=== PATIENT | male | born 1985 ===

== ENCOUNTER 2021-01-24 06:24 | Outpatient (REF) | payer OTHER, SELFPAY ==
[2021-01-24 08:22] LABS: MANUAL DIFF FLAG NO
[2021-01-24 08:30] LABS: Basophils Percent Auto 0.7 % (0-2); Eosinophils Absolute Auto 0.2 X10*3/uL (0.0-0.4); Eosinophils Percent Auto 3.2 % (0-4); Hematocrit 46.4 % (42-52); Hemoglobin 15.5 g/dl (14.0-18.0); Imm Gran Abs Auto 0.01 X10*3/uL (0.00-0.03); Imm Gran Pct Auto 0.2 % (0.0-0.4); Lymphocytes Absolute Auto 2.4 X10*3/uL (1.2-4.9); Lymphocytes Percent Auto 40.2 % (20-40); Mean Corpuscular HGB Conc 33.4 g/dl (31.0-36.0); Mean Corpuscular Hemoglobin 28.4 pg (27.0-33.0); Mean Corpuscular Volume 85.1 fL (80-98); Mean Platelet Volume 10.8 fL (9.4-12.4); Monocytes Absolute Auto 0.5 X10*3/uL (0.1-1.2); Monocytes Percent Auto 8.2 % (2-11); Neutrophils Absolute Auto 2.9 X10*3/uL (2.0-8.3); Neutrophils Percent Auto 47.5 % (45-73); Platelet Count 240 X10*3/uL (160-400); Red Blood Count 5.45 X10*6/uL (4.60-5.80); Red Cell Distribution Width 12.6 % (11.0-16.0)
[2021-01-24 09:04] LABS: Alanine Aminotransferase 20 U/L (0-40); Albumin Level 4.4 g/dL (3.5-5.0); Alkaline Phosphatase 66 U/L (39-117); Anion Gap 12 (12-20); Aspartate Amino Transferase 20 U/L (5-37); Bilirubin Total 0.3 mg/dL (0.0-1.0); Blood Urea Nitrogen 13 mg/dL (9-16); Calcium 9.1 mg/dL (8.4-10.2); Carbon Dioxide 26 mmol/L (22-29); Chloride 106 mmol/L (96-108); Cholesterol 199 mg/dL; Estimated Glomerular Filt Rate > 60; Glucose Fasting 100 mg/dL (60-99); HDL Cholesterol 37 mg/dL; LDL Cholesterol Calculated 135 mg/dl; Potassium 4.2 mmol/L (3.3-5.1); Sodium 140 mmol/L (135-145); Total Protein 7.1 g/dL (6.5-8.0); Triglycerides 136 mg/dL
== END 2021-01-24 06:25 | disposition home or self-care (01) ==
LOC: HO.LAB 06:24
PROVIDERS: PCP Internal Medicine; Visit Provider Internal Medicine
DX: D64.9 Anemia, unspecified (principal); G43.909 Migraine, unspecified, not intractable, without status migrainosus; E78.5 Hyperlipidemia, unspecified; Z82.49 Family history of ischemic heart disease and other diseases of the circulatory system
CPT/HCPCS: 36415; 80053; 80061; 85025

== ENCOUNTER 2021-12-31 14:46 | Emergency (ER) | payer OTHER, SELFPAY ==
--- NOTE | ~2021-12-31 | XR_ITS ---
EXAMINATION: XR CHEST CLINICAL INFORMATION: Chest pain COMPARISON: None TECHNIQUE: Frontal view of the chest was obtained. FINDINGS: Lungs clear. Heart and pulmonary vessels are normal. No congestive change. XR/XR chest 1V IMPRESSION: No active disease.
--- NOTE | 2021-12-31 15:02 | ECG_ITS ---
Test Reason : CHEST PAIN Blood Pressure : / mmHG Vent. Rate : 085 BPM Atrial Rate : 085 BPM P-R Int : 122 ms QRS Dur : 084 ms QT Int : 342 ms P-R-T Axes : 068 047 047 degrees QTc Int : 406 ms Normal sinus rhythm Minimal voltage criteria for LVH, may be normal variant ( Sokolow-Ortiz ) Borderline ECG No previous ECGs available Referred By: Generic ED Physician Electronically Signed By:DESHAUN PARIKH
[2021-12-31 15:09] VITALS: BP 129/79; PULSE 80; RESP 18; TEMP 36.8; O2SAT 99; BMI 21.0
[2021-12-31 15:22] LABS: MANUAL DIFF FLAG NO
[2021-12-31 15:25] LABS: Basophils Percent Auto 0.4 % (0-2); Eosinophils Absolute Auto 0.1 X10*3/uL (0.0-0.4); Eosinophils Percent Auto 0.9 % (0-4); Hemoglobin 14.5 g/dl (14.0-18.0); Imm Gran Abs Auto 0.01 X10*3/uL (0.00-0.03); Imm Gran Pct Auto 0.1 % (0.0-0.4); Lymphocytes Percent Auto 24.6 % (20-40); Mean Corpuscular HGB Conc 34.5 g/dl (31.0-36.0); Mean Corpuscular Hemoglobin 28.8 pg (27.0-33.0); Mean Corpuscular Volume 83.5 fL (80.0-98.0); Mean Platelet Volume 9.8 fL (9.4-12.4); Monocytes Absolute Auto 0.5 X10*3/uL (0.1-1.2); Monocytes Percent Auto 6.1 % (2-11); Neutrophils Absolute Auto 5.5 x10*3/uL (2.0-8.3); Neutrophils Percent Auto 67.9 % (45-73); Platelet Count 251 X10*3/uL (160-400); Red Blood Count 5.03 X10*6/uL (4.60-5.80); Red Cell Distribution Width 12.6 % (11.0-16.0); White Blood Count 8.1 X10*3/uL (4.8-10.8)
[2021-12-31 15:37] LABS: Anion Gap 11 (12-20); Blood Urea Nitrogen 15 mg/dL (9-16); Calcium 8.9 mg/dL (8.4-10.2); Carbon Dioxide 26 mmol/L (22-29); Chloride 107 mmol/L (96-108); Creatinine Clr Calc Pharmacy 107.4; Estimated Glomerular Filt Rate > 60; Glucose Random 104 mg/dL (60-115); Potassium 4.1 mmol/L (3.3-5.1); Sodium 140 mmol/L (135-145)
[2021-12-31 15:45] LABS: Troponin-I High Sensitivity < 3.5 ng/L (<3.5-35.0)
--- NOTE | 2021-12-31 20:21 | ED.CHESTPAIN ---
HPI - Chest Pain General Chief Complaint: Chest Pain Stated Complaint: chest pain Time Seen by Provider: 12/31/21 20:11 Source: patient Mode of arrival: ambulatory Limitations: no limitations History of Present Illness HPI narrative: 36-year-old male history of migraine headaches, presenting to the emergency department with concerns of substernal chest pain x2 days, unchanged. 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 He tells me if he sits up in a crunch position the pain worsens. He reports that the chest pain is substernal in nature without radiation, it is intermittent, at times precipitated by movement. He tells me that it feels like a pressure and at times it feels stabbing depending on the position he is in. He tells me this is never happened to him before. No significant personal or family history of heart disease. He denies fevers, chills, nausea, vomiting, headache, vision changes, dizziness, shortness of breath, numbness, tingling. MD complaint: chest pain Onset (ago): day(s) (2) Related Data Previous Rx's Medication Instructions Recorded sumatriptan succinate 100 mg tablet 100 mg PO Q2-4H PRN migraine 11/04/21 headache 30 days #9 tabs naproxen 500 mg tablet 500 mg PO BID PRN pain #14 tabs 12/31/21 Allergies Allergy/AdvReac Type Severity Reaction Status Date / Time No Known Allergies Allergy Verified 12/31/21 15:09 [No Known Allergies*] Review of Systems Review of Systems: Constitutional : No Weight loss, No Fever, No Chills, No Fatigue, No Malaise ENT/Mouth : No sore throat, No Rhinorrhea Eyes: No Eye Pain, No Swelling, No Redness Cardiovascular : + Chest Pain, No SOB, No Dyspnea on Exertion, No Orthopnea, No Edema, No Palpitations Respiratory : No Cough, No Sputum, No Wheezing Gastrointestinal : No Nausea, No Vomiting, No Diarrhea, No Constipation, No abdominal Pain, No Hematochezia, No Melena Genitourinary : No Dysuria, No Urinary Frequency, No Hematuria, Musculoskeletal : No joint pain, No Myalgias, No Joint Swelling Skin : No Skin Lesions, No rash Neuro : No Weakness, No Numbness, No Dizziness, No Headache Psych : No Anxiety/Panic, No Depression All other systems reviewed and are negative Yes all other systems are reviewed and are negative [facility] Past Medical History Attestation statement: The following information was validated with the patient. Source: old records reviewed and nursing notes reviewed Medical History Encounter for physical examination Family history of hypertension Migraines Surgical History No history of previous surgery Family History Family History Mother Hypertension Diabetes mellitus Father Hypertension CAD (coronary artery disease) Social History Social History Housing: House Alcohol intake: current Alcohol intake frequency: holidays/special occasions only Alcohol type: beer Patient Tobacco Use Status: Current everyday Tobacco user Cigarettes Per Day: 1 e-Cigarette/Vaping Use: Never Used Second Hand Smoke Exposure: Yes Advance Directives: No Advance Directives Information Provided: No service: No Current occupational status: employed Cognitive needs: No Hearing needs: No Vision needs: No Physical Exam Vital Signs: Vital Signs: Last Vital Signs Temp 98.2 F 12/31/21 15:09 Pulse 73 12/31/21 21:01 Resp 18 12/31/21 15:09 BP 129/79 12/31/21 15:09 Pulse Ox 100 12/31/21 21:01 O2 Del Method 12/31/21 21:01 BMI result Body Mass Index 21.0 VSS Appearance: Alert.? Oriented X3.? No acute distress.? Head: Normocephalic, atraumatic, no step-offs or deformities Eyes: Pupils equal, round and reactive to light.? ENT: Pharynx normal.? Neck: Normal inspection.? Neck supple.? CVS: Normal heart rate and rhythm.? Pulses normal.?+ pain with palpation of anterior chest wall. Respiratory: No respiratory distress.? Breath sounds normal.? Abdomen: Soft and nontender.? Skin: Skin warm and dry.? Normal skin color.? Normal skin turgor.? Extremities: No lower extremity edema.? No calf ttp. 5/5 strength to bilateral upper and lower extremities Neuro: Oriented X 3.? No motor deficit.? No sensory deficit. CN 2-12 intact Course Reevaluation(s) Reevaluation #1: CBC within normal limits. Chemistry with no acute electrolyte abnormalities requiring intervention. Troponin negative. Chest x-ray with no acute findings. Patient given Toradol, will re-evaluate patient for pain. Time: 20:58 Reevaluation #2: Patient states feeling better after toradol, again likely costochondritis. Very low suspicion for ACS. At this time patient will be discharged home. Advised to return with new or worsening symptoms. Outline these on his discharge. Time: 21:14 MDM - Chest Pain MDM Narrative Medical decision making narrative: 1999 36 yo m presents w/ reproducible anterior chest wall pain X2 days. Reports labor intensive job. No significant cardiac hx. PE w/ reproducible chest pain with palpation of anterior chest wall. Regular rate and rhythm. Lungs clear. Abdomen soft nontender nondistended. Neuro exam is nonfocal. Normal cerebellar function. 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 Likely costochondritis, unlikely ACS, PE, pneumonia. Plan at this time is cardiac monitoring, basic labs, troponin, EKG Medical Records Data Attestation: I reviewed the patient's medical records. Lab Data Attestation: I reviewed the patient's lab results. Result diagrams: 12/31/21 15:18 12/31/21 15:18 Labs: Lab Results 12/31/21 12/31/21 12/31/21 Range/Units 15:18 15:18 15:18 WBC 8.1 (4.8-10.8) X10*3/uL RBC 5.03 (4.60-5.80) X10*6/uL Hgb 14.5 (14.0-18.0) g/dl Hct 42.0 (42.0-52.0) % MCV 83.5 (80.0-98.0) fL MCH 28.8 (27.0-33.0) pg MCHC 34.5 (31.0-36.0) g/dl RDW 12.6 (11.0-16.0) % Plt Count 251 (160-400) X10*3/uL MPV 9.8 (9.4-12.4) fL Immature Gran % (Auto) 0.1 (0.0-0.4) % Neut % (Auto) 67.9 (45-73) % Lymph % (Auto) 24.6 (20-40) % [place] % (Auto) 6.1 (2-11) % Eos % (Auto) 0.9 (0-4) % Baso % (Auto) 0.4 (0-2) % Lymph # (Auto) 2.0 (1.2-4.9) X10*3/uL [place] # (Auto) 0.5 (0.1-1.2) X10*3/uL Eos # (Auto) 0.1 (0.0-0.4) X10*3/uL Baso # (Auto) 0.0 (0.0-0.2) X10*3/uL Abs Immat Gran (auto) 0.01 (0.00-0.03) X10*3/uL Absolute Neuts (auto) 5.5 (2.0-8.3) x10*3/uL Absolute Nucleated RBC 0.000 (0.0-0.012) X10*3/uL Nucleated RBC % (auto) 0.0 (0.0-0.2) /100WBC Sodium 140 (135-145) mmol/L Potassium 4.1 (3.3-5.1) mmol/L Chloride 107 (96-108) mmol/L Carbon Dioxide 26 (22-29) mmol/L Anion Gap 11 L (12-20) BUN 15 (9-16) mg/dL Creatinine 0.87 (0.5-1.4) mg/dL Estim Creat Clear Calc 107.4 Estimated GFR > 60 Random Glucose 104 (60-115) mg/dL Calcium 8.9 (8.4-10.2) mg/dL Troponin I High Sens < 3.5 (<3.5-35.0) ng/L ECG Data ECG #1: Attestation: I personally reviewed and interpreted this ECG as follows: ECG interpretation date: 12/31/21 ECG interpretation time: 20:55 Prior ECG tracings: not available for review Interpretation: Ventricular rate of 85, MS normal, QRS normal, QT/QTC normal. EKG with normal sinus rhythm, no ST elevations or inversions concerning for ischemia. No previous EKGs to compare with. Critical Care Time Critical Care Time Critical Care Time: No Discharge Plan Discharge Clinical Impression: Acute costochondritis Patient Disposition: Home, Self-Care Instructions: Costochondritis (ED) Additional Instructions: Take your medications as prescribed. If you were prescribed antibiotics today, it is important that you take your medication to their entirety, do not skip any doses, do not finish them early. Follow-up with your primary care provider this week. Return to the emergency department with new or worsening symptoms. Such as fevers, chills, chest pain, shortness of breath, nausea, vomiting, dizziness, headache, vision changes, lethargy In case of emergency call 911 Please do not take aspirin or ibuprofen with naproxen. Avoid drinking w/ this medication. Prescriptions: New naproxen 500 mg tablet 500 mg PO BID PRN (Reason: pain) Qty: 14 0RF Rx Instructions: Take with food No Action sumatriptan succinate 100 mg tablet 100 mg PO Q2-4H PRN (Reason: migraine headache) 30 Days Qty: 9 1RF Rx Instructions: do not exceed 2 doses per 24 hrs Referrals: Rashmi Moore MD [Primary Care Provider] - 2 days Stand Alone Forms: Work/School Release Interventions: ED Discharge Assessment Last Done: 12/31/21 21:05 Discharge Date/Time: 12/31/21 21:09
[2021-12-31 21:01] VITALS: PULSE 73; O2SAT 100
[2021-12-31] MEDS: Ketorolac Tromethamine 15 MG/ML VIAL IM (21:08)
== END 2021-12-31 21:09 | disposition home or self-care (01) ==
PROVIDERS: Emergency Provider Internal Medicine; PCP Internal Medicine
DX: M94.0 Chondrocostal junction syndrome [Tietze] (principal); F17.210 Nicotine dependence, cigarettes, uncomplicated
CPT/HCPCS: 36415; 71045; 80048; 84484; 85025; 93005; 96372; 99284; J1885

== ENCOUNTER 2022-02-24 08:04 | Outpatient (REF) | payer OTHER, SELFPAY ==
[2022-02-24 09:44] LABS: Alanine Aminotransferase 18 U/L (0-40); Albumin Level 4.3 g/dL (3.5-5.0); Alkaline Phosphatase 80 U/L (39-117); Anion Gap 14 (12-20); Aspartate Amino Transferase 21 U/L (5-37); Bilirubin Total 0.6 mg/dL (0.0-1.0); Blood Urea Nitrogen 10 mg/dL (9-16); Calcium 9.1 mg/dL (8.4-10.2); Carbon Dioxide 24 mmol/L (22-29); Chloride 106 mmol/L (96-108); Cholesterol 189 mg/dL; Estimated Glomerular Filt Rate > 60; Glucose Fasting 93 mg/dL (60-99); HDL Cholesterol 37 mg/dL; LDL Cholesterol Calculated 121 mg/dl; Potassium 4.2 mmol/L (3.3-5.1); Sodium 140 mmol/L (135-145); Total Protein 7.2 g/dL (6.5-8.0); Triglycerides 159 mg/dL
== END 2022-02-24 08:05 | disposition home or self-care (01) ==
LOC: HO.LAB 08:04
PROVIDERS: PCP Internal Medicine; Visit Provider Internal Medicine
DX: Z00.00 Encounter for general adult medical examination without abnormal findings (principal)
CPT/HCPCS: 36415; 80053; 80061

== ENCOUNTER 2022-05-26 08:07 | Emergency (ER) | payer OTHER, SELFPAY ==
[2022-05-26 08:08] VITALS: BP 122/84; PULSE 110; RESP 18; TEMP 36.9; O2SAT 98; BMI 20.7
--- NOTE | 2022-05-26 10:40 | ED.BACK ---
HPI - Back Pain/Injury General Chief Complaint: Back Pain/Injury Stated Complaint: back pain Time Seen by Provider: 05/26/22 09:47 History of Present Illness HPI Narrative: Patient complains of left-sided low back pain after lifting something at work yesterday, denies any numbness weakness or tingling no radiation of the pain, no change to bowel or bladder Related Data Previous Rx's Medication Instructions Recorded sumatriptan succinate 100 mg tablet 100 mg PO Q2-4H PRN migraine 11/04/21 headache 30 days #9 tabs naproxen 500 mg tablet 500 mg PO BID PRN pain #14 tabs 12/31/21 diclofenac sodium 1 % topical gel 2 g topical QID PRN pain #100 grams 01/05/22 (Arthritis Pain (diclofenac)) acetaminophen 500 mg tablet 1,000 mg PO QID PRN pain #30 tabs 05/26/22 cyclobenzaprine 5 mg tablet 5 mg PO TID PRN muscle spasm #14 05/26/22 tabs ibuprofen 600 mg tablet 600 mg PO Q6H PRN pain #20 tabs 05/26/22 oxycodone 5 mg tablet 5 mg PO Q6H PRN pain #10 tabs 05/26/22 Allergies Allergy/AdvReac Type Severity Reaction Status Date / Time No Known Allergies Allergy Verified 01/05/22 08:41 [No Known Allergies*] Review of Systems Review of Systems: Positive for left-sided low back pain after lifting at work Negatives are no fever no chills no dizziness no weakness no headache no neck pain no chest pain no shortness of breath no abdominal pain no nausea or vomiting no changes to bowel or bladder no dysuria no frequency no numbness weakness or tingling no radiation of the pain no difficulty ambulating no skin rash Yes all other systems are reviewed and are negative [facility] Past Medical History [facility] Narrative: No IV drug use no alcohol Source: nursing notes reviewed Medical History Encounter for physical examination Family history of hypertension Migraines Surgical History No history of previous surgery Family History Family History Mother Hypertension Diabetes mellitus Father Hypertension CAD (coronary artery disease) Social History Social History Housing: House Alcohol intake: current Alcohol intake frequency: holidays/special occasions only Alcohol type: beer Patient Tobacco Use Status: Current everyday Tobacco user Cigarettes Per Day: 1 e-Cigarette/Vaping Use: Never Used Second Hand Smoke Exposure: Yes service: No Current occupational status: employed Cognitive needs: No Hearing needs: No Vision needs: No Physical Exam Vital Signs: Vital Signs: Last Vital Signs Temp 98.4 F 05/26/22 08:08 Pulse 110 H 05/26/22 08:08 Resp 18 05/26/22 08:08 BP 122/84 05/26/22 08:08 Pulse Ox 98 05/26/22 08:08 O2 Del Method 05/26/22 08:08 BMI result Body Mass Index 20.7 General appearance no acute distress Head is normocephalic atraumatic Neck is supple Respiratory no distress Chest clear to auscultation bilateral Abdomen soft nontender The back there is left-sided lower lumbar paraspinal tenderness soft tissue tenderness there is no focal bony tenderness No CVA tenderness Skin of the back is normal no redness no rashes no wounds Extremities for range of motion x4 Neuro gait and balance are normal, motor is 5/5 x4 and sensation is intact and symmetrical in distal extremities Course Course Course Narrative: Patient with musculoskeletal back pain from lifting at work with no neurologic deficit no changes to bowel or bladder no fever is discharged to follow with [facility] for work related injury Medications Administered Discontinued Medications Generic Name Dose Route Start Last Admin Trade Name Freq PRN Reason Stop Dose Admin Acetaminophen 975 mg 05/26/22 10:40 05/26/22 10:44 Acetaminophen 325 Mg Tablet PO 05/26/22 10:41 975 mg ONCE ONE Administration Ketorolac Tromethamine 30 mg 05/26/22 10:40 05/26/22 10:44 Ketorolac Tromethamine 30 Mg/Ml Vial IM 05/26/22 10:41 30 mg ONCE ONE Administration Discharge Plan Discharge Clinical Impression: Strain of lumbar region Patient Disposition: Home, Self-Care Additional Instructions: You likely have strained muscles or ligaments in your back Follow with work connection for work related injury Return any time any worse condition or any concerns Prescriptions: New acetaminophen 500 mg tablet 1,000 mg PO QID PRN (Reason: pain) Qty: 30 0RF cyclobenzaprine 5 mg tablet 5 mg PO TID PRN (Reason: muscle spasm) Qty: 14 0RF ibuprofen 600 mg tablet 600 mg PO Q6H PRN (Reason: pain) Qty: 20 0RF oxycodone 5 mg tablet 5 mg PO Q6H PRN (Reason: pain) Qty: 10 0RF Rx Instructions: Partial Fill upon patient request. No Action naproxen 500 mg tablet 500 mg PO BID PRN (Reason: pain) Qty: 14 0RF Rx Instructions: Take with food sumatriptan succinate 100 mg tablet 100 mg PO Q2-4H PRN (Reason: migraine headache) 30 Days Qty: 9 1RF Rx Instructions: do not exceed 2 doses per 24 hrs diclofenac sodium [Arthritis Pain (diclofenac)] 1 % gel 2 g topical QID PRN (Reason: pain) Qty: 100 0RF Rx Instructions: apply to single elbow, wrist or hand; for hand includes palm/fingers/back of hand Referrals: [facility] [Provider Group] (Back injury from lifting at work) Stand Alone Forms: Work/School Release Interventions: ED Discharge Assessment Last Done: 05/26/22 10:51 Discharge Date/Time: 05/26/22 10:53
[2022-05-26] MEDS: Ketorolac Tromethamine 30 MG/ML VIAL IM (10:44)
[2022-05-26] MEDS: Acetaminophen 325 MG TABLET 975 MG PO (10:44)
== END 2022-05-26 10:53 | disposition home or self-care (01) ==
PROVIDERS: Emergency Provider Emergency Medicine Emergency Medical Services; PCP Internal Medicine
DX: S39.012A Strain of muscle, fascia and tendon of lower back, initial encounter (principal); X50.0XXA Overexertion from strenuous movement or load, initial encounter; F17.200 Nicotine dependence, unspecified, uncomplicated; Y93.89 Activity, other specified; Y92.214 College as the place of occurrence of the external cause; Y99.0 Civilian activity done for income or pay
CPT/HCPCS: 96372; 99283; 99284; J1885

== ENCOUNTER → 2022-05-27 10:52 | Outpatient (BNVA) | payer OTHER, SELFPAY | PROVIDERS: PCP Internal Medicine; Visit Provider Physician Assistant Medical | DX: S39.012A Strain of muscle, fascia and tendon of lower back, initial encounter (principal); X58.XXXA Exposure to other specified factors, initial encounter | CPT/HCPCS: 72110; 99202 ==

== ENCOUNTER → 2022-06-03 08:05 | Outpatient (BNVA) | payer OTHER, SELFPAY | PROVIDERS: PCP Internal Medicine; Visit Provider Physician Assistant Medical | DX: S39.012A Strain of muscle, fascia and tendon of lower back, initial encounter (principal); X58.XXXA Exposure to other specified factors, initial encounter | CPT/HCPCS: 99213 ==

== ENCOUNTER → 2022-06-17 09:05 | Outpatient (BNVA) | payer OTHER, SELFPAY | PROVIDERS: PCP Internal Medicine; Visit Provider Physician Assistant Medical | DX: S39.012D Strain of muscle, fascia and tendon of lower back, subsequent encounter (principal); X58.XXXD Exposure to other specified factors, subsequent encounter | CPT/HCPCS: 99213 ==

== ENCOUNTER → 2022-07-01 09:00 | Outpatient (BNVA) | payer OTHER, SELFPAY | PROVIDERS: PCP Internal Medicine; Visit Provider Physician Assistant Medical | DX: S39.012D Strain of muscle, fascia and tendon of lower back, subsequent encounter (principal); X58.XXXD Exposure to other specified factors, subsequent encounter | CPT/HCPCS: 99213 ==

== ENCOUNTER → 2022-07-10 09:42 | Outpatient (BNVA) | payer OTHER, SELFPAY | PROVIDERS: PCP Internal Medicine; Visit Provider Physician Assistant | DX: S39.012D Strain of muscle, fascia and tendon of lower back, subsequent encounter (principal); X58.XXXD Exposure to other specified factors, subsequent encounter | CPT/HCPCS: 99213 ==

== ENCOUNTER 2022-11-10 06:57 | Outpatient (REF) | payer OTHER, SELFPAY ==
[2022-11-10 08:10] LABS: Alanine Aminotransferase 14 U/L (0-40); Albumin Level 4.5 g/dL (3.5-5.0); Alkaline Phosphatase 76 U/L (39-117); Anion Gap 10 (12-20); Aspartate Amino Transferase 20 U/L (5-37); Bilirubin Total 0.4 mg/dL (0.0-1.0); Blood Urea Nitrogen 15 mg/dL (9-16); Calcium 9.1 mg/dL (8.4-10.2); Carbon Dioxide 27 mmol/L (22-29); Chloride 108 mmol/L (96-108); Cholesterol 195 mg/dL; Estimated Glomerular Filt Rate > 60; Glucose Fasting 92 mg/dL (60-99); HDL Cholesterol 35 mg/dL; LDL Cholesterol Calculated 130 mg/dl; Potassium 4.7 mmol/L (3.3-5.1); Sodium 140 mmol/L (135-145); Total Protein 7.2 g/dL (6.5-8.0); Triglycerides 154 mg/dL
== END 2022-11-10 06:58 | disposition home or self-care (01) ==
LOC: HO.LAB 06:57
PROVIDERS: PCP Internal Medicine; Visit Provider Internal Medicine
DX: Z00.00 Encounter for general adult medical examination without abnormal findings (principal); E78.5 Hyperlipidemia, unspecified
CPT/HCPCS: 36415; 80053; 80061

== ENCOUNTER 2023-05-28 12:50 | Outpatient (AMB) | payer OTHER, SELFPAY ==
[2023-05-28 12:51] VITALS: BP 132/68; PULSE 90; O2SAT 99; BMI 21.3
--- NOTE | 2023-05-28 12:51 | MHC.PC.OV ---
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 Review of the notes patient had an ER visit in May 2022 for left-sided low back pain after lifting something at work diagnosis of strain of the lumbar region. Patient was prescribed Tylenol cyclobenzaprine Motrin and oxycodone. January 2022 had chest pains diagnosis of costochondritis. Mesha ([id number]) interpret . presently have low back pain again, asking for an xray. still works in the same place lifting-1.5 months. deny fall or trauma, ? burning on urination , states L thigh, PAtient is also asking for migraine med- advised to prevent and ff up with migraine doctor. increase oral fluids, have adequates sleep. [facility] Medical History Encounter for physical examination Family history of hypertension Migraines Surgical History No history of previous surgery Family History Mother Hypertension Diabetes mellitus Father Hypertension CAD (coronary artery disease) Social History Housing: House Alcohol intake: former Patient Tobacco Use Status: Former Tobacco user Tobacco use type: Cigarette Cigarettes Per Day: 1 e-Cigarette/Vaping Use: Never Used Second Hand Smoke Exposure: Yes service: No Current occupational status: employed Current occupational exposures/hazards: No Cognitive needs: No Hearing needs: No Vision needs: No Questionnaire Thrive Questionnaire Date Thrive assessed: 11/05/22 AUDIT C Alcohol Use Questionnaire (AUDIT-C) 1. How often do you have a drink containing alcohol?: Never Total Score: 0 KATE-7 AMB Questionnaire KATE-7 Date KATE - 7 assessed: 11/05/22 Source: Developed by Drs. Davidson Kingston, Amy Gerber, Jesus Salcido and colleagues, with an educational steve from [employer]. Physical exam (Primary Care) Vital Signs: Last Vital Signs Pulse 90 05/28/23 12:51 BP 132/68 05/28/23 12:51 Pulse Ox 99 05/28/23 12:51 Oxygen Delivery Method Room Air 05/28/23 12:51 BMI result Body Mass Index 21.3 Tobacco/Smoking Status: Tobacco use Status Tobacco use date assessed 05/28/23 05/28/23 12:51 Patient Tobacco Use Status Former Tobacco user 05/28/23 12:51 Tobacco use type Cigarette 05/28/23 12:51 e-Cigarette/Vaping Use Never Used 05/28/23 12:51 Thrive Assessment: Date of Thrive Assessment Date Thrive assessed 11/05/22 05/28/23 12:51 Const General: alert; No acute distress Eyes Conjunctivae: conjunctivae normal Resp Auscultation: clear to auscultation bilaterally Cardio Rate: regular rate Rhythm: regular rhythm GI Inspection: Yes normal to inspection Extrem General: Yes normal to inspection and No edema Office Procedures Flu Questionnaire Does the patient have a severe egg allergy?: No Does the patient have severe life threatening allergies?: No Does the patient have a fever or illness today?: No Has the patient ever had Guillain-Lindley Syndrome?: No Has the patient ever had any past reaction to a flu shot?: No Immunizations flu vacc [id number] 6mos up(PF) 60 mcg(15 mcgx4)/0.5 mL IM syringe Performing Provider: Anirudh Price MD [facility] Administered by: SANDY Meyer on 05/28/23 13:00 Dose Route Admin Location Dispensed Lot Number Expiration Date NDC Assistant To [employer] 0.5 mL IM Left Deltoid 0.5 mL [id number] 12/05/23 [id number] [place] VIS Given Date VIS Provided VIS Publication Date 05/28/23 Single Vaccine 21 Eligibility Eligibility Date Funding Source Not [facility] Eligible 05/28/23 Private Assessment and Plan Assessment & Plan (1) Low back pain: Code(s): M54.50 - Low back pain, unspecified (2) Migraines: Code(s): G43.909 - Migraine, unspecified, not intractable, without status migrainosus Qualifiers: Intractability: not intractable Migraine type: with aura Status migrainosus presence: without status migrainosus Qualified Code(s): G43.109 - Migraine with aura, not intractable, without status migrainosus (3) Costochondritis: Code(s): M94.0 - Chondrocostal junction syndrome [Tietze] (4) Dysuria: Code(s): R30.0 - Dysuria Orders: Orders Influenza [id number] Immunization Today Z23 - Encounter for immunization XR lumbar spine 2-3V Today M54.50 - Low back pain, unspecified UA w Microscopic Today R30.0 - Dysuria Coding Level of Care Code Est Pt Level 4 (92227) Diagnoses Low back pain M54.50 Migraine with aura and without status migrainosus, not intractable G43.109 Intractability: not intractable Migraine type: with aura Status migrainosus presence: without status migrainosus Costochondritis M94.0 Dysuria R30.0
== END 2023-05-28 13:25 | disposition home or self-care (01) ==
PROVIDERS: PCP Internal Medicine; Visit Provider Internal Medicine
DX: M54.50 Low back pain, unspecified (principal); G43.109 Migraine with aura, not intractable, without status migrainosus; M94.0 Chondrocostal junction syndrome [Tietze]; Z23 Encounter for immunization; R30.0 Dysuria
CPT/HCPCS: 90471; 90686; 99214

== ENCOUNTER 2023-05-28 13:29 | Outpatient (REF) | payer OTHER, SELFPAY ==
[2023-05-28 15:48] LABS: Appearance Urine Clear; Color Urine Yellow; Glucose Urine UA Negative (Negative); Leukocyte Esterase Urine Negative (Negative); Nitrite Urine Negative (Negative); Urine Blood Negative (Negative); Urine Ketones Negative (Negative); Urine Protein Negative (Neg-Trace)
[2023-05-28 15:51] LABS: Bacteria Urine None Seen (None Seen); Hyaline Casts Urine 0-2 /LPF (0-2); Squamous Epithelial Cell Urine 0-2 /HPF (0-2); WBC Urine 0-5 /HPF (0-5)
== END 2023-05-28 13:30 | disposition home or self-care (01) ==
LOC: HO.LAB 13:29
PROVIDERS: PCP Internal Medicine; Visit Provider Internal Medicine
DX: R30.0 Dysuria (principal); R31.9 Hematuria, unspecified; M54.50 Low back pain, unspecified
CPT/HCPCS: 72100; 81001

== ENCOUNTER 2023-07-08 08:06 | Outpatient (REF) | payer OTHER, SELFPAY ==
--- NOTE | ~2023-07-08 | CT_ITS ---
EXAMINATION: CT ABDOMEN AND PELVIS WITHOUT AND WITH CONTRAST CLINICAL INFORMATION: Hematuria. COMPARISON: None available. TECHNIQUE: Noncontrast CT of the abdomen and pelvis is performed followed by split bolus contrast-enhanced images using 85 mL Omnipaque 350 contrast.? Postcontrast imaging is performed during the combined nephrogram and excretion phase. Sagittal and coronal reformatted images were obtained on the technologist's workstation for both the precontrast and postcontrast phases. This CT examination was performed using dose optimization techniques as appropriate, variously including the following: *Automated exposure control *Adjustment of mA and/or kV according to patient size (this includes techniques or standardized protocols for targeted exams where dose is matched to indication/reason for exam; i.e. extremities or head) *Use of iterative reconstruction technique DLP: 484.00 mGy-cm FINDINGS: LUNG BASES: The visualized lung bases are unremarkable. LIVER, GALLBLADDER, AND BILIARY TREE: The liver is normal in size, shape, and attenuation. No focal hepatic lesion or biliary ductal dilatation is present. The gallbladder is unremarkable with no evidence of radiopaque gallstones, gallbladder wall thickening, or obvious pericholecystic inflammatory changes. PANCREAS: Unremarkable. SPLEEN: Unremarkable. ADRENAL GLANDS: Unremarkable. KIDNEYS AND URETERS: The kidneys are normal in size, shape, and attenuation. No hydronephrosis, hydroureter, or calculi seen. At the interpolar aspect of the left kidney (9:38), a 9 mm benign, simple cyst is seen, with postcontrast Hounsfield value of 8.1 units. This requires no imaging follow-up. No perinephric stranding. BLADDER: Unremarkable. GASTROINTESTINAL TRACT: The small and large bowel are unremarkable. The appendix is unremarkable. ABDOMINAL WALL: No significant hernia is appreciated. LYMPH NODES: Normal. VASCULAR: Unremarkable. PELVIC VISCERA: The prostate and seminal vessicles are unremarkable. OSSEUS STRUCTURES: Unremarkable. CT/CT urogram IMPRESSION: No urinary mass, calculus or obstruction is seen. There is a 9 mm benign, simple left renal cyst, for which no imaging follow-up is recommended.
[2023-07-08] MEDS: iohexoL 350 MG/ML 100 ML INFUS..BTL IV (09:20)
== END 2023-07-08 08:07 | disposition home or self-care (01) ==
LOC: HO.CT 08:06
PROVIDERS: PCP Internal Medicine; Visit Provider Internal Medicine
DX: R31.9 Hematuria, unspecified (principal)
CPT/HCPCS: 74178; Q9967

== ENCOUNTER 2023-09-01 10:58 | Outpatient (AMB) | payer OTHER, SELFPAY ==
[2023-09-01 11:00] VITALS: BP 112/70; PULSE 85; O2SAT 98; BMI 21.7
--- NOTE | 2023-09-01 11:00 | A.OFFPC_ITS ---
Vital Signs 09/01/23 11:00 Height 5 ft 9 in Weight 147 lb BMI 21.7 BP 112/70 Blood Pressure Location Lt brachial Position Sitting Pulse 85 Pulse Source Pulse Oximeter Pulse Oximetry (%) 98 Oxygen Delivery Method Room Air Intake Visit Reasons: 3 month f/u Intake Note: Patient is here to follow up on 3 months Senior Human Resources Representative Required: Yes Senior Human Resources Representative Language: Telugu Allergies No Known Allergies [No Known Allergies*] Allergy (Verified 09/01/23 11:01) Medication List - Last Reconciled 09/01/23 by Anirudh Price MD No Known Home Meds sumatriptan succinate 100 mg PO Q2-4H PRN 30 days Tobacco use date assessed: 09/01/23 Dental Screening Dental Screen Date: 09/01/23 HPI 3 month f/u HPI Details 38-year-old male with a history of migra coleman chronic low back pain hypercholesterolemia last seen in May 2023. Patient is here for follow-up. Concern about hematuria in a CT scan was done revealing no urinary mass calculus or obstruction they did see a 9 mm left renal cyst. Patient also had an x-ray of the lower back with no evidence of degenerative disc disease fracture malalignment. Kwabena [id number] interpret. L flank pain , no radiation, 1 months deny trauma or fall, - also complains of frequency at night. [facility] [place] Medical History (Updated 08/29/23 @ 13:39 by Anirudh Price MD) Encounter for physical examination Family history of hypertension Migraines Surgical History No history of previous surgery Family History Mother Hypertension Diabetes mellitus Father Hypertension CAD (coronary artery disease) Social History Housing: House Alcohol intake: former Patient Tobacco Use Status: Former Tobacco user Tobacco use type: Cigarette Cigarettes Per Day: 1 e-Cigarette/Vaping Use: Never Used Second Hand Smoke Exposure: Yes service: No Current occupational status: employed Current occupational exposures/hazards: No Cognitive needs: No Hearing needs: No Vision needs: No Questionnaire Thrive Questionnaire Date Thrive assessed: 09/01/23 I am a: Patient What is your living situation today?: I have a steady place to live Within the past 12 months, did the food you bought not last and you didn't have the money to get more?: Never true Within the past 12 months, did you worry whether your food would run out before you got money to buy more?: Never true Do you have trouble paying for medicines?: No Do you have trouble getting transportation to medical appointments?: No Do you have trouble paying your heating and electricity bill?: No Do you have trouble taking care of your child, family member or friend?: No Do you have trouble with day-to-day activities such as bathing, preparing meals, shopping, managing finances, etc.?: No Are you currently unemployed and looking for a job?: No Are you interested in more education?: No Please select the resources that you would like help with: None Currently or been in a relationship where the following occur: no concerns reported THRIVE Score: 0 AUDIT C Alcohol Use Questionnaire (AUDIT-C) 1. How often do you have a drink containing alcohol?: Never 3. How often do you have six or more drinks on one occasion?: Never Total Score: 0 KATE-7 AMB Questionnaire KATE-7 Date KATE - 7 assessed: 09/01/23 Source: Developed by Drs. Davidson Kingston, Amy Gerber, Jesus Salcido and colleagues, with an educational steve from [employer]. Physical exam (Primary Care) Vital Signs: Last Vital Signs Pulse 85 09/01/23 11:00 BP 112/70 09/01/23 11:00 Pulse Ox 98 09/01/23 11:00 Oxygen Delivery Method Room Air 09/01/23 11:00 BMI result Body Mass Index 21.7 Tobacco/Smoking Status: Tobacco use Status Tobacco use date assessed 09/01/23 09/01/23 11:02 Patient Tobacco Use Status Former Tobacco user 09/01/23 11:02 Tobacco use type Cigarette 09/01/23 11:02 e-Cigarette/Vaping Use Never Used 09/01/23 11:02 Thrive Assessment: Date of Thrive Assessment Date Thrive assessed 09/01/23 09/01/23 11:02 Currently or been in a relationship where the following occur: no concerns reported Const General: alert; No acute distress Eyes Conjunctivae: conjunctivae normal Resp Auscultation: clear to auscultation bilaterally Cardio Rate: regular rate Rhythm: regular rhythm GI Inspection: Yes normal to inspection Extrem General: Yes normal to inspection and No edema Assessment and Plan Assessment & Plan (1) Hypercholesterolemia: Code(s): E78.00 - Pure hypercholesterolemia, unspecified Plan: Avoid fried foods, chicken skin, eggs, butter margarine, pastries and meat. Be it pork or beef they have a lot of cholesterol LDL goal of less than 130 and triglyceride of less than 150. (2) Hematuria: Code(s): R31.9 - Hematuria, unspecified Plan: Patient had a workup done with CT scan but was negative. Advised to be referred to Urology (3) Low back pain: Code(s): M54.50 - Low back pain, unspecified Plan: X-rays of the lumbar spine negative keep active. (4) Migraines: Code(s): G43.909 - Migraine, unspecified, not intractable, without status migrainosus Qualifiers: Migraine type: with aura Status migrainosus presence: without status migrainosus Intractability: not intractable Qualified Code(s): G43.109 - Migraine with aura, not intractable, without status migrainosus Plan: Continue with sumatriptan p.r.n.. (5) Dysuria: Code(s): R30.0 - Dysuria Plan: With the patient complaining of dysuria as well as frequency will refer to Urology. Cytology requested as well as an ultrasound of the bladder. Orders: Orders US bladder Today R30.0 - Dysuria Urine Cytology Today R30.0 - Dysuria Referrals Urology Referral R30.0 - Dysuria Coding Level of Care Code Est Pt Level 4 (05136) Diagnoses Hypercholesterolemia E78.00 Hematuria R31.9 Low back pain M54.50 Migraine with aura and without status migrainosus, not intractable G43.109 Migraine type: with aura Status migrainosus presence: without status migrainosus Intractability: not intractable Dysuria R30.0
== END 2023-09-01 11:55 | disposition home or self-care (01) ==
PROVIDERS: PCP Internal Medicine; Visit Provider Internal Medicine
DX: E78.00 Pure hypercholesterolemia, unspecified (principal); R31.9 Hematuria, unspecified; M54.50 Low back pain, unspecified; G43.109 Migraine with aura, not intractable, without status migrainosus; R30.0 Dysuria; F17.210 Nicotine dependence, cigarettes, uncomplicated
CPT/HCPCS: 99214

== ENCOUNTER 2023-09-07 11:07 | Outpatient (REF) | payer OTHER, SELFPAY ==
--- NOTE | ~2023-09-07 | US_ITS ---
EXAMINATION: US PELVIS LIMITED (BLADDER) CLINICAL INFORMATION: Dysuria. COMPARISON: CT urogram dated 06/26/2023. TECHNIQUE: Real-time imaging of the bladder. FINDINGS: BLADDER: Well distended and normal. Bilateral ureteral jets are demonstrated. Prevoid bladder volume is 407 mL. Postvoid bladder volume is 5 mL. ADDITIONAL FINDINGS: Prostate dimensions are 3.6 x 3.0 x 3.9 cm (volume 21.9 mL). Coarse central prostate calcifications are noted. US/US bladder IMPRESSION: Unremarkable examination.
== END 2023-09-07 11:08 | disposition home or self-care (01) ==
LOC: HO.US 11:07
PROVIDERS: PCP Internal Medicine; Visit Provider Internal Medicine
DX: R30.0 Dysuria (principal)
CPT/HCPCS: 76857

== ENCOUNTER 2023-10-06 10:49 | Outpatient (AMB) | payer OTHER, SELFPAY ==
--- NOTE | 2023-10-06 11:08 | A.OFFVIS_ITS ---
Intake Visit Reasons: dysuria and renal cyst Intake Note: New Patient presents for initial visit for dysuria and renal cyst Urology Medications: none Blood Thinner: none Php Mysql Developer Required: Yes Php Mysql Developer Name: ALEX SHEPHERD Accompanied by: Self / Same As Patient Allergies No Known Allergies [No Known Allergies*] Allergy (Verified 10/06/23 11:31) Medication List - Last Reconciled 10/06/23 by BHAVANA Jacobson No Known Home Meds sumatriptan succinate 100 mg PO Q2-4H PRN 30 days HPI Comments Details: Brijesh is a very pleasant 38-year-old Wallisian-speaking male patient of . He has a past medical history of migraines. He presents to the office today as a new patient for ongoing lower urinary tract symptoms and renal cyst. In discussion with the patient today he reports having followed up with his PCP for flank pain he had been experiencing at which time a CT urogram was ordered for further assessment evaluation. These results reviewed with the patient today. Bilateral kidneys are normal in size, shape, and attenuation. No hydronephrosis, hydroureter, or calculi seen. At the interpolar aspect of the left kidney a 9 mm benign simple cyst is seen which requires no imaging follow-up per radiology report. The bladder is unremarkable. In review of patient's chart it appears there was also a bladder ultrasound ordered for dysuria and these results were reviewed with the patient today. The bladder is well distended and normal. Bilateral ureteral jets are demonstrated. Pre void bladder volume is approximately 400 mL. Postvoid bladder volume is approximately 5 mL. Prostate volume is approximately 22 mL. Unremarkable bladder ultrasound. When asked he reports urinary frequency and episodes of nocturia up to 20 times per night. He otherwise denies urinary urgency, incontinence, hematuria, dysuria, foul smelling urine, changes to urinary stream, flank pain, fever, and or chills. Discussed at length potential causes for urinary frequency and nocturia. Discussed further workup of sleep apnea. In office urinalysis results reviewed with the patient today. PVR 0 mL. Discussed possible near future in office cystoscopy for further assessment evaluation. [facility] Medical History Encounter for physical examination Family history of hypertension Migraines Surgical History No history of previous surgery Family History Mother Hypertension Diabetes mellitus Father Hypertension CAD (coronary artery disease) Social History Housing: House Alcohol intake: former Patient Tobacco Use Status: Former Tobacco user Tobacco use type: Cigarette Cigarettes Per Day: 1 e-Cigarette/Vaping Use: Never Used Second Hand Smoke Exposure: Yes service: No Current occupational status: employed Current occupational exposures/hazards: No Cognitive needs: No Hearing needs: No Vision needs: No Review of Systems Const All systems reviewed & are unremarkable except as noted in HPI and below Reports no additional complaints Eyes Reports no additional complaints ENT Reports no additional complaints Card Reports no additional complaints Resp Reports no additional complaints GI Reports no additional complaints Reports as per HPI Musc Reports no additional complaints Neuro Reports as per HPI Psych Reports no additional complaints Endo Reports no additional complaints Ezra/Lymph Reports no additional complaints Aller/Immun Reports no additional complaints Physical Exam Const General: cooperative, healthy appearing, comfortable, no acute distress, well developed, alert and awake Orientation/consciousness: patient oriented x3 Limitations: no limitations HEENT Head: Yes normal to inspection, Yes normocephalic and Yes atraumatic Ears: hearing grossly normal bilaterally Eyes General: appearance normal, both eyes and all related structures Neck Neck: Yes normal visual inspection and Yes trachea midline Chest Chest palpation & inspection: normal inspection of the chest Resp Effort & Inspection: normal respiratory effort and able to speak in complete sentences Cardio Rate: regular rate GI Inspection: Yes normal to inspection General: Yes no CVA tenderness Back/Spine/Pelvis Back: no CVA tenderness Skin General skin exam: no rashes or lesions noted Neuro General: patient oriented x3 Extrem General: Yes normal to inspection Psych Appearance: grossly normal and well kempt Mental Status: mental status grossly normal Speech and movement: Normal speech and movement present and Clear speech present Affect: normal affect Attitude: cooperative Thought process: Normal thought process present Thought content: Normal thought content present Insight: Fair insight present (Psych) Judgement: Fair judgement present (Psych) Results AMB Urinalysis, Automated UA Leukoctes 0 Edwin/uL Last Edit by Farida Guidry on 10/06/23 11:16 UA Nitrite Negative Last Edit by Farida Guidry on 10/06/23 11:16 UA Urobilinogen 0.2 mg/dL Last Edit by Brandyce Bress on 10/06/23 11:16 UA Protein 0 mg/dL Last Edit by Brandyce Bress on 10/06/23 11:16 UA pH 6.0 Last Edit by Brandyce Bress on 10/06/23 11:16 UA Blood 0 Ed/uL Last Edit by Brandyce Bress on 10/06/23 11:16 UA Specific Winger 1.020 Last Edit by Brandyce Bress on 10/06/23 11:16 UA Ketone Negative Last Edit by Brandyce Bress on 10/06/23 11:16 UA Bilirubin 0 mg/dL Last Edit by Alexyce Bress on 10/06/23 11:16 UA Glucose 0 mg/dL Last Edit by Brandyce Bress on 10/06/23 11:16 Quality Reporting (2019) Adult ([facility] 138/07/29/68) Smoking risk assessment performed?: Yes Patient Tobacco Use Status: Former Tobacco user Results Reviewed Results Reviewed: Laboratory Last Values Urine pH (Auto) 6.0 10/06/23 11:12 Specific Winger (Auto) 1.020 10/06/23 11:12 Urine Protein (Auto) 0 mg/dL 10/06/23 11:12 Glucose (UA)(Auto) 0 mg/dL 10/06/23 11:12 Urine Ketones (Auto) Negative 10/06/23 11:12 Urine Blood (Auto) 0 Ed/uL 10/06/23 11:12 Urine Nitrite (Auto) Negative 10/06/23 11:12 Urine Bilirubin (Auto) 0 mg/dL 10/06/23 11:12 Urine Urobilinogen (Auto) 0.2 mg/dL 10/06/23 11:12 Leukocyte Esterase (Auto) 0 Edwin/uL 10/06/23 11:12 Date of Service: 09/07/23 EXAMINATION: US PELVIS LIMITED (BLADDER) FINDINGS: BLADDER: Well distended and normal. Bilateral ureteral jets are demonstrated. Prevoid bladder volume is 407 mL. Postvoid bladder volume is 5 mL. ADDITIONAL FINDINGS: Prostate dimensions are 3.6 x 3.0 x 3.9 cm (volume 21.9 mL). Coarse central prostate calcifications are noted. IMPRESSION: Unremarkable examination. ----- Date of Service: 07/08/23 EXAMINATION: CT ABDOMEN AND PELVIS WITHOUT AND WITH CONTRAST FINDINGS: LUNG BASES: The visualized lung bases are unremarkable. LIVER, GALLBLADDER, AND BILIARY TREE: The liver is normal in size, shape, and attenuation. No focal hepatic lesion or biliary ductal dilatation is present. The gallbladder is unremarkable with no evidence of radiopaque gallstones, gallbladder wall thickening, or obvious pericholecystic inflammatory changes. PANCREAS: Unremarkable. SPLEEN: Unremarkable. ADRENAL GLANDS: Unremarkable. KIDNEYS AND URETERS: The kidneys are normal in size, shape, and attenuation. No hydronephrosis, hydroureter, or calculi seen. At the interpolar aspect of the left kidney (9:38), a 9 mm benign, simple cyst is seen, with postcontrast Hounsfield value of 8.1 units. This requires no imaging follow-up. No perinephric stranding. BLADDER: Unremarkable. GASTROINTESTINAL TRACT: The small and large bowel are unremarkable. The appendix is unremarkable. ABDOMINAL WALL: No significant hernia is appreciated. LYMPH NODES: Normal. VASCULAR: Unremarkable. PELVIC VISCERA: The prostate and seminal vessicles are unremarkable. OSSEUS STRUCTURES: Unremarkable. IMPRESSION: No urinary mass, calculus or obstruction is seen. There is a 9 mm benign, simple left renal cyst, for which no imaging follow-up is recommended. Assessment & Plan Assessment & Plan (1) Nocturia: Code(s): R35.1 - Nocturia Category: Medical (2) Urinary frequency: Code(s): R35.0 - Frequency of micturition Category: Medical Plan In office urinalysis results reviewed with the patient today; as noted above. PVR [address] and bladder ultrasound results reviewed with the patient today; as noted above. Discussed at length potential causes for urinary frequency and nocturia. Will refer for home sleep study for further assessment evaluation. Discussed, educated, and stressed the importance of drinking plenty of water daily. Start Flomax as discussed and prescribed. Discussed possible near future in office cystoscopy for further assessment evaluation. Follow-up in 6-8 weeks with PVR; or sooner with any issues, concerns, and or questions. Orders: Orders AMB Urinalysis Automated Today Z13.9 - Encounter for screening, unspecified RT home sleep study Today R06.83 - Snoring, R35.1 - Nocturia, R53.83 - Other fatigue Medications: New tamsulosin 0.4 mg PO BEDTIME 30 days 30 caps 1RF N40.1 - Benign prostatic hyperplasia with lower urinary tract symptoms, R35.1 - Nocturia Patient Instructions: The patient had an opportunity to ask questions regarding the treatment plan. All questions were answered. Physical exam, labs, and imaging were discussed and reviewed in detail. As well as risks, benefits, and discussion of treatment choices. No major barriers to understanding were identified. The patient expressed understanding and agreement with the above treatment plan. The patient was made aware they should contact our office by phone for worsening of their current condition, the appearance of new symptoms, or with any questions or concerns. Compliance is encouraged with any medications and follow up testing that is ordered. It is a privilege to be allowed the opportunity to participate in? your urological care.? Again, if you have any questions or concerns If you have any questions or concerns please do not hesitate to contact me. The office is [phone]. This note is constructed using voice recognition software. While every effort has been made to ensure accuracy rn gynecology errors may have been included. Yours sincerely, BHAVANA Jacobson Coding Level of Care Code New Pt Level 4 (92891) Diagnoses Nocturia R35.1 Urinary frequency R35.0
== END 2023-10-06 11:38 | disposition home or self-care (01) ==
PROVIDERS: PCP Internal Medicine; Visit Provider Nurse Practitioner Family
DX: R35.1 Nocturia (principal); R35.0 Frequency of micturition
CPT/HCPCS: 99204

== ENCOUNTER → 2023-10-06 10:49 | Outpatient (BNVA) | payer OTHER, SELFPAY | PROVIDERS: PCP Internal Medicine; Visit Provider Nurse Practitioner Family | DX: N40.1 Benign prostatic hyperplasia with lower urinary tract symptoms (principal); R30.0 Dysuria; R35.1 Nocturia; R35.0 Frequency of micturition; R06.83 Snoring | CPT/HCPCS: 81003; 99202 ==

== ENCOUNTER 2023-11-08 07:28 | Outpatient (AMB) | payer OTHER, SELFPAY ==
--- NOTE | 2023-11-08 07:31 | A.OFFPC_ITS ---
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 Officer Required: No Accompanied by: Self / Same As Patient Allergies No Known Allergies [No Known Allergies*] Allergy (Verified 11/08/23 07:37) Medication List - Last Reconciled 11/08/23 by Rashmi Rivera MD sumatriptan succinate 100 mg PO Q2-4H PRN 30 days tamsulosin 0.4 mg PO BEDTIME 30 days Tobacco use date assessed: 11/08/23 Dental Screening Dental Screen Date: 11/08/23 Did you have a dental visit in the last 12 months?: No Did you have a dental problem in the last 6 months where you did not have access to dental care?: No Was dental information given to patient?: Patient has dentist HPI HPI Comments History of Present Illness Details This is a 38-year-old male that comes for his physical exam. Has mild major depression and I will start him on amitriptyline at bedtime which also will help for migraine prophylaxis. No family history of colon cancer. No chest pain or shortness on breath. [facility] Medical History Encounter for physical examination Family history of hypertension Migraines Surgical History No history of previous surgery Family History (Updated 11/08/23 @ 07:41 by Rashmi Rivera MD) Mother Hypertension Diabetes mellitus Father Hypertension CAD (coronary artery disease) Diabetes mellitus Social History (Updated 11/08/23 @ 07:42 by Rashmi Rivera MD) Housing: House Alcohol intake: current Alcohol intake frequency: holidays/special occasions only Alcohol type: beer Patient Tobacco Use Status: Current someday Tobacco user Tobacco use type: Cigarette Cigarettes Per Day: 1 e-Cigarette/Vaping Use: Never Used Second Hand Smoke Exposure: Yes service: No Current occupational status: employed Current occupational exposures/hazards: No Cognitive needs: No Hearing needs: No Vision needs: No Questionnaire PHQ-9 Over the last 2 weeks, how often have you been bothered by any of the following problems? 1. Little interest or pleasure in doing things: several days 2. Feeling down, depressed, or hopeless: several days 3. Trouble falling or staying asleep, or sleeping too much: more than half the days 4. Feeling tired or having little energy: several days 5. Poor appetite or overeating: several days 6. Feeling bad about yourself - or that you are a failure or have let yourself or your family down: not at all 7. Trouble concentrating on things, such as reading the newspaper or watching television: not at all 8. Moving or speaking so slowly that other people could have noticed. Or the opposite - being so fidgety or restless that you have been moving around a lot more than usual: several days 9. Thoughts that you would be better off or of hurting yourself in some way: not at all Total score: 7 Depression Screening Interpretation: Positive Depression Screening Follow-up: Existing condition, New Medication prescribed and Follow-up Visit Requested Depression Screening Done: Yes 41006 - PHQ-9 Billing: Yes Source: Developed by Drs. Davidson Kingston, Amy Gerber, Jesus Salcido and colleagues, with an educational steve from [employer]. Thrive Questionnaire Date Thrive assessed: 11/08/23 I am a: Patient What is your living situation today?: I have a steady place to live Within the past 12 months, did the food you bought not last and you didn't have the money to get more?: Never true Within the past 12 months, did you worry whether your food would run out before you got money to buy more?: Never true Do you have trouble paying for medicines?: No Do you have trouble getting transportation to medical appointments?: No Do you have trouble paying your heating and electricity bill?: No Do you have trouble taking care of your child, family member or friend?: No Do you have trouble with day-to-day activities such as bathing, preparing meals, shopping, managing finances, etc.?: No Are you currently unemployed and looking for a job?: No Are you interested in more education?: No Please select the resources that you would like help with: None Currently or been in a relationship where the following occur: no concerns reported THRIVE Score: 0 AUDIT C Alcohol Use Questionnaire (AUDIT-C) 1. How often do you have a drink containing alcohol?: Monthly or less 2. How many drinks containing alcohol do you have on a typical day when you are drinking?: 1 or 2 3. How often do you have six or more drinks on one occasion?: Never Total Score: 1 Score Reviewed/Action Taken: No KATE-7 AMB Questionnaire KATE-7 Date KATE - 7 assessed: 11/08/23 Feeling nervous, anxious, or on edge: 1 = Several days Not being able to stop or control worryin = Not at all Worrying too much about different things: 0 = Not at all Trouble relaxin = Not at all Being so restless that it is hard to sit still: 0 = Not at all Becoming easily annoyed or irritable: 1 = Several days Feeling afraid as if something awful might happen: 0 = Not at all Total KATE-7 score (0-4 normal; 5-9 mild; 10-14 moderate; 15-21 severe): 2 Source: Developed by Drs. Davidson Kingston, Amy Gerber, Jesus Salcido and colleagues, with an educational steve from [employer]. KATE-7 Assessment Billing KATE-7 Assessment Tool: KATE-7 Assessment 19818 Review of Systems Const All systems reviewed & are unremarkable except as noted in HPI and below Card Denies chest pain at rest, Denies chest pain with activity, Denies edema, Denies irregular heart rhythm, Denies claudication, Denies dyspnea, Denies dyspnea on exertion, Denies orthopnea, Denies paroxysmal nocturnal dyspnea and Denies slow heart rate Resp Denies cough, Denies dyspnea and Denies dyspnea on exertion GI Denies abdominal pain, Denies change in bowel habits, Denies excessive flatus, Denies nausea and Denies vomiting Denies urinary hesitancy, Denies urinary incontinence and Denies urinary urgency Physical exam (Primary Care) BMI result Body Mass Index 20.8 Tobacco/Smoking Status: Tobacco use Status Tobacco use date assessed 11/08/23 11/08/23 07:37 Patient Tobacco Use Status Current someday Tobacco 11/08/23 07:37 Tobacco use type Cigarette 11/08/23 07:37 e-Cigarette/Vaping Use Never Used 11/08/23 07:37 Are you ready to quit: No Tobacco cessation counseling provided: Yes Items discussed: QuitWorks Relapse Prevention: discussed the importance of a supportive environment, discussed negative mood or depression after quitting, weight gain after smoking is common and discussed dietary, exercise and/or lifestyle changes Number of minutes spent counselin CPT code: Less than 3 minutes PHQ-9: PHQ-9 Score PHQ-9: Total score 7 11/08/23 07:37 Depression Screening Interpretation: Positive Depression Screening Follow-up: Existing condition, New Medication prescribed and Follow-up Visit Requested Thrive Assessment: Date of Thrive Assessment Date Thrive assessed 11/08/23 11/08/23 07:37 Currently or been in a relationship where the following occur: no concerns reported Const Orientation/consciousness: patient oriented x3 HENMT Head: Yes normal to inspection, Yes normocephalic and Yes atraumatic Ears: external ears normal Eyes General: appearance normal, both eyes and all related structures Eyelids: Yes eyelids normal Conjunctivae: conjunctivae normal Neck Neck: Yes normal visual inspection and Yes supple Resp Effort & Inspection: normal respiratory effort Auscultation: clear to auscultation bilaterally Cardio Jugular venous distension: no JVD Rate: regular rate Rhythm: regular rhythm Heart sounds: S1 normal heart sound present and S2 normal heart sound present GI Inspection: Yes normal to inspection Palpation (GI): Soft to palpation and nontender Auscultation: normal bowel sounds Skin General skin exam: no rashes or lesions noted Neuro General: patient oriented x3 and no focal motor deficits Extrem General: Yes full ROM Psych Appearance: grossly normal Assessment and Plan Assessment & Plan (1) Encounter for physical examination: Code(s): Z00.00 - Encounter for general adult medical examination without abnormal findings Plan: Repeat in a year. (2) Mild major depression: Code(s): F32.0 - Major depressive disorder, single episode, mild Plan: Start amitriptyline. Orders: Orders ECG 12 lead EKG Today E78.00 - Pure hypercholesterolemia, unspecified Lipid Panel Today E78.5 - Hyperlipidemia, unspecified Comprehensive Met. Panel Today Z00.00 - Encounter for general adult medical examination without abnormal findings Referrals Pain Management Referral M54.50 - Low back pain, unspecified Neurology Referral G43.109 - Migraine with aura, not intractable, without status migrainosus Medications: New amitriptyline 25 mg PO BEDTIME 90 days 90 tabs 1RF F32.0 - Major depressive disorder, single episode, mild Coding Level of Care Code Est Pt Prev Care 18-39y(75272) Diagnoses Encounter for physical examination Z00.00 Mild major depression F32.0 Additional Codes KATE-7 Assessment Billing - KATE-7 Assessment Tool: KATE-7 Assessment 94685 ([id number]) Time Spent (min) 31
[2023-11-08 07:32] VITALS: BP 118/80; BMI 20.8
== END 2023-11-08 07:52 | disposition home or self-care (01) ==
PROVIDERS: PCP Internal Medicine; Visit Provider Internal Medicine
DX: Z00.00 Encounter for general adult medical examination without abnormal findings (principal); F33.0 Major depressive disorder, recurrent, mild; F17.210 Nicotine dependence, cigarettes, uncomplicated
CPT/HCPCS: 96127; 99395

== ENCOUNTER → 2023-11-18 08:44 | Outpatient (REF) | payer OTHER, SELFPAY | LOC: HO.SL 08:44 | PROVIDERS: PCP Internal Medicine; Visit Provider Nurse Practitioner Family | DX: R35.1 Nocturia (principal); R53.83 Other fatigue; R06.83 Snoring | CPT/HCPCS: 95806 ==

== ENCOUNTER → 2023-11-18 09:09 | Outpatient (BNV) | payer OTHER, SELFPAY | PROVIDERS: PCP Internal Medicine; Visit Provider Psychiatry & Neurology Neurology | DX: R06.83 Snoring (principal) | CPT/HCPCS: 95806 ==

== ENCOUNTER 2023-11-19 10:14 | Outpatient (AMB) | payer OTHER, SELFPAY ==
--- NOTE | 2023-11-19 10:20 | MHC.OFFVIS ---
Vital Signs 11/19/23 10:23 Height 5 ft 9 in Weight 142 lb 6 oz BMI 21.0 BP 119/83 Blood Pressure Location Rt brachial Position Sitting Pulse 113 H Pulse Source Pulse Oximeter Pulse Oximetry (%) 100 Oxygen Delivery Method Room Air Intake Visit Reasons: low back pain Intake Note: Pain today 810 Photocomposition Keyboard Operator Required: Yes Photocomposition Keyboard Operator Language: Boiler Washer Name: Sachin #[id number] Allergies No Known Allergies [No Known Allergies*] Allergy (Verified 11/19/23 10:24) HPI HPI low back pain : Details: Patient is a pleasant 38 years old [place] speaking male with history of migraines and depression, presents today for initial evaluation for low back pain with left-sided radicular symptoms. 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 Patient reports his back pain has been worsening with any heavy lifting, pulling, twisting or bending. He has tried Tylenol, NSAIDs, and [id number] topical applications with continued symptoms. Back pain is axial and also radiates to his left mid back in the left lower back, into his left sacral in the left lateral hip with radiation into his left anterior and lateral lower leg with numbness, tingling and cramping in his lateral tabares and toes. Patient reports left leg heaviness and paresthesias with prolonged walking or bending. Denies any previous finds injections or surgery. Pain affects his daily activities, functioning, sleep, and social interactions. Pain is rated at 8/10, constant and is worse in the mornings and evenings. Denies any fever, abdominal or groin pain, foot drop, weakness, bladder or bowel dysfunction or saddle anesthesia. Oswestry low back disability score=25 (severe disability) Location: Lower back radiates into left SIJ and LLE laterally and anteriorly Duration: Over one year after work related injury due to heavy lifting and pulling Characteristics of symptom or complaint: Radiating, dull, stabbing, tightness, sharp, numb, tingling, spasming Aggravating or associated factors: Movements, walking, bending, laying, heavy lifting, twisting, pulling Relieving factors: Walking, resting in curled up position, Tylenol, ice/heat, OTC topicals Treatment: PT in 2022 at [facility] Medical History Encounter for physical examination Family history of hypertension Migraines Surgical History No history of previous surgery Family History Mother Hypertension Diabetes mellitus Father Hypertension CAD (coronary artery disease) Diabetes mellitus Social History Housing: House Alcohol intake: current Alcohol intake frequency: a few times a week Alcohol type: beer Patient Tobacco Use Status: Current everyday Tobacco user Tobacco use type: Cigarette Cigarettes Per Day: 5 e-Cigarette/Vaping Use: Never Used Second Hand Smoke Exposure: Yes service: No Current occupational status: employed Current occupational exposures/hazards: No Cognitive needs: No Hearing needs: No Vision needs: No Review of Systems Const All systems reviewed & are unremarkable except as noted in HPI and below Physical Exam Vital Signs: Last Vital Signs Pulse 113 H 11/19/23 10:23 BP 119/83 11/19/23 10:23 Pulse Ox 100 11/19/23 10:23 Oxygen Delivery Method Room Air 11/19/23 10:23 BMI result Body Mass Index 21.0 General: Appears afebrile. Alert and oriented. Mood and affect appropriate. Follows and participates in conversation appropriately. Respiratory effort is unlabored. No cough. Able to transition from sit to stand unassisted. Ambulates with bilaterally normal heel strike and toe off. General: Yes no CVA tenderness Back/Spine/Pelvis Other: Patient is able to walk and stand on heels and tip toes with no difficulties demonstrating good motor tone. No limping. Can flex forward to 70-75 degrees and extend to 5-10 degrees before experiencing lumbar pain. Demonstrates 5/5 strength of quadriceps bilaterally as well as flexion/dorsiflexion of bilateral feet against resistance. 2+ pedal pulses bilaterally. Straight leg rise with dorsiflexion positive on the left. +2 patellar and achilles reflexes bilaterally. Facet loading test positive bilaterally. Shana sign, Long?s, [place], Pelvic compression and Stinchfield tests are positive bilaterally, worse on the left. No groin pain with I/E hip rotations. Significant paraspinals tenderness left side, mid and lower back. Valsalva maneuver negative. Back: no CVA tenderness Cervical Spine: normal cervical lordosis, cervical ROM normal, cervical muscular tenderness and No Cervical spine tenderness Thoracic/Lumbar Spine: thoracic and lumbar spine normal to inspection, Thoracic/lumbar spine scar(s), Lasegue's sign positive on the left and localized, pain with thoraco-lumbar ROM, paraspinal muscle tenderness on the left in the lower thoracic, in the upper thoracic and in the mid lumbar, thoraco-lumbar spasm on the left, No thoracic spinal tenderness and lumbar spinal tenderness (L3-S1) Pelvis: buttock tenderness on the left Sacroiliac joints: bilaterally tender to palpation Extrem General: Yes capillary refill normal, Yes no clubbing, cyanosis or edema and Yes no calf tenderness Quality Reporting (2019) Adult ([facility] 138/07/29/68) Smoking risk assessment performed?: Yes Patient Tobacco Use Status: Current someday Tobacco user Results Reviewed Results Reviewed: XR LUMBOSACRAL SPINE 05/28/23 CLINICAL INFORMATION: Low back pain. COMPARISON: 05/27/2022 FINDINGS: There are five segmented vertebra of the lumbar spine. The lumbar vertebra have normal height and alignment. The disc spaces are maintained. 5 degrees of dextrocurvature is measured from the superior endplate of T12 to the inferior plate of L4. Sacrum and sacroiliac joints are normal. Soft tissues are unremarkable. No specific source of pain is identified. IMPRESSION: No evidence of degenerative disc disease, fracture or malalignment. There are no significant radiographic findings within the lumbar spine. Assessment & Plan Assessment & Plan (1) Sacroiliac joint pain: Code(s): M53.3 - Sacrococcygeal disorders, not elsewhere classified Category: Medical (2) Thoracic degenerative disc disease: Code(s): M51.34 - Other intervertebral disc degeneration, thoracic region Category: Medical (3) Muscle spasm: Code(s): M62.838 - Other muscle spasm Category: Medical (4) Lumbosacral spondylosis: Code(s): M47.817 - Spondylosis without myelopathy or radiculopathy, lumbosacral region Category: Medical (5) Low back pain: Code(s): M54.50 - Low back pain, unspecified Category: Medical (6) Lumbar back pain with radiculopathy affecting left lower extremity: Code(s): M54.16 - Radiculopathy, lumbar region Category: Medical Plan Thoracic spine and sacral iliac joint x-rays to assess degree of arthritis and degenerative changes in these areas. Patient presents with left-sided radiculopathy and SI joint pain with significant paraspinal muscle tenderness on the left mid and lower back. Patient's back pain and left leg heaviness with parasthesias are function and mobility limiting and has been resistant to conservative treatments. Will also obtain MRI of the lumbar spine to assess for neural integrity and compression, to rule out disc herniation. Script provided for tizanidine and lidocaine patches. Side effects and precautions were discussed with patient. Patient is encouraged daily physical activity, adequate hydration, good posture, proper body mechanics when lifting, decreased caffeine consumption (5 cups/day) and avoid pain producing activities. All questions and concerns have been answered and patient agreed with the treatment plan. Follow-up for x-rays/MRI results and sooner as needed. Orders: Orders XR thoracic spine 3V Today M51.34 - Other intervertebral disc degeneration, thoracic region XR sacroiliac joint min 3V Today M53.3 - Sacrococcygeal disorders, not elsewhere classified MR lumbar spine wo con Today M47.817 - Spondylosis without myelopathy or radiculopathy, lumbosacral region, M54.16 - Radiculopathy, lumbar region Medications: New tizanidine 2 mg PO BID 30 days PRN 60 tabs 0RF muscle spasm M47.817 - Spondylosis without myelopathy or radiculopathy, lumbosacral region, M62.838 - Other muscle spasm lidocaine 5% 1 patch topically; 30 ea 0RF pain M47.817 - Spondylosis without myelopathy or radiculopathy, lumbosacral region, M54.50 - Low back pain, unspecified Coding Level of Care Code New Pt Level 4 (69373) Diagnoses Sacroiliac joint pain M53.3 Thoracic degenerative disc disease M51.34 Muscle spasm M62.838 Lumbosacral spondylosis M47.817 Low back pain M54.50 Lumbar back pain with radiculopathy affecting left lower extremity M54.16
[2023-11-19 10:23] VITALS: BP 119/83; PULSE 113; O2SAT 100; BMI 21.0
== END 2023-11-19 11:10 | disposition home or self-care (01) ==
PROVIDERS: PCP Internal Medicine; Visit Provider Nurse Practitioner Family
DX: M53.3 Sacrococcygeal disorders, not elsewhere classified (principal); M51.34 Other intervertebral disc degeneration, thoracic region; M62.838 Other muscle spasm; M47.817 Spondylosis without myelopathy or radiculopathy, lumbosacral region; M54.50 Low back pain, unspecified; M54.16 Radiculopathy, lumbar region
CPT/HCPCS: 99204

== ENCOUNTER 2023-11-19 10:14 | Outpatient (REF) | payer OTHER, SELFPAY ==
--- NOTE | ~2023-11-19 | XR_ITS ---
EXAMINATION: XR SACROILIAC JOINTS CLINICAL INFORMATION: Sacrococcygeal disorders COMPARISON: CT scan the abdomen and pelvis July 2023 TECHNIQUE: 3 views of the sacroiliac joints FINDINGS: soft tissues are normal. No fracture. Alignment is anatomic. Sacroiliac joint spaces are well-maintained without erosions or surrounding sclerosis. Circular appearing sclerosis in the left femoral neck likely related to the femoral necks cyst measuring approximately 1 cm. This is unchanged compared with recent CT XR/XR sacroiliac joint min 3V IMPRESSION: 1. Normal sacroiliac joints. 2. Stable benign-appearing sclerosis in the left femoral neck likely related to the femoral neck cyst better characterized on recent CT.
--- NOTE | ~2023-11-19 | XR_ITS ---
EXAMINATION: XR THORACIC SPINE CLINICAL INFORMATION: Back pain COMPARISON: None available. TECHNIQUE: 3 views of the thoracic spine were obtained. FINDINGS: There is no fracture or bone destruction seen and the vertebral alignment is normal. There is no disc space narrowing. There is no abnormality of the paraspinal soft tissues. XR/XR thoracic spine 3V IMPRESSION: Unremarkable examination.
--- NOTE | 2023-11-19 11:25 | ECG_ITS ---
Test Reason : hypercholesterolemia Blood Pressure : / mmHG Vent. Rate : 087 BPM Atrial Rate : 087 BPM P-R Int : 122 ms QRS Dur : 086 ms QT Int : 336 ms P-R-T Axes : 074 050 057 degrees QTc Int : 404 ms Normal sinus rhythm Minimal voltage criteria for LVH, may be normal variant ( Sokolow-Ortiz ) Borderline ECG When compared with ECG of 31-DEC-2021 15:12, No significant change was found Referred By: Rashmi Rivera Electronically Signed By:DESHAUN PARIKH
[2023-11-19 12:23] LABS: Alanine Aminotransferase 15 U/L (0-40); Albumin Level 4.7 g/dL (3.5-5.0); Alkaline Phosphatase 68 U/L (39-117); Anion Gap 12 (12-20); Aspartate Amino Transferase 21 U/L (5-37); Bilirubin Total 0.7 mg/dL (0.0-1.0); Blood Urea Nitrogen 10 mg/dL (9-16); Calcium 9.1 mg/dL (8.4-10.2); Carbon Dioxide 23 mmol/L (22-29); Chloride 109 mmol/L (96-108); Cholesterol 185 mg/dL (<200); Estimated Glomerular Filt Rate > 60; Glucose Random 98 mg/dL (60-115); HDL Cholesterol 38 mg/dL (>40); LDL Cholesterol Calculated 131 mg/dL (<100); Potassium 3.8 mmol/L (3.3-5.1); Sodium 140 mmol/L (135-145); Total Protein 7.2 g/dL (6.5-8.0); Triglycerides 84 mg/dL (<150)
== END 2023-11-19 10:15 | disposition home or self-care (01) ==
LOC: HO.XRAY 10:14
PROVIDERS: Absent Provider Internal Medicine; PCP Internal Medicine; Visit Provider Nurse Practitioner Family
DX: Z00.00 Encounter for general adult medical examination without abnormal findings (principal); E78.00 Pure hypercholesterolemia, unspecified; E78.5 Hyperlipidemia, unspecified; M51.34 Other intervertebral disc degeneration, thoracic region; M53.3 Sacrococcygeal disorders, not elsewhere classified
CPT/HCPCS: 36415; 72072; 72202; 80053; 80061; 93005; 99202

== ENCOUNTER → 2023-11-19 11:25 | Outpatient (BNV) | payer OTHER, SELFPAY | PROVIDERS: Absent Provider Internal Medicine; PCP Internal Medicine; Visit Provider Internal Medicine | DX: E78.00 Pure hypercholesterolemia, unspecified (principal) | CPT/HCPCS: 93010 ==

== ENCOUNTER 2023-12-06 08:30 | Outpatient (AMB) | payer OTHER, SELFPAY ==
--- NOTE | 2023-12-06 08:33 | A.OFFVIS_ITS ---
Intake Visit Reasons: 8w/PVR Intake Note: Patient presents for follow up visit on: dysuria and renal cyst Urology Medications: Tamsulosin Blood Thinner: none PVR: 16ml's Want Ad Receiver Required: Yes Want Ad Receiver Name: [id number] Lynn Accompanied by: Self / Same As Patient Allergies No Known Allergies [No Known Allergies*] Allergy (Verified 12/06/23 20:35) Medication List - Last Reconciled 12/06/23 by LAKEISHA JacobsonP- amitriptyline 25 mg PO BEDTIME 90 days lidocaine 5% 1 patch topically; sumatriptan succinate 100 mg PO Q2-4H PRN 30 days terazosin 5 mg PO BEDTIME 30 days tizanidine 2 mg PO BID PRN 30 days HPI Comments Details: Brijesh is a very pleasant 38-year-old Turkish-speaking male patient of Dr. Price. He has a past medical history of migraines. He presents to the office today for follow-up. Of note, patient was seen approximately 2 months ago as a new patient for ongoing lower urinary tract symptoms and renal cyst at which time the patient was started on Flomax and referral was made for sleep study as patient was reporting increased episodes of nocturia up to 8-20 times per night. In review of patient's chart it appears sleep study was ordered and performed. Sleep study results reviewed with the patient today. Sleep study noted no sleep apnea. However, moderate/severe snoring was noted. He reports noting episodes of nocturia decrease to approximately 5 times per night however feels Flomax caused him to have a penile rash. He reports this rash has since subsided as he stopped taking the medication due to this rash. Previous workup has included a CT urogram that noted bilateral kidneys are normal in size, shape, and attenuation. No hydronephrosis, hydroureter, or calculi seen. At the interpolar aspect of the left kidney a 9 mm benign simple cyst is seen which requires no imaging follow-up per radiology report. The bladder is unremarkable. In review of patient's chart it appears there was also a bladder ultrasound ordered for dysuria and these results were reviewed with the patient today. The bladder is well distended and normal. Bilateral ureteral jets are demonstrated. Pre void bladder volume is approximately 400 mL. Postvoid bladder volume is approximately 5 mL. Prostate volume is approximately 22 mL. Unremarkable bladder ultrasound. When asked he denies urinary urgency, incontinence, hematuria, dysuria, foul smelling urine, changes to urinary stream, flank pain, fever, and or chills. Discussed at length potential causes for urinary frequency and nocturia. In office urinalysis results reviewed with the patient today. PVR 16 mL. Discussed possible near future in office cystoscopy for further assessment evaluation. [facility] Medical History Encounter for physical examination Family history of hypertension Migraines Surgical History No history of previous surgery Family History Mother Hypertension Diabetes mellitus Father Hypertension CAD (coronary artery disease) Diabetes mellitus Social History Housing: House Alcohol intake: current Alcohol intake frequency: a few times a week Alcohol type: beer Patient Tobacco Use Status: Current everyday Tobacco user Tobacco use type: Cigarette Cigarettes Per Day: 5 e-Cigarette/Vaping Use: Never Used Second Hand Smoke Exposure: Yes service: No Current occupational status: employed Current occupational exposures/hazards: No Cognitive needs: No Hearing needs: No Vision needs: No Review of Systems Const All systems reviewed & are unremarkable except as noted in HPI and below Reports no additional complaints Eyes Reports no additional complaints ENT Reports no additional complaints Card Reports no additional complaints Resp Reports no additional complaints GI Reports no additional complaints Reports as per HPI Musc Reports no additional complaints Neuro Reports as per HPI Psych Reports no additional complaints Endo Reports no additional complaints Ezra/Lymph Reports no additional complaints Aller/Immun Reports no additional complaints Physical Exam Const General: cooperative, healthy appearing, comfortable, no acute distress, well developed, alert and awake Orientation/consciousness: patient oriented x3 Limitations: no limitations HEENT Head: Yes normal to inspection, Yes normocephalic and Yes atraumatic Ears: hearing grossly normal bilaterally Eyes General: appearance normal, both eyes and all related structures Neck Neck: Yes normal visual inspection and Yes trachea midline Chest Chest palpation & inspection: normal inspection of the chest Resp Effort & Inspection: normal respiratory effort and able to speak in complete sentences Cardio Rate: regular rate GI Inspection: Yes normal to inspection General: Yes no CVA tenderness Back/Spine/Pelvis Back: no CVA tenderness Skin General skin exam: no rashes or lesions noted Neuro General: patient oriented x3 Extrem General: Yes normal to inspection Psych Appearance: grossly normal and well kempt Mental Status: mental status grossly normal Speech and movement: Normal speech and movement present and Clear speech present Affect: normal affect Attitude: cooperative Thought process: Normal thought process present Thought content: Normal thought content present Insight: Fair insight present (Psych) Judgement: Fair judgement present (Psych) Office Procedures Post Void Residual Post Residual Void Post Void Residual (PVR): 16 [id number] Void Residual by ultrasound Results AMB Urinalysis, Automated UA Leukoctes 0 Edwin/uL Last Edit by [employer] on 12/06/23 08:45 UA Nitrite Negative Last Edit by [employer] on 12/06/23 08:45 UA Urobilinogen 0.2 mg/dL Last Edit by [employer] on 12/06/23 08:45 UA Protein 0 mg/dL Last Edit by [employer] on 12/06/23 08:45 UA pH 6.0 Last Edit by [employer] on 12/06/23 08:45 UA Blood 0 Ed/uL Last Edit by [employer] on 12/06/23 08:45 UA Specific [place] 1.015 Last Edit by [employer] on 12/06/23 08:45 UA Ketone Negative Last Edit by [employer] on 12/06/23 08:45 UA Bilirubin 0 mg/dL Last Edit by [employer] on 12/06/23 08:45 UA Glucose 0 mg/dL Last Edit by [employer] on 12/06/23 08:45 Quality Reporting (2019) Adult ([facility] 138/07/29/68) Smoking risk assessment performed?: Yes Patient Tobacco Use Status: Current everyday Tobacco user Results Reviewed Results Reviewed: Laboratory Last Values Urine pH (Auto) 6.0 12/06/23 08:36 Specific [place] (Auto) 1.015 12/06/23 08:36 Urine Protein (Auto) 0 mg/dL 12/06/23 08:36 Glucose (UA)(Auto) 0 mg/dL 12/06/23 08:36 Urine Ketones (Auto) Negative 12/06/23 08:36 Urine Blood (Auto) 0 Ed/uL 12/06/23 08:36 Urine Nitrite (Auto) Negative 12/06/23 08:36 Urine Bilirubin (Auto) 0 mg/dL 12/06/23 08:36 Urine Urobilinogen (Auto) 0.2 mg/dL 12/06/23 08:36 Leukocyte Esterase (Auto) 0 Edwin/uL 12/06/23 08:36 Assessment & Plan Assessment & Plan (1) Nocturia: Code(s): R35.1 - Nocturia Category: Medical (2) Urinary frequency: Code(s): R35.0 - Frequency of micturition Category: Medical Plan In office urinalysis results reviewed with the patient today; as noted above. PVR 16 mL. Stop Flomax. Start terazosin 5 mg at bedtime as discussed and prescribed. Sleep study results reviewed with the patient today; as noted above. Discussed possible near future in office cystoscopy for further assessment evaluation if symptoms persist and/or worsen. Discussed lifestyle modifications to assist with increased episodes of nocturia such as limiting fluids 2-3 hours prior to bed. Follow-up in 1-3 months weeks with PVR; or sooner with any issues, concerns, and or questions. Orders: Orders AMB Urinalysis Automated Today Z13.9 - Encounter for screening, unspecified AMB Post Void Residual by ultrasound Today R35.0 - Frequency of micturition Medications: New terazosin 5 mg PO BEDTIME 30 days 30 caps 3RF N40.1 - Benign prostatic hyperplasia with lower urinary tract symptoms, R35.0 - Frequency of micturition Discontinued tamsulosin Discontinued Reason: Doctor's Order 0.4 mg PO BEDTIME 30 days 30 caps 1RF N40.1 - Benign prostatic hyperplasia with lower urinary tract symptoms, R35.1 - Nocturia Patient Instructions: The patient had an opportunity to ask questions regarding the treatment plan. All questions were answered. Physical exam, labs, and imaging were discussed and reviewed in detail. As well as risks, benefits, and discussion of treatment choices. No major barriers to understanding were identified. The patient expressed understanding and agreement with the above treatment plan. The patient was made aware they should contact our office by phone for worsening of their current condition, the appearance of new symptoms, or with any questions or concerns. Compliance is encouraged with any medications and follow up testing that is ordered. It is a privilege to be allowed the opportunity to participate in? your urological care.? Again, if you have any questions or concerns If you have any questions or concerns please do not hesitate to contact me. The office is [phone]. This note is constructed using voice recognition software. While every effort has been made to ensure accuracy grinding room inspector errors may have been included. Yours sincerely, BHAVANA Jacobson Coding Level of Care Code Est Pt Level 4 (94516) Diagnoses Nocturia R35.1 Urinary frequency R35.0 CPT Codes Post Residual Void - PVR CPT Code: 48291-Xnnl Void Residual by ultrasound ([id number])
== END 2023-12-06 09:10 | disposition home or self-care (01) ==
PROVIDERS: PCP Internal Medicine; Visit Provider Nurse Practitioner Family
DX: R35.1 Nocturia (principal); R35.0 Frequency of micturition; Z13.9 Encounter for screening, unspecified
CPT/HCPCS: 99214

== ENCOUNTER → 2023-12-06 08:30 | Outpatient (BNVA) | payer OTHER, SELFPAY | PROVIDERS: PCP Internal Medicine; Visit Provider Nurse Practitioner Family | DX: N40.1 Benign prostatic hyperplasia with lower urinary tract symptoms (principal); R35.1 Nocturia; R35.0 Frequency of micturition; N28.1 Cyst of kidney, acquired | CPT/HCPCS: 51798; 81003; 99212 ==

== ENCOUNTER 2023-12-19 20:10 | Emergency (ER) | payer OTHER, SELFPAY ==
[2023-12-19 20:24] VITALS: BP 112/75; PULSE 95; RESP 18; TEMP 36.9; O2SAT 98; BMI 20.3
--- NOTE | 2023-12-19 23:13 | ED_ITS ---
HPI - Back Pain/Injury General Chief Complaint: Back Pain/Injury Stated Complaint: back pain radiating down legs/numb Time Seen by Provider: 12/19/23 22:59 Source: patient Mode of arrival: ambulatory Limitations: no limitations History of Present Illness ED Provider: Dr. Lianet Akbar HPI Narrative: Patient comes to the emergency room complaining of lower back pain radiating towards the left leg. Patient states that this has been going on for several weeks, patient takes tizanidine which was prescribed by his PCP. Patient denies any urinary/fecal incontinence/retention. Patient states that his primary care physician wanted him to get an MRI. However, patient's insurance denied payment for this. Patient states that about a year ago he had an injury in his back, had physical therapy for similar symptoms. Patient denies any recent trauma or falls. Related Data Previous Rx's ?Medication ?Instructions ?Recorded sumatriptan succinate 100 mg tablet 100 mg PO Q2-4H PRN migraine 07/31/23 headache 30 days #9 tabs amitriptyline 25 mg tablet 25 mg PO BEDTIME 90 days #90 tabs 11/08/23 lidocaine 5 % topical patch 1 patch topical .COMPLEX pain #30 11/19/23 ea terazosin 5 mg capsule 5 mg PO BEDTIME 30 days #30 caps 12/06/23 tizanidine 2 mg tablet 2 mg PO BID PRN for muscle spasm 12/17/23 #60 tabs ketorolac 10 mg tablet 10 mg PO .B.i.d. PRN pain #10 tabs 12/19/23 Allergies Allergy/AdvReac Type Severity Reaction Status Date / Time No Known Allergies Allergy Verified 12/19/23 20:30 [No Known Allergies*] Review of Systems Review of Systems: Constitutional : No Weight loss, No Fever, No Chills, No Night Sweats, No Fatigue, No Malaise ENT/Mouth : No Hearing loss, No Ear Pain, No Nasal Congestion, No Sinus Pain, No Hoarseness, No sore throat, No Rhinorrhea, No Swallowing Difficulty Eyes: No Eye Pain, No Swelling, No Redness, No Foreign Body, No Discharge, No Vision Changes Cardiovascular : No Chest Pain, No SOB, No Dyspnea on Exertion, No Orthopnea, No Edema, No Palpitations Respiratory : No Cough, No Sputum, No Wheezing, No Smoke Exposure, No Dyspnea Gastrointestinal : No Nausea, No Vomiting, No Diarrhea, No Constipation, No abdominal Pain, No Hematochezia, No Melena Genitourinary : no irregular bleeding, No Dysuria, No Urinary Frequency, No Hematuria, No Urinary Incontinence, No Urgency, No Flank Pain, No Urinary Flow Changes, No Hesitancy Musculoskeletal : Complaining of lower back pain radiating towards his left lower extremity Skin : No Skin Lesions, No rash Neuro : No Weakness, No Numbness, No Paresthesias, No Loss of Consciousness, No Dizziness, No Headache Psych : No Anxiety/Panic, No Depression, No SI/HI/AH/VH, No Social Issues, Heme/Lymph: No Bruising, No Bleeding,No Lymphadenopathy Endocrine : No Polyuria, No Polydipsia, No Temperature Intolerance [facility] Past Medical History Medical History Encounter for physical examination Family history of hypertension Migraines Surgical History No history of previous surgery Family History Family History Mother Hypertension Diabetes mellitus Father Hypertension CAD (coronary artery disease) Diabetes mellitus Social History Social History Housing: House Alcohol intake: current Alcohol intake frequency: a few times a week Alcohol type: beer Patient Tobacco Use Status: Current everyday Tobacco user Tobacco use type: Cigarette Cigarettes Per Day: 5 e-Cigarette/Vaping Use: Never Used Second Hand Smoke Exposure: Yes Advance Directives: No Advance Directives Information Provided: No service: No Current occupational status: employed Current occupational exposures/hazards: No Cognitive needs: No Hearing needs: No Vision needs: No Physical Exam Vital Signs: Vital Signs: Last Vital Signs Temp 98.5 F 12/19/23 20:24 Pulse 95 12/19/23 20:24 Resp 18 12/19/23 20:24 BP 112/75 12/19/23 20:24 Pulse Ox 98 12/19/23 20:24 O2 Del Method Room Air 12/19/23 20:24 BMI result Body Mass Index 20.3 Const: Other: Appearance: Alert. Oriented X3. No acute distress. Eyes: Pupils equal, round and reactive to light. ENT: Pharynx normal. Neck: Normal inspection. Neck supple. No lymph nodes noted. No crepitus CVS: Normal heart rate and rhythm. Pulses normal. Normal S1 and S2 Respiratory: No respiratory distress. Breath sounds normal. No Wheezing. No rales Abdomen: Soft and nontender. No rigidity. No distention. Skin: Skin warm and dry. Normal skin color. Normal skin turgor. Back: Palpable spasms on the lower left side of the back, positive straight leg raise test on the left. Extremities: No lower extremity edema. No Lacerations. No Rash Neuro: Oriented X 3. No motor deficit. No sensory deficit. Moving all extremities. No slurred speech. CN 2 through 12 grossly intact Psych: calm, cooperative, normal affect Medical Decision Making Medical Decision Making MDM Narrative: -I discussed the physical exam with the patient, patient likely has sciatica versus herniated disc versus muscle spasms -patient received IM ketorolac and dexamethasone. Discussed with the patient that the mainstay of treatment will be physical therapy. It is possible that after the physical therapy, if his symptoms do not improve, the insurance may be more susceptible to pay for the MRI. Patient will follow-up with his primary care physician. At this time, there is no indication for emergent MRI. Differential Diagnosis Differential Diagnoses: The differential diagnosis associated with the presentation includes (As above) Discharge Plan Discharge Clinical Impression: Sciatica Patient Disposition: Home, Self-Care Instructions: Sciatica (ED), Lower Back Exercises (ED) Additional Instructions: Please follow-up with your primary care physician tomorrow. If you have any worsening or new symptoms, please return to the emergency room or call 911 Prescriptions: New ketorolac 10 mg tablet 10 mg PO .B.i.d. PRN (Reason: pain) Qty: 10 0RF Rx Instructions: Do not use this medication with ibuprofen, naproxen or any NSAIDs No Action sumatriptan succinate 100 mg tablet 100 mg PO Q2-4H PRN (Reason: migraine headache) 30 Days Qty: 9 1RF Rx Instructions: do not exceed 2 doses per 24 hrs tizanidine 2 mg tablet 2 mg PO BID PRN (Reason: for muscle spasm) Qty: 60 3RF amitriptyline 25 mg tablet 25 mg PO BEDTIME 90 Days Qty: 90 1RF terazosin 5 mg capsule 5 mg PO BEDTIME 30 Days Qty: 30 3RF lidocaine 5 % adhesive patch,medicated 1 patch topical .COMPLEX Qty: 30 0RF Rx Instructions: 1 patch topically; Print Language: Faroese
[2023-12-19] MEDS: Ketorolac Tromethamine 60 MG/2 ML VIAL IM (23:51)
[2023-12-19] MEDS: dexAMETHasone sod phosphate 4 MG/ML VIAL IM (23:51)
[2023-12-19 23:59] VITALS: BP 116/68; PULSE 82; RESP 16; TEMP 36.7; O2SAT 98
== END 2023-12-20 00:01 | disposition home or self-care (01) ==
PROVIDERS: Emergency Provider Emergency Medicine; PCP Internal Medicine
DX: M54.42 Lumbago with sciatica, left side (principal); F17.210 Nicotine dependence, cigarettes, uncomplicated; Z71.6 Tobacco abuse counseling
CPT/HCPCS: 96372; 99283; 99284; J1100; J1885

== ENCOUNTER 2023-12-21 12:45 | Outpatient (AMB) | payer OTHER, SELFPAY ==
[2023-12-21 13:03] VITALS: BP 110/78; BMI 20.2
--- NOTE | 2023-12-21 13:03 | MHC.PC.OV ---
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 PRN lidocaine 5% 1 patch topically; sumatriptan succinate 100 mg PO Q2-4H PRN 30 days terazosin 5 mg PO BEDTIME 30 days tizanidine 2 mg PO BID PRN Tobacco use date assessed: 11/08/23 Dental Screening Dental Screen Date: 11/08/23 HPI HPI Comments History of Present Illness Details This is a 38-year-old male that complains of thoracic pain that started about a week ago and is still present. He went to ER for this matter. I will change tizanidine 2 cyclobenzaprine at bedtime. 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 Denies any other acute complaint. No fever, bowel or bladder incontinence. [facility] Medical History Encounter for physical examination Family history of hypertension Migraines Surgical History No history of previous surgery Family History Mother Hypertension Diabetes mellitus Father Hypertension CAD (coronary artery disease) Diabetes mellitus Social History Housing: House Alcohol intake: current Alcohol intake frequency: a few times a week Alcohol type: beer Patient Tobacco Use Status: Current everyday Tobacco user Tobacco use type: Cigarette Cigarettes Per Day: 5 e-Cigarette/Vaping Use: Never Used Second Hand Smoke Exposure: Yes service: No Current occupational status: employed Current occupational exposures/hazards: No Cognitive needs: No Hearing needs: No Vision needs: No Questionnaire Thrive Questionnaire Date Thrive assessed: 11/08/23 KATE-7 AMB Questionnaire KATE-7 Date KATE - 7 assessed: 11/08/23 Source: Developed by Drs. Davidson Kingston, Amy Gerber, Jesus Salcido and colleagues, with an educational steve from [employer]. Review of Systems Const All systems reviewed & are unremarkable except as noted in HPI and below Card Denies chest pain at rest, Denies chest pain with activity, Denies edema, Denies irregular heart rhythm, Denies claudication, Denies dyspnea, Denies dyspnea on exertion, Denies orthopnea, Denies paroxysmal nocturnal dyspnea and Denies slow heart rate Resp Denies cough, Denies dyspnea and Denies dyspnea on exertion Musc Reports back pain Physical exam (Primary Care) Vital Signs: Last Vital Signs BP 110/78 12/21/23 13:03 BMI result Body Mass Index 20.2 Tobacco/Smoking Status: Tobacco use Status Tobacco use date assessed 11/08/23 12/21/23 13:07 Patient Tobacco Use Status Current everyday Tobacco 12/21/23 13:07 Tobacco use type Cigarette 12/21/23 13:07 e-Cigarette/Vaping Use Never Used 12/21/23 13:07 Thrive Assessment: Date of Thrive Assessment Date Thrive assessed 11/08/23 12/21/23 13:07 Resp Effort & Inspection: normal respiratory effort Auscultation: clear to auscultation bilaterally Cardio Jugular venous distension: no JVD Rate: regular rate Rhythm: regular rhythm Heart sounds: S1 normal heart sound present and S2 normal heart sound present Extrem General: Yes full ROM Assessment and Plan Assessment & Plan (1) Thoracic degenerative disc disease: Code(s): M51.34 - Other intervertebral disc degeneration, thoracic region Plan: Start cyclobenzaprine at bedtime. 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
== END 2023-12-21 13:32 | disposition home or self-care (01) ==
PROVIDERS: PCP Internal Medicine; Visit Provider Internal Medicine
DX: M51.34 Other intervertebral disc degeneration, thoracic region (principal)
CPT/HCPCS: 99213; G2211

== ENCOUNTER 2024-04-04 13:05 | Outpatient (AMB) | payer OTHER, SELFPAY ==
--- NOTE | 2024-04-04 13:12 | A.OFFVIS_ITS ---
Intake Visit Reasons: 2m/PVR Intake Note: Patient presents for follow up visit on: nocturia and frequency Urology Medications: Terazosin Blood Thinner: none PVR: 45ml's Side Panel Hanger Required: Yes Side Panel Hanger Services: Side Panel Hanger Present Side Panel Hanger Name: ADILSON JUSTICEELIS Accompanied by: Self / Same As Patient Allergies No Known Allergies [No Known Allergies*] Allergy (Verified 04/04/24 13:58) Medication List - Last Reconciled 04/04/24 by NEMESIO Jacobson- amitriptyline 25 mg PO BEDTIME 90 days cyclobenzaprine 10 mg PO BEDTIME 7 days ketorolac 10 mg PO .B.i.d. PRN lidocaine 5% 1 patch topically; sumatriptan succinate 100 mg PO Q2-4H PRN 30 days terazosin 5 mg PO BEDTIME 30 days HPI Comments Details: Brijesh is a very pleasant 38-year-old Japanese-speaking male patient of Dr. Price. He has a past medical history of migraines. He presents to the office today for follow-up. Of note, patient was seen approximately 2 months ago at which time Flomax was discontinued and patient was started on terazosin 5 mg at bedtime. In discussion with the patient today he reports somewhat improvement in episodes of nocturia with 5 mg of terazosin at bedtime. He reports symptoms of nocturia have decreased from 20 times per night to 8 times per night. Previous workup has included a home sleep study noted no sleep apnea. However, moderate/severe snoring was noted. CT urogram 07/31 that noted bilateral kidneys are normal in size, shape, and attenuation. No hydronephrosis, hydroureter, or calculi seen. At the interpolar aspect of the left kidney a 9 mm benign simple cyst is seen which requires no imaging follow-up per radiology report. The bladder is unremarkable. Bladder ultrasound 09/28 notes the bladder is well distended and normal. Bilateral ureteral jets are demonstrated. Pre void bladder volume is approximately 400 mL. Postvoid bladder volume is approximately 5 mL. Prostate volume is approximately 22 mL. Unremarkable bladder ultrasound. When asked he denies urinary urgency, incontinence, hematuria, dysuria, foul smelling urine, changes to urinary stream, flank pain, fever, and or chills. Discussed at length potential causes for urinary frequency and nocturia. In office urinalysis results reviewed with the patient today. PVR 45 mL. Discussed bladder diary for further assessment evaluation. Urinal provided. [facility] Medical History Encounter for physical examination Family history of hypertension Migraines Surgical History No history of previous surgery Family History Mother Hypertension Diabetes mellitus Father Hypertension CAD (coronary artery disease) Diabetes mellitus Social History Housing: House Alcohol intake: current Alcohol intake frequency: a few times a week Alcohol type: beer Patient Tobacco Use Status: Current everyday Tobacco user Tobacco use type: Cigarette Cigarettes Per Day: 5 e-Cigarette/Vaping Use: Never Used Second Hand Smoke Exposure: Yes service: No Current occupational status: employed Current occupational exposures/hazards: No Cognitive needs: No Hearing needs: No Vision needs: No Review of Systems Const All systems reviewed & are unremarkable except as noted in HPI and below Reports no additional complaints Eyes Reports no additional complaints ENT Reports no additional complaints Card Reports no additional complaints Resp Reports no additional complaints GI Reports no additional complaints Reports as per HPI Musc Reports no additional complaints Neuro Reports as per HPI Psych Reports no additional complaints Endo Reports no additional complaints Ezra/Lymph Reports no additional complaints Aller/Immun Reports no additional complaints Physical Exam Const General: cooperative, healthy appearing, comfortable, no acute distress, well developed, alert and awake Orientation/consciousness: patient oriented x3 Limitations: no limitations HEENT Head: Yes normal to inspection, Yes normocephalic and Yes atraumatic Ears: hearing grossly normal bilaterally Eyes General: appearance normal, both eyes and all related structures Neck Neck: Yes normal visual inspection and Yes trachea midline Chest Chest palpation & inspection: normal inspection of the chest Resp Effort & Inspection: normal respiratory effort and able to speak in complete sentences Cardio Rate: regular rate GI Inspection: Yes normal to inspection General: Yes no CVA tenderness Back/Spine/Pelvis Back: no CVA tenderness Skin General skin exam: no rashes or lesions noted Neuro General: patient oriented x3 Extrem General: Yes normal to inspection Psych Appearance: grossly normal and well kempt Mental Status: mental status grossly normal Speech and movement: Normal speech and movement present and Clear speech present Affect: normal affect Attitude: cooperative Thought process: Normal thought process present Thought content: Normal thought content present Insight: Fair insight present (Psych) Judgement: Fair judgement present (Psych) Office Procedures Post Void Residual Post Residual Void Post Void Residual (PVR): 45 [id number] Void Residual by ultrasound Results AMB Urinalysis, Automated UA Leukoctes 0 Edwin/uL Last Edit by [employer] on 04/04/24 13:28 UA Nitrite Last Edit by [employer] on 04/04/24 13:28 UA Urobilinogen 0.2 mg/dL Last Edit by [employer] on 04/04/24 13:28 UA Protein 15 mg/dL Last Edit by [employer] on 04/04/24 13:28 UA pH 6.0 Last Edit by [employer] on 04/04/24 13:28 UA Blood 0 Ed/uL Last Edit by [employer] on 04/04/24 13:28 UA Specific [place] 1.030 Last Edit by [employer] on 04/04/24 13:28 UA Ketone Last Edit by [employer] on 04/04/24 13:28 UA Bilirubin 0 mg/dL Last Edit by [employer] on 04/04/24 13:28 UA Glucose 0 mg/dL Last Edit by [employer] on 04/04/24 13:28 Quality Reporting (2019) Adult ([facility] 138/07/29/68) Smoking risk assessment performed?: Yes Patient Tobacco Use Status: Current everyday Tobacco user Results Reviewed Results Reviewed: Laboratory Last Values Urine pH (Auto) 6.0 04/04/24 13:20 Specific [place] (Auto) 1.030 04/04/24 13:20 Urine Protein (Auto) 15 mg/dL 04/04/24 13:20 Glucose (UA)(Auto) 0 mg/dL 04/04/24 13:20 Urine Blood (Auto) 0 Ed/uL 04/04/24 13:20 Urine Bilirubin (Auto) 0 mg/dL 04/04/24 13:20 Urine Urobilinogen (Auto) 0.2 mg/dL 04/04/24 13:20 Leukocyte Esterase (Auto) 0 Edwin/uL 04/04/24 13:20 Assessment & Plan Assessment & Plan (1) Nocturia: Code(s): R35.1 - Nocturia Category: Medical (2) Urinary frequency: Code(s): R35.0 - Frequency of micturition Category: Medical Plan This results reviewed with the patient today; as noted above. PVR 45 mL. Recent sleep study results reviewed with the patient; negative for sleep apnea He continues to report episodes of nocturia up to 20 times per night however does feel they are somewhat improved with 5 mg of terazosin. Previous imaging CT urogram as well as bladder ultrasound within normal limits. Urinal provided for bladder diary. Continue terazosin 5 mg at bedtime as discussed and prescribed. Discussed importance of limiting fluids 2-3 hours prior to bed to decrease episodes of nocturia. Will schedule for next available in office cystoscopy for further assessment and evaluation. Follow-up per doctor's orders; or sooner with any issues, concerns, and or questions. Orders: Orders AMB Urinalysis Automated Today Z13.9 - Encounter for screening, unspecified AMB Post Void Residual by ultrasound Today R35.0 - Frequency of micturition Patient Instructions: The patient had an opportunity to ask questions regarding the treatment plan. All questions were answered. Physical exam, labs, and imaging were discussed and reviewed in detail. As well as risks, benefits, and discussion of treatment choices. No major barriers to understanding were identified. The patient ex pressed understanding and agreement with the above treatment plan. The patient was made aware they should contact our office by phone for worsening of their current condition, the appearance of new symptoms, or with any questions or concerns. Compliance is encouraged with any medications and follow up testing that is ordered. It is a privilege to be allowed the opportunity to participate in? your urological care.? Again, if you have any questions or concerns If you have any questions or concerns please do not hesitate to contact me. The office is [phone]. This note is constructed using voice recognition software. While every effort has been made to ensure accuracy commissary officer errors may have been included. Yours sincerely, NEMESIO Jacobson-BC Coding Level of Care Code Est Pt Level 3 (62862) Diagnoses Nocturia R35.1 Urinary frequency R35.0 CPT Codes Post Residual Void - PVR CPT Code: 42807-Izcu Void Residual by ultrasound ([id number])
== END 2024-04-04 14:36 | disposition home or self-care (01) ==
LOC: HO.HUSH 13:06
PROVIDERS: PCP Internal Medicine; Visit Provider Nurse Practitioner Family
DX: R35.1 Nocturia (principal); R35.0 Frequency of micturition; Z13.9 Encounter for screening, unspecified
CPT/HCPCS: 99213

== ENCOUNTER → 2024-04-04 13:05 | Outpatient (BNVA) | payer OTHER, SELFPAY | PROVIDERS: PCP Internal Medicine; Visit Provider Nurse Practitioner Family | DX: R35.1 Nocturia (principal); R35.0 Frequency of micturition | CPT/HCPCS: 51798; 81003; 99212 ==

== ENCOUNTER 2024-05-16 13:51 | Outpatient (AMB) | payer OTHER, SELFPAY ==
--- NOTE | 2024-05-16 13:57 | A.OFFVIS_ITS ---
Intake Visit Reasons: cysto Intake Note: Patient is present for Cystoscopy Urology Medication:TERAZOSIN Antibiotic Allergy:NONE Blood Thinner:NONE Lot:[id number] Exp:04/10/27 Manager Asset Management Required: No Allergies No Known Allergies [No Known Allergies*] Allergy (Verified 05/18/24 14:47) HPI Comments Details: Brijesh is a pleasant Moldovan-speaking male. He is a patient of Dr. Pirce. He is seen for the following urologic conditions - nocturia Minimal benefit from terazosin Reports persistent symptoms a times per night Prior CT urogram normal Lower postvoid residual Cystoscopy normal Based on main symptom being nocturia trial of timed oxybutynin immediate release PFSH Medical History (Updated 05/18/24 @ 15:33 by Alesha Morillo MD) Chronic migraine with aura Cervical dystonia Hematuria Hypercholesterolemia Nocturia Mild major depression Sacroiliac joint pain Muscle spasm Lumbosacral spondylosis Lumbar back pain with radiculopathy affecting left lower extremity Asthma Encounter for physical examination Family history of hypertension Migraines Surgical History No history of previous surgery Family History Mother Hypertension Diabetes mellitus Father Hypertension CAD (coronary artery disease) Diabetes mellitus Social History Housing: House Alcohol intake: current Alcohol intake frequency: a few times a week Alcohol type: beer Patient Tobacco Use Status: Current someday Tobacco user Tobacco use type: Cigarette Cigarettes Per Day: 5 e-Cigarette/Vaping Use: Never Used Second Hand Smoke Exposure: Yes service: No Current occupational status: employed Current occupational exposures/hazards: No Cognitive needs: No Hearing needs: No Vision needs: No Review of Systems Const Denies chills and Denies fever(s) Card Reports no additional complaints and Denies syncope Resp Denies cough GI Denies abdominal pain and Denies heartburn Reports as per HPI and Denies change in libido Neuro Denies syncope Psych Denies change in libido Endo Denies change in libido Physical Exam Const General: cooperative, healthy appearing, comfortable and no acute distress Orientation/consciousness: patient oriented x3 HEENT Face and sinus: Yes normal facial exam Mouth: moist mucous membranes Neck Neck: Yes normal visual inspection, Yes full ROM and Yes trachea midline Chest Chest palpation & inspection: normal inspection of the chest Resp Effort & Inspection: normal respiratory effort, able to speak in complete sentences and no respiratory distress GI Inspection: Yes normal to inspection Back/Spine/Pelvis Cervical Spine: normal cervical lordosis Thoracic/Lumbar Spine: thoracic and lumbar spine normal to inspection Skin General skin exam: no rashes or lesions noted Neuro General: patient oriented x3, gait normal, tone normal and moves all extremities Extrem General: Yes normal to inspection and Yes capillary refill normal Office Procedures Cystoscopy Consent Discussed risk and benefit or proposed procedure with the patient. Information consent for procedure given to the patient. Discussed technical aspects, risks, benefits and alternatives in full. Addressed all of the patient's questions and concerns regarding the procedure. The patient demonstrated knowledge and understanding. They wish to proceed with this procedure. Preparation The patient was prepped in the usual manner. A management accounts manager was present and in the room. Genitalia was prepped with betadine solution in a sterile manner. Lidocaine Jelly 2% was placed into the urethra and 16Fr flexible Olympus cystoscope was inserted into the meatus after adequate lubrication. Procedure Cystoscopy performed using a disposable Urovue digital 16 Armenian cystoscope. Meatus uncircumcised Urethra anterior and posterior urethra normal Prostatic Urethra unremarkable small prostate Bladder examination with retroflexion of cystoscope Bladder Orifices normal shape and position Bladder Capacity median Trabeculations Grade 1 Cellule Formation - Diverticulum Formation -- Mucosal Erythema - Bladder Tumor - [id number] DISPOSABLE SCOPE URO-G FLEXIBLE SCOPE Procedure code (CPT) selection complete Office Meds lidocaine HCl 2 % mucosal jelly in applicator Performing Provider: Solomon Adamson MD [facility] Administered by: Solomon Adamson MD on 05/18/24 16:49 Dose Route Admin Location Dispensed Lot Number Expiration Date [facility] Interventional Radiology Tech 10 mL intra-urethral 10 mL Results AMB Urinalysis, Automated UA Leukoctes 15 Edwin/uL Last Edit by [employer]B [employer] on 05/16/24 14:09 UA Nitrite Negative Last Edit by [employer] on 05/16/24 14:09 UA Urobilinogen 0.2 mg/dL Last Edit by [employer] on 05/16/24 14:0 9 UA Protein 15 mg/dL Last Edit by DEB Bates on 05/16/24 14:09 UA pH 7.5 Last Edit by DEB Bates on 05/16/24 14:09 UA Blood 0 Ed/uL Last Edit by DEB Bates on 05/16/24 14:09 UA Specific [place] 1.015 Last Edit by DEB Bates on 05/16/24 14: 09 UA Ketone Negative Last Edit by DEB Bates on 05/16/24 14:09 UA Bilirubin 0 mg/dL Last Edit by [employer]B [employer] on 05/16/24 14:09 UA Glucose 0 mg/dL Last Edit by DEB Bates on 05/16/24 14:09 Quality Reporting (2019) Adult ([facility] 138/07/29/68) Smoking risk assessment performed?: Yes Patient Tobacco Use Status: Current everyday Tobacco user Results Reviewed Results Reviewed: Laboratory Last Values Urine pH (Auto) 7.5 05/16/24 14:08 Specific [place] (Auto) 1.015 05/16/24 14:08 Urine Protein (Auto) 15 mg/dL 05/16/24 14:08 Glucose (UA)(Auto) 0 mg/dL 05/16/24 14:08 Urine Ketones (Auto) Negative 05/16/24 14:08 Urine Blood (Auto) 0 Ed/uL 05/16/24 14:08 Urine Nitrite (Auto) Negative 05/16/24 14:08 Urine Bilirubin (Auto) 0 mg/dL 05/16/24 14:08 Urine Urobilinogen (Auto) 0.2 mg/dL 05/16/24 14:08 Leukocyte Esterase (Auto) 15 Edwin/uL 05/16/24 14:08 Assessment & Plan Assessment & Plan (1) Urinary frequency: Code(s): R35.0 - Frequency of micturition Category: Medical (2) Nocturia: Code(s): R35.1 - Nocturia Category: Medical Plan Bladder instability Trial oxybutynin Orders: Orders AMB Urinalysis Automated 05/16/24 Z13.9 - Encounter for screening, unspecified AMB Cystoscopy 05/16/24 R35.0 - Frequency of micturition Medications: New lidocaine HCl 2% 10 mL intra-urethral ONCE 10 mL 0RF R35.0 - Frequency of micturition oxybutynin chloride 5 mg PO BEDTIME PRN 30 tabs 1RF bladder spasms R35.1 - Nocturia Patient Instructions: Imaging studies, laboratory and physical exam results were discussed and reviewed in detail. No major barriers to patient understanding were identified. An opportunity to ask questions regarding the treatment plan was provided. All questions were answered. The patient expressed understanding and agreement with the above treatment plan. The patient is aware they should contact our office by phone for worsening of their current condition or the appearance of new urologic symptoms. Compliance is encouraged with any medications and followup testing that is ordered. It is a privilege to participate in the urologic care of your patient. If you have any questions or concerns regarding treatment for the above conditions, or other urologic issues, please do not hesitate to contact me. The office telephone contact is [phone]. This note is constructed using voice recognition software. While every effort has been made to ensure accuracy environmental field services technician errors may have been included. Yours sincerely, Dr Solomon Adamson MD, [facility] - Urology Providers of Expert, Compassionate Care for the Genitourinary System Coding Level of Care Code Est Pt Level 3 (57147) Diagnoses Urinary frequency R35.0 Nocturia R35.1 CPT Codes Cystoscopy - CPT: 78448-[id number] ([id number])
== END 2024-05-16 15:05 | disposition home or self-care (01) ==
PROVIDERS: PCP Internal Medicine; Visit Provider Urology
DX: Z13.9 Encounter for screening, unspecified (principal)

== ENCOUNTER → 2024-05-16 13:51 | Outpatient (BNVA) | payer OTHER, SELFPAY | PROVIDERS: PCP Internal Medicine; Visit Provider Urology | DX: R35.0 Frequency of micturition (principal); R35.1 Nocturia | CPT/HCPCS: 52000; 81003; 99212 ==

== ENCOUNTER 2024-05-18 07:40 | Outpatient (AMB) | payer OTHER, SELFPAY ==
--- NOTE | 2024-05-18 07:41 | MHC.PC.OV ---
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 Accompanied by: Self / Same As Patient Allergies No Known Allergies [No Known Allergies*] Allergy (Verified 05/18/24 07:56) Medication List - Last Reconciled 05/18/24 by Rashmi Rivera MD amitriptyline 25 mg PO BEDTIME 90 days lidocaine 5% 1 patch topically; sumatriptan succinate 100 mg PO Q2-4H PRN 30 days terazosin 5 mg PO BEDTIME 30 days Tobacco use date assessed: 05/18/24 Dental Screening Dental Screen Date: 05/18/24 Did you have a dental visit in the last 12 months?: No Did you have a dental problem in the last 6 months where you did not have access to dental care?: No Was dental information given to patient?: Patient has dentist HPI HPI Comments History of Present Illness Details The patient is a 38-year-old male presenting with ongoing depression, migraines, and back pain related to sciatica. He was previously diagnosed with a major depressive disorder for which he has been taking amitriptyline 25 mg nightly. However, he has run out of medication and requires a refill. He experiences migraine headaches approximately three times a week, with exacerbations noted during stressful procedures such as bladder examinations. He uses sumatriptan as needed for migraine management. The patient reports ongoing lower back pain radiating to the left leg, which occasionally causes numbness in the left leg. The pain, described as severe with a rating of 7-8 out of 10, was exacerbated by a work-related accident two years ago and worsens with prolonged bending or standing. He has a history of sciatica attributed to a lumbar disc issue initially diagnosed post-accident. The patient attempted physical therapy and has used ibuprofen for pain relief. During a bladder exam, the patient was informed of a medication change from Terazosin, but the new medication details were not provided. [facility] Medical History Encounter for physical examination Family history of hypertension Migraines Surgical History No history of previous surgery Family History Mother Hypertension Diabetes mellitus Father Hypertension CAD (coronary artery disease) Diabetes mellitus Social History Housing: House Alcohol intake: current Alcohol intake frequency: a few times a week Alcohol type: beer Patient Tobacco Use Status: Current someday Tobacco user Tobacco use type: Cigarette Cigarettes Per Day: 5 e-Cigarette/Vaping Use: Never Used Second Hand Smoke Exposure: Yes service: No Current occupational status: employed Current occupational exposures/hazards: No Cognitive needs: No Hearing needs: No Vision needs: No Questionnaire Thrive Questionnaire Date Thrive assessed: 11/08/23 KATE-7 AMB Questionnaire AKTE-7 Date KATE - 7 assessed: 11/08/23 Source: Developed by Drs. Davidson Kingston, Amy Gerber, Jesus Salcido and colleagues, with an educational steve from [employer]. Review of Systems Const Details: - Neurological: Reports migraines three times per week, pain radiating to left leg, occasional numbness in left leg. - Genitourinary: Reports bladder dysfunction. - Musculoskeletal: Reports severe lower back pain with an intensity of 7-8/10 upon bending or prolonged standing. Physical exam (Primary Care) Vital Signs: Last Vital Signs BP 108/70 05/18/24 07:42 BMI result Body Mass Index 22.0 Tobacco/Smoking Status: Tobacco use Status Tobacco use date assessed 05/18/24 05/18/24 07:47 Patient Tobacco Use Status Current someday Tobacco 05/18/24 07:47 Tobacco use type Cigarette 05/18/24 07:47 e-Cigarette/Vaping Use Never Used 05/18/24 07:47 Thrive Assessment: Date of Thrive Assessment Date Thrive assessed 11/08/23 05/18/24 07:47 Const Other: General: No confusion Respiratory: Normal respiratory effort, clear to auscultation bilaterally Cardiovascular: No jugular venous distension, regular rate, regular rhythm, S1 normal heart sound present and S2 normal heart sound present Neurology: Patient oriented x3, no focal motor deficits and No confusion Extremities: Full ROM, Straight leg test positive on the left at 50? Psychology: Grossly normal Office Procedures Flu Questionnaire Does the patient have a severe egg allergy?: No Immunizations Fluarix Triv [id number] (PF) 45 mcg (15 mcg x 3)/0.5 mL IM syringe Performing Provider: Rashmi Rivera MD Performing Location: [facility] [place] [facility] Documented (not given) by: SANDY Kemp on 05/18/24 07:48 Reason Not Given: Patient Refused Coding Level of Care Code Est Pt Level 4 (48911) Complex EM visit Add On G2211 Diagnoses Lumbar back pain with radiculopathy affecting left lower extremity M54.16 Muscle spasm M62.838 Mild major depression F32.0 Thoracic degenerative disc disease M51.34 Migraine with aura and without status migrainosus, not intractable G43.109 Migraine type: with aura Status migrainosus presence: without status migrainosus Intractability: not intractable Time Spent (min) 22 Assessment & Plan Assessment & Plan (1) Lumbar back pain with radiculopathy affecting left lower extremity: Code(s): M54.16 - Radiculopathy, lumbar region Category: Medical (2) Muscle spasm: Code(s): M62.838 - Other muscle spasm Category: Medical (3) Mild major depression: Code(s): F32.0 - Major depressive disorder, single episode, mild Category: Medical (4) Thoracic degenerative disc disease: Code(s): M51.34 - Other intervertebral disc degeneration, thoracic region Category: Medical (5) Migraines: Code(s): G43.909 - Migraine, unspecified, not intractable, without status migrainosus Category: Medical Qualifiers: Migraine type: with aura Status migrainosus presence: without status migrainosus Intractability: not intractable Qualified Code(s): G43.109 - Migraine with aura, not intractable, without status migrainosus Plan - Refill amitriptyline 25 mg nightly for depression management. - Refill sumatriptan for migraine management and follow up with neurology today in the office. - Initiation of physical therapy referral for thoracic and lumbar spine issues. - Prescribe ibuprofen for back pain relief. - Consider pain management consultation. - Monitor bladder function following previous examination, pending clarification on new medication. Patient was informed and verbally consented to the use of an ambient scribe for clinic note documentation during this visit. I reviewed the patient's extended history of depression, migraines, and chronic back pain resulting from a work-related injury. I discussed the importance of medication adherence and the need for a refill of amitriptyline for managing depression. We outlined a plan to continue sumatriptan for migraine relief. Options for physical therapy were discussed to address ongoing back issues, which are exacerbated by specific physical activities. The patient was advised on the use of ibuprofen for pain management. We discussed the possibility of further evaluations for pain management and bladder dysfunction, and I highlighted the necessity to follow up on the newly prescribed medication by the urologist. Orders: Orders Influenza [id number] Immunization Today Z23 - Encounter for immunization PT Evaluation and Treatment Today M51.34 - Other intervertebral disc degeneration, thoracic region, M54.16 - Radiculopathy, lumbar region Referrals Pain Management Referral M47.817 - Spondylosis without myelopathy or radiculopathy, lumbosacral region, M51.34 - Other intervertebral disc degeneration, thoracic region, M54.16 - Radiculopathy, lumbar region, M62.838 - Other muscle spasm Medications: New ibuprofen 800 mg PO Q8H PRN 90 tabs 1RF pain 30 days M54.16 - Radiculopathy, lumbar region Refilled amitriptyline 25 mg PO BEDTIME 90 tabs 1RF 90 days F32.0 - Major depressive disorder, single episode, mild sumatriptan succinate do not exceed 2 doses per 24 hrs 100 mg PO Q2-4H PRN 9 tabs 1RF migraine headache 30 days G43.909 - Migraine, unspecified, not intractable, without status migrainosus Discontinued terazosin Discontinued Reason: Patient Completed Course 5 mg PO BEDTIME 30 days 30 caps 3RF N40.1 - Benign prostatic hyperplasia with lower urinary tract symptoms, R35.0 - Frequency of micturition Patient Instructions: - Take amitriptyline nightly as prescribed for depression management. - Use sumatriptan as needed for migraines, according to previous instructions. - Begin physical therapy sessions for back pain as scheduled. - Take ibuprofen as directed for pain relief. - Follow up with the pain management clinic as directed. - Await communication from the urologist regarding new bladder medication. - For any increase in pain or new symptoms, seek immediate medical attention.
[2024-05-18 07:42] VITALS: BP 108/70; BMI 22.0
== END 2024-05-18 08:06 | disposition home or self-care (01) ==
PROVIDERS: PCP Internal Medicine; Visit Provider Internal Medicine
DX: M54.16 Radiculopathy, lumbar region (principal); M62.838 Other muscle spasm; F32.0 Major depressive disorder, single episode, mild; M51.34 Other intervertebral disc degeneration, thoracic region; G43.109 Migraine with aura, not intractable, without status migrainosus; Z23 Encounter for immunization

== ENCOUNTER → 2024-05-18 07:40 | Outpatient (BNVA) | payer OTHER, SELFPAY | PROVIDERS: PCP Internal Medicine; Visit Provider Internal Medicine | DX: G24.3 Spasmodic torticollis (principal); G43.E09 Chronic migraine with aura, not intractable, without status migrainosus; M54.16 Radiculopathy, lumbar region; M62.838 Other muscle spasm; F32.0 Major depressive disorder, single episode, mild; M51.34 Other intervertebral disc degeneration, thoracic region | CPT/HCPCS: 90471; 99212 ==

== ENCOUNTER 2024-05-18 14:28 | Outpatient (AMB) | payer OTHER, SELFPAY ==
--- NOTE | 2024-05-18 14:41 | MHC.OFFVIS ---
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 He started having noticaeble headaches 2 years ago and has increased in frequency the past 1 year. Headaches are usually in left temporal region with light smell noise sensitivity, eye pain , redness of eye , burning sensation with tearing, with nausea , occasional vomiting. He describes the pain as pulsating pain and can also have neck and occipital pain.He takes excedrin and sumatripatn . He is also on amitriptlyne 25 mg qhs for 6 mths He has 2-3/week and it can last 1-2 days . He has occasional visual aura and dizziness. No sensory aura.His mother and sister have migraines. [facility] Medical History (Updated 05/18/24 @ 15:33 by Alesha Morillo MD) Chronic migraine with aura Cervical dystonia Hematuria Hypercholesterolemia Nocturia Mild major depression Sacroiliac joint pain Muscle spasm Lumbosacral spondylosis Lumbar back pain with radiculopathy affecting left lower extremity Asthma Encounter for physical examination Family history of hypertension Migraines Surgical History No history of previous surgery Family History Mother Hypertension Diabetes mellitus Father Hypertension CAD (coronary artery disease) Diabetes mellitus Social History Housing: House Alcohol intake: current Alcohol intake frequency: a few times a week Alcohol type: beer Patient Tobacco Use Status: Current someday Tobacco user Tobacco use type: Cigarette Cigarettes Per Day: 5 e-Cigarette/Vaping Use: Never Used Second Hand Smoke Exposure: Yes service: No Current occupational status: employed Current occupational exposures/hazards: No Cognitive needs: No Hearing needs: No Vision needs: No Physical Exam Vital Signs: Last Vital Signs Pulse 97 05/18/24 14:49 BP 114/74 05/18/24 14:49 Pulse Ox 98 05/18/24 14:49 Oxygen Delivery Method Room Air 05/18/24 14:49 BMI result Body Mass Index 22.1 Const General: cooperative, healthy appearing, comfortable and no acute distress Nutritional Appearance: average body habitus and well nourished Orientation/consciousness: patient oriented x3 Eyes Pupils: Equal, round and reactive pupils present Neuro Other: Neck tightness and tenderness in left levator and splenius,Restricted range of motion General: patient oriented x3, gait normal, tone normal, moves all extremities and no focal motor deficits Cranial nerves: Yes Facial sensation intact/muscles of mastication intact, Yes Equal, round and reactive pupils present, Yes Bilaterally intact EOM present, Yes Nystagmus not present, Yes Normal facial strength present and Yes Midline tongue present Cognition (Neuro): normal cognition Gait exam (Neuro): Normal gait present Motor exam (neuro): 5/5 motor strength present throughout and Normal motor muscle tone present throughout Deep tendon reflexes (DTR's): Right triceps reflex intensity grade: 2+, Left triceps reflex intensity grade: 2+, Rt Biceps (C5, C6): 2+, Left biceps reflex intensity grade: 2+, Right brachioradialis reflex intensity grade: 2+, Left brachioradialis reflex intensity grade: 2+, Right patellar reflex intensity grade: 2+ and Left patellar reflex intensity grade: 2+ Coordination: [id number] test normal Quality Reporting (2019) Adult ([facility] 138/07/29/68) Smoking risk assessment performed?: Yes Patient Tobacco Use Status: Current someday Tobacco user Assessment & Plan Assessment & Plan (1) Cervical dystonia: Code(s): G24.3 - Spasmodic torticollis Category: Medical (2) Chronic migraine with aura: Code(s): G43.E09 - Chronic migraine with aura, not intractable, without status migrainosus Category: Medical Qualifiers: Status migrainosus presence: without status migrainosus Intractability: not intractable Qualified Code(s): G43.E09 - Chronic migraine with aura, not intractable, without status migrainosus Plan His migraines are likely triggered by his cervical spasm dystonia I suggested to continue imitrex 100mg as needed. 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 PT for neck I will consider BOTOX if he does not respond, Orders: Orders PT Evaluation and Treatment Today G24.3 - Spasmodic torticollis Medications: New magnesium oxide 400 mg PO DAILY 30 tabs 0RF Coding Level of Care Code New Pt Level 4 (65763) Complex EM visit Add On G2211 Diagnoses Cervical dystonia G24.3 Chronic migraine with aura without status migrainosus, not intractable G43.E09 Status migrainosus presence: without status migrainosus Intractability: not intractable
[2024-05-18 14:49] VITALS: BP 114/74; PULSE 97; O2SAT 98; BMI 22.1
== END 2024-05-18 15:34 | disposition home or self-care (01) ==
PROVIDERS: Absent Provider Psychiatry & Neurology Neurology; PCP Internal Medicine; Visit Provider Psychiatry & Neurology Neurology
DX: G24.3 Spasmodic torticollis (principal); G43.E09 Chronic migraine with aura, not intractable, without status migrainosus
CPT/HCPCS: 99214; G2211

== ENCOUNTER 2024-05-22 15:01 | Outpatient (AMB) | payer OTHER, SELFPAY ==
--- NOTE | 2024-05-22 15:05 | A.OFFVIS_ITS ---
Vital Signs 05/22/24 15:09 Height 5 ft 9 in Weight 150 lb 8 oz BMI 22.2 BP 140/82 H Blood Pressure Location Rt brachial Position Sitting Pulse 81 Pulse Source Pulse Oximeter Pulse Oximetry (%) 98 Oxygen Delivery Method Room Air Intake Visit Reasons: Lumbar Radiculopathy Intake Note: Pain today 11/14 Vulnerability Assessment Analyst Required: Yes Vulnerability Assessment Analyst Language: Hand Coke Drawer Services: Vulnerability Assessment Analyst Present Vulnerability Assessment Analyst Name: Mili #[id number] Accompanied by: Self / Same As Patient Allergies No Known Allergies [No Known Allergies*] Allergy (Verified 05/22/24 15:10) HPI Comments Details: Patient presents today for follow up for left sided radiculopathy. He was initially seen in November and was recommended to start PT prior to lumbar spine MRI per his insurance. Unfortunately, patient has not started formal PT within past 6 months. He was recently referred for PT by his PCP and Neurology for back and neck pain but has not started this yet. Back pain radiates into his left anterior and lateral lower leg with numbness, tingling and parasthesias in his lateral tabares and toes and left leg heaviness with prolonged walking or bending. Pain is slightly better at rest. Denies any recent cough, cold, infection, fever, bladder or bowel dysfunction, saddle anesthesia, or any significant changes in her medical history, medications or recent hospitalizations. PRIOR: Patient is a pleasant 38 years old Nigerien speaking male with history of migraines and depression, presents today for initial evaluation for low back pain with left-sided radicular symptoms. 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 Patient reports his back pain has been worsening with any heavy lifting, pulling, twisting or bending. He has tried Tylenol, NSAIDs, and [id number] topical applications with continued symptoms. Back pain is ax ial and also radiates to his left mid back in the left lower back, into his left sacral in the left lateral hip with radiation into his left anterior and lateral lower leg with numbness, tingling and cramping in his lateral tabares and toes. Patient reports left leg heaviness and paresthesias with prolonged walking or bending. Denies any previous finds injections or surgery. Pain affects his daily activities, functioning, sleep, and social interactions. Pain is rated at 8/10, constant and is worse in the mornings and evenings. Denies any fever, abdominal or groin pain, foot drop, weakness, bladder or bowel dysfunction or saddle anesthesia. Oswestry low back disability score=25 (severe disability) Location: Lower back radiates into left SIJ and LLE laterally and anteriorly Duration: Over one year after work related injury due to heavy lifting and pulling Characteristics of symptom or complaint: Radiating, dull, stabbing, tightness, sharp, numb, tingling, spasming Aggravating or associated factors: Movements, walking, bending, laying, heavy lifting, twisting, pulling Relieving factors: Walking, resting in curled up position, Tylenol, ice/heat, OTC topicals Treatment: PT in 2022 at [facility] Medical History Chronic migraine with aura Cervical dystonia Hematuria Hypercholesterolemia Nocturia Mild major depression Sacroiliac joint pain Muscle spasm Lumbosacral spondylosis Lumbar back pain with radiculopathy affecting left lower extremity Asthma Encounter for physical examination Family history of hypertension Migraines Surgical History No history of previous surgery Family History Mother Hypertension Diabetes mellitus Father Hypertension CAD (coronary artery disease) Diabetes mellitus Social History Housing: House Alcohol intake: current Alcohol intake frequency: a few times a week Alcohol type: beer Patient Tobacco Use Status: Current someday Tobacco user Tobacco use type: Cigarette Cigarettes Per Day: 5 e-Cigarette/Vaping Use: Never Used Second Hand Smoke Exposure: Yes service: No Current occupational status: employed Current occupational exposures/hazards: No Cognitive needs: No Hearing needs: No Vision needs: No Review of Systems Const All systems reviewed & are unremarkable except as noted in HPI and below Physical Exam Vital Signs: Last Vital Signs Pulse 81 05/22/24 15:09 BP 140/82 H 05/22/24 15:09 Pulse Ox 98 05/22/24 15:09 Oxygen Delivery Method Room Air 12/16/24 15:09 BMI result Body Mass Index 22.2 General: Appears afebrile. Alert and oriented. Mood and affect appropriate. Follows and participates in conversation appropriately. Respiratory effort is unlabored. No cough. Able to transition from sit to stand unassisted. Ambulates with bilaterally normal heel strike and toe off, reports increased pain on the left with toe and heel standing. Neck Neck: Yes no lymphadenopathy, Yes supple, No anterior neck swelling and Yes no JVD General: Yes no CVA tenderness Back/Spine/Pelvis Other: Patient is able to walk and stand on heels and tip toes with no difficulties demonstrating good motor tone. No limping. Can flex forward to 70-75 degrees and extend to 5-10 degrees before experiencing lumbar pain, worse pain with bending and flexing forward. Demonstrates 5/5 strength of quadriceps bilaterally as well as flexion/dorsiflexion of bilateral feet against resistance. 2+ pedal pulses bilaterally. Straight leg rise with dorsiflexion positive on the left. +2 patellar and achilles reflexes bilaterally. Facet loading test positive bilaterally. Shana sign, Long?s, [place], Pelvic compression and St inchfield tests are positive bilaterally, worse on the left. No groin pain with I/E hip rotations. Significant paraspinals tenderness left side, mid and lower back. Valsalva maneuver negative. Back: no CVA tenderness Cervical Spine: normal cervical lordosis, cervical muscular tenderness, pain with cervical ROM, cervical spasm, No Cervical spine tenderness and No step off deformity Thoracic/Lumbar Spine: thoracic and lumbar spine normal to inspection, Thoracic/lumbar spine scar(s), Lasegue's sign positive on the left and localized, pain with thoraco-lumbar ROM, paraspinal muscle tenderness on the left in the lower thoracic, in the upper thoracic and in the mid lumbar, thoraco-lumbar spasm on the left, No thoracic spinal tenderness and lumbar spinal tenderness (L3-S1) Pelvis: buttock tenderness on the left Sacroiliac joints: bilaterally tender to palpation Extrem General: Yes capillary refill normal, Yes no clubbing, cyanosis or edema and Yes no calf tenderness Quality Reporting (2019) Adult ([facility] 138/07/29/68) Smoking risk assessment performed?: Yes Patient Tobacco Use Status: Current someday Tobacco user Results Reviewed Results Reviewed: XR LUMBOSACRAL SPINE 05/28/23 CLINICAL INFORMATION: Low back pain. COMPARISON: 05/27/2022 FINDINGS: There are five segmented vertebra of the lumbar spine. The lumbar vertebra have normal height and alignment. The disc spaces are maintained. 5 degrees of dextrocurvature is measured from the superior endplate of T12 to the inferior plate of L4. Sacrum and sacroiliac joints are normal. Soft tissues are unremarkable. No specific source of pain is identified. IMPRESSION: No evidence of degenerative disc disease, fracture or malalignment. There are no significant radiographic findings within the lumbar spine. Assessment & Plan Assessment & Plan (1) Low back pain: Code(s): M54.50 - Low back pain, unspecified Category: Medical (2) Sacroiliac joint pain: Code(s): M53.3 - Sacrococcygeal disorders, not elsewhere classified Category: Medical (3) Lumbosacral spondylosis: Code(s): M47.817 - Spondylosis without myelopathy or radiculopathy, lumbosacral region Category: Medical (4) Lumbar back pain with radiculopathy affecting left lower extremity: Code(s): M54.16 - Radiculopathy, lumbar region Category: Medical Plan Recommend formal physical therapy for chronic low back pain. Script was provided at previous visit and resubmitted again today. Patient was provided with [facility] contact information. Script provided for Medrol Magdy for left sided radicular symptoms and refill for lidocaine patches for axial low back pain. Side effects and precautions were discussed with patient. All questions and concerns have been answered and patient agreed with the treatment plan. Follow-up in 6-8 weeks to see response to physical therapy, if no response to physical therapy will consider further interventional strategy. Medications: New methylprednisolone (Medrol (Magdy)) PO PER PKG DIR 21 ea 0RF pain M54.16 - Radiculopathy, lumbar region Refilled lidocaine 5% 1 patch topically; 30 ea 0RF pain M47.817 - Spondylosis without myelopathy or radiculopathy, lumbosacral region, M54.50 - Low back pain, unspecified Coding Level of Care Code Est Pt Level 4 (60951) Complex EM visit Add On G2211 Diagnoses Low back pain M54.50 Sacroiliac joint pain M53.3 Lumbosacral spondylosis M47.817 Lumbar back pain with radiculopathy affecting left lower extremity M54.16
[2024-05-22 15:09] VITALS: BP 140/82; PULSE 81; O2SAT 98; BMI 22.2
== END 2024-05-22 15:37 | disposition home or self-care (01) ==
PROVIDERS: PCP Internal Medicine; Referring Provider Internal Medicine; Visit Provider Nurse Practitioner Family
DX: M54.50 Low back pain, unspecified (principal); M53.3 Sacrococcygeal disorders, not elsewhere classified; M47.817 Spondylosis without myelopathy or radiculopathy, lumbosacral region; M54.16 Radiculopathy, lumbar region
CPT/HCPCS: 99214; G2211

== ENCOUNTER → 2024-05-22 15:01 | Outpatient (BNVA) | payer OTHER, SELFPAY | PROVIDERS: PCP Internal Medicine; Referring Provider Internal Medicine; Visit Provider Nurse Practitioner Family | DX: M53.3 Sacrococcygeal disorders, not elsewhere classified (principal); M54.16 Radiculopathy, lumbar region; M47.817 Spondylosis without myelopathy or radiculopathy, lumbosacral region | CPT/HCPCS: 99212 ==

== ENCOUNTER 2024-07-17 08:12 | Outpatient (AMB) | payer OTHER, SELFPAY ==
--- NOTE | 2024-07-17 08:25 | MHC.OFFVIS ---
Intake Visit Reasons: 2m FOLLOW UP Intake Note: Patient presents for follow up visit on: nocturia and frequency Urology Medications: Oxybutynin Blood Thinner: none PVR:50ml's Electronic Service Technician Required: Yes Electronic Service Technician Services: Electronic Service Technician Present Electronic Service Technician Name: Isaias [id number] Accompanied by: Self / Same As Patient Allergies No Known Allergies [No Known Allergies*] Allergy (Verified 07/17/24 09:00) Medication List - Last Reconciled 07/17/24 by PATT Jacobson amitriptyline 25 mg PO BEDTIME 90 days ibuprofen 800 mg PO Q8H PRN 30 days lidocaine 5% 1 patch topically; magnesium oxide 400 mg PO DAILY oxybutynin chloride ER 5 mg PO DAILY sumatriptan succinate 100 mg PO Q2-4H PRN 30 days HPI Comments Details: Brijesh is a very pleasant 38-year-old Rwandan-speaking male patient of Dr. Price. He has a past medical history of migraines. He presents to the office today for follow-up. Of note, during last office visit a proximally 2 months ago patient underwent an office cystoscopy with Dr. Adamson that noted cystoscopy normal. He had previously trialed terazosin and Flomax with minimal improvement in episodes of nocturia he had been experiencing. During last office visit patient was trialed on oxybutynin immediate release. In discussion with the patient today he reports significant improvement in lower urinary tract symptoms. He discusses how happy he is that his nocturia has significantly improved. Previous workup has included a home sleep study noted no sleep apnea. However, moderate/severe snoring was noted. CT urogram 07/31 that noted bilateral kidneys are normal in size, shape, and attenuation. No hydronephrosis, hydroureter, or calculi seen. At the interpolar aspect of the left kidney a 9 mm benign simple cyst is seen which requires no imaging follow-up per radiology report. The bladder is unremarkable. Bladder ultrasound 09/28 notes the bladder is well distended and normal. Bilateral ureteral jets are demonstrated. Pre void bladder volume is approximately 400 mL. Postvoid bladder volume is approximately 5 mL. Prostate volume is approximately 22 mL. Unremarkable bladder ultrasound. In office urinalysis results reviewed with the patient today. PVR 50ml's. When asked he denies any bothersome urinary issues. He denies urinary urgency, urinary frequency, incontinence, nocturia, hematuria, dysuria, foul smelling urine, changes to urinary stream, flank pain, fever, and or chills. He is happy with his current voiding parameters. He otherwise offers no other issues or concerns at this time. [facility] Medical History Chronic migraine with aura Cervical dystonia Hematuria Hypercholesterolemia Nocturia Mild major depression Sacroiliac joint pain Muscle spasm Lumbosacral spondylosis Lumbar back pain with radiculopathy affecting left lower extremity Asthma Encounter for physical examination Family history of hypertension Migraines Surgical History No history of previous surgery Family History Mother Hypertension Diabetes mellitus Father Hypertension CAD (coronary artery disease) Diabetes mellitus Social History Housing: House Alcohol intake: current Alcohol intake frequency: a few times a week Alcohol type: beer Patient Tobacco Use Status: Current someday Tobacco user Tobacco use type: Cigarette Cigarettes Per Day: 5 e-Cigarette/Vaping Use: Never Used Second Hand Smoke Exposure: Yes service: No Current occupational status: employed Current occupational exposures/hazards: No Cognitive needs: No Hearing needs: No Vision needs: No Review of Systems Const All systems reviewed & are unremarkable except as noted in HPI and below Reports no additional complaints Eyes Reports no additional complaints ENT Reports no additional complaints Card Reports no additional complaints Resp Reports no additional complaints GI Reports no additional complaints Reports as per HPI Musc Reports no additional complaints Neuro Reports as per HPI Psych Reports no additional complaints Endo Reports no additional complaints Ezra/Lymph Reports no additional complaints Aller/Immun Reports no additional complaints Physical Exam Const General: cooperative, healthy appearing, comfortable, no acute distress, well developed, alert and awake Orientation/consciousness: patient oriented x3 Limitations: no limitations HEENT Head: Yes normal to inspection, Yes normocephalic and Yes atraumatic Ears: hearing grossly normal bilaterally Eyes General: appearance normal, both eyes and all related structures Neck Neck: Yes normal visual inspection and Yes trachea midline Chest Chest palpation & inspection: normal inspection of the chest Resp Effort & Inspection: normal respiratory effort and able to speak in complete sentences Cardio Rate: regular rate GI Inspection: Yes normal to inspection General: Yes no CVA tenderness Back/Spine/Pelvis Back: no CVA tenderness Skin General skin exam: no rashes or lesions noted Neuro General: patient oriented x3 Extrem General: Yes normal to inspection Psych Appearance: grossly normal and well kempt Mental Status: mental status grossly normal Speech and movement: Normal speech and movement present and Clear speech present Affect: normal affect Attitude: cooperative Thought process: Normal thought process present Thought content: Normal thought content present Insight: Fair insight present (Psych) Judgement: Fair judgement present (Psych) Office Procedures Post Void Residual Post Residual Void Post Void Residual (PVR): 50 [id number] Void Residual by ultrasound Results AMB Urinalysis, Automated UA Leukoctes 0 Edwin/uL Last Edit by Flavourly on 07/17/24 08:57 UA Nitrite Last Edit by Flavourly on 07/17/24 08:57 UA Urobilinogen 0.2 mg/dL Last Edit by Flavourly on 07/17/24 08:57 UA Protein 15 mg/dL Last Edit by Flavourly on 07/17/24 08:57 UA pH 6.0 Last Edit by Flavourly on 07/17/24 08:57 UA Blood 0 Ed/uL Last Edit by Flavourly on 07/17/24 08:57 UA Specific [place] 1.025 Last Edit by Flavourly on 07/17/24 08:57 UA Ketone Last Edit by Flavourly on 07/17/24 08:57 UA Bilirubin 0 mg/dL Last Edit by Flavourly on 07/17/24 08:57 UA Glucose 0 mg/dL Last Edit by Flavourly on 07/17/24 08:57 Quality Reporting (2019) Adult ([facility] 138/07/29/68) Smoking risk assessment performed?: Yes Patient Tobacco Use Status: Current someday Tobacco user Results Reviewed Results Reviewed: Laboratory Last Values Urine pH (Auto) 6.0 07/17/24 08:55 Specific [place] (Auto) 1.025 07/17/24 08:55 Urine Protein (Auto) 15 mg/dL 07/17/24 08:55 Glucose (UA)(Auto) 0 mg/dL 07/17/24 08:55 Urine Blood (Auto) 0 Ed/uL 07/17/24 08:55 Urine Bilirubin (Auto) 0 mg/dL 07/17/24 08:55 Urine Urobilinogen (Auto) 0.2 mg/dL 07/17/24 08:55 Leukocyte Esterase (Auto) 0 Edwin/uL 07/17/24 08:55 Assessment & Plan Assessment & Plan (1) Urinary frequency: Code(s): R35.0 - Frequency of micturition Category: Medical (2) Nocturia: Code(s): R35.1 - Nocturia Category: Medical Plan In office urinalysis results reviewed with the patient today; as noted above. PVR 50 mL. We discussed continuation of limiting fluids 2-3 hours prior to bed to assist with decreasing episodes of nocturia. Continue oxybutynin as discussed and prescribed; refill provided. Patient reports be happy with current voiding parameters. We discussed bladder triggers/irritants. Follow-up in 6 months with PVR; or sooner with any issues, concerns, and or questions. Orders: Orders AMB Post Void Residual by ultrasound Today R35.0 - Frequency of micturition AMB Urinalysis Automated Today Z13.9 - Encounter for screening, unspecified Medications: New oxybutynin chloride ER 5 mg PO DAILY 90 days 90 tabs 3RF Patient Instructions: The patient had an opportunity to ask questions regarding the treatment plan. All questions were answered. Physical exam, labs, and imaging were discussed and reviewed in detail. As well as risks, benefits, and discussion of treatment choices. No major barriers to understanding were identified. The patient expressed understanding and agreement with the above treatment plan. The patient was made aware they should contact our office by phone for worsening of their current condition, the appearance of new symptoms, or with any questions or concerns. Compliance is encouraged with any medications and follow up testing that is ordered. It is a privilege to be allowed the opportunity to participate in? your urological care.? Again, if you have any questions or concerns If you have any questions or concerns please do not hesitate to contact me. The office is [phone]. This note is constructed using voice recognition software. While every effort has been made to ensure accuracy primary counselor errors may have been included. Yours sincerely, BHAVANA Jacobson Coding Level of Care Code Est Pt Level 3 (22273) Diagnoses Urinary frequency R35.0 Nocturia R35.1 CPT Codes Post Residual Void - PVR CPT Code: 46597-[id number] Void Residual by ultrasound ([id number])
== END 2024-07-17 09:03 | disposition home or self-care (01) ==
PROVIDERS: PCP Internal Medicine; Visit Provider Nurse Practitioner Family
DX: R35.0 Frequency of micturition (principal); R35.1 Nocturia; Z13.9 Encounter for screening, unspecified
CPT/HCPCS: 99213

== ENCOUNTER → 2024-07-17 08:12 | Outpatient (BNVA) | payer OTHER, SELFPAY | PROVIDERS: PCP Internal Medicine; Visit Provider Nurse Practitioner Family | DX: R35.0 Frequency of micturition (principal); R35.1 Nocturia | CPT/HCPCS: 51798; 81003; 99212 ==

== ENCOUNTER 2024-07-26 15:13 | Outpatient (AMB) | payer OTHER, SELFPAY ==
[2024-07-26 15:21] VITALS: BP 122/80; PULSE 88; BMI 21.7
--- NOTE | 2024-07-26 15:21 | MHC.OFFVIS ---
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 He has chronic headaches which increased in frequency the past year. He is having a headache currently in office. The headaches are worse in the evening between 8-9pm with severe pain and subsides with Sumatriptan. Headaches are usually in left temporal region with light, smell, noise sensitivity, eye pain, redness of eye, burning sensation with tearing, nausea, occasional vomiting and dizziness. Headaches can last 1-2 days for 2-3 weeks a month. He has occasional visual aura and dizziness. No sensory aura. He vomits 20 min after taking sumatriptan most of the time. He describes the pain as pulsating with occipital neck pain on rotation to the right. He denies allergies, denies MJ however smokes 3 cigarettes a week. He is also taking amitriptlyne 25 mg qhs for 6 mths for depression. His mother and sister have migraines. He also suffers from depression, declines counseling today. He denies injuries to the cervical spine. [facility] Medical History Chronic migraine with aura Cervical dystonia Hematuria Hypercholesterolemia Nocturia Mild major depression Sacroiliac joint pain Muscle spasm Lumbosacral spondylosis Lumbar back pain with radiculopathy affecting left lower extremity Asthma Encounter for physical examination Family history of hypertension Migraines Surgical History No history of previous surgery Family History Mother Hypertension Diabetes mellitus Father Hypertension CAD (coronary artery disease) Diabetes mellitus Social History Housing: House Alcohol intake: current Alcohol intake frequency: a few times a week Alcohol type: beer Patient Tobacco Use Status: Current someday Tobacco user Tobacco use type: Cigarette Cigarettes Per Day: 5 e-Cigarette/Vaping Use: Never Used Second Hand Smoke Exposure: Yes service: No Current occupational status: employed Current occupational exposures/hazards: No Cognitive needs: No Hearing needs: No Vision needs: No Physical Exam Vital Signs: Last Vital Signs Pulse 88 07/26/24 15:21 BP 122/80 07/26/24 15:21 BMI result Body Mass Index 21.7 Const General: cooperative, healthy appearing, comfortable and no acute distress Nutritional Appearance: average body habitus and well nourished Orientation/consciousness: patient oriented x3 Eyes Pupils: Equal, round and reactive pupils present Neuro Other: Neck tightness and tenderness in left levator and splenius,Restricted range of motion General: patient oriented x3, gait normal, tone normal, moves all extremities and no focal motor deficits Cranial nerves: Yes Facial sensation intact/muscles of mastication intact, Yes Equal, round and reactive pupils present, Yes Bilaterally intact EOM present, Yes Nystagmus not present, Yes Normal facial strength present and Yes Midline tongue present Cognition (Neuro): normal cognition Gait exam (Neuro): Normal gait present Motor exam (neuro): 5/5 motor strength present throughout and Normal motor muscle tone present throughout Deep tendon reflexes (DTR's): Right triceps reflex intensity grade: 2+, Left triceps reflex intensity grade: 2+, Rt Biceps (C5, C6): 2+, Left biceps reflex intensity grade: 2+, Right brachioradialis reflex intensity grade: 2+, Left brachioradialis reflex intensity grade: 2+, Right patellar reflex intensity grade: 2+ and Left patellar reflex intensity grade: 2+ Coordination: [id number] test normal Quality Reporting (2019) Adult ([facility] 138/07/29/68) Smoking risk assessment performed?: Yes Patient Tobacco Use Status: Current someday Tobacco user Assessment & Plan Assessment & Plan (1) Chronic migraine with aura: Code(s): G43.E09 - Chronic migraine with aura, not intractable, without status migrainosus Category: Medical Qualifiers: Status migrainosus presence: without status migrainosus Intractability: not intractable Qualified Code(s): G43.E09 - Chronic migraine with aura, not intractable, without status migrainosus Plan Cervical dystonia and spasms due to Chronic migraines will trial him on Rizatriptan 10mg PO Will Trial him on Botox at next f/u visit. Continue Amitryptyline 25mg QHS. Continue Magnesium 400mg QHS May use Peppermint oil on temples PRN May use Migraine Cap as needed. May use Sunglasses Will Trial him on Botox at next f/u visit. 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 Medications: New rizatriptan take 1 tab at onset of headache; if no relief may repeat 1 tab after at least 2 hrs; max = 3 tabs/24 hr orally PRN; 12 tabs 1RF migraine headache MDD 20mg G43.E09 - Chronic migraine with aura, not intractable, without status migrainosus Discontinued sumatriptan succinate do not exceed 2 doses per 24 hrs Discontinued Reason: Doctor's Order 100 mg PO Q2-4H 30 days PRN 9 tabs 1RF migraine headache G43.909 - Migraine, unspecified, not intractable, without status migrainosus Patient Instructions: Rizatriptan take 1 tab at onset of headache, if no relief may repeat 1 tab after at least 2 hours; max =3 tabs/in 24 hours orally. PRN; 12 tabs 1 RF migraine headache MDD 20mg Stop Sumatriptan F/u in 2 months Coding Level of Care Code Est Pt Level 4 (85608) Diagnoses Chronic migraine with aura without status migrainosus, not intractable G43.E09 Status migrainosus presence: without status migrainosus Intractability: not intractable
== END 2024-07-26 16:08 | disposition home or self-care (01) ==
PROVIDERS: PCP Internal Medicine; Visit Provider Physician Assistant Medical
DX: G43.E09 Chronic migraine with aura, not intractable, without status migrainosus (principal)
CPT/HCPCS: 99214

== ENCOUNTER → 2024-07-26 15:13 | Outpatient (BNVA) | payer OTHER, SELFPAY | PROVIDERS: PCP Internal Medicine; Visit Provider Physician Assistant Medical | DX: G43.E09 Chronic migraine with aura, not intractable, without status migrainosus (principal) | CPT/HCPCS: 99212 ==

== ENCOUNTER 2024-08-02 15:31 | Outpatient (RCR) | payer OTHER, SELFPAY ==
--- NOTE | 2024-06-12 09:58 | MHC.PT.EP ---
[facility] [place] Office [place] Office [place] Office [address] Mahi Marcial [address] [phone] F: [phone] F: [phone] F: [phone] F: [phone] Physical Therapy Plan of Care Date of Evaluation: 06/12/24 Date of Surgery: NA Diagnosis: Radiculopathy, lumbar region Assessment: Brijesh is a 38 year old male who is referred to PT for radiculopathy, lumbar region . He reports of having back pain for about 2 years. He injured his back at work about 2 years back while lifting a heavy sheet rock. He was in PT for the same in the past and had some relief with it but his pain has returned recently. On PT examination he presents with 6/10 pain in L side back with sitting, sit to stand, supine to sit and carrying heavy weights, TTP over L lumbar paraspinals from T12 to L 4 level, decreased lumbar ROM, decreased muscle strength, altered posture and gait. He lives with his family is independent with all ADLS but has pain with them. 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 He would benefit from skilled PT to address the aforementioned impairments and improve tolerance to functional activities. Frequency and Duration: The patient will be seen 2/week for 5 weeks Short Term Goals: 1. Pt will have 50% decrease in pain which will enable him to tolerate supine to sit and sit to stand transitions without pain in 2 weeks 2. Pt will be able to move his trunk through full plane of motion without pain which will enable him to dress his lower body without pain in 3 weeks. 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 Pt will demonstrate an increase in muscle strength by 1 grade which will enable him to perform all ADLS without pain in 5 weeks. 2. Pt will be independent with all HEP and demonstrate good body awareness with ADLS and work activities to prevent recurrence of back pain in 5 weeks. Treatment Plan: Modalities to reduce pain, spasms and effusion. Manual therapy to restore motion and function. Therapeutic exercise to improve strength and flexibility. Neuromuscular re-education for posture and balance. Therapeutic activities to return to functional activities of daily living. Electronically signed by: Raisa Rodríguez PT DPT Please sign and return to therapist. Thank you for your referral.
--- NOTE | 2024-08-14 13:07 | MHC.PT.DC ---
[facility] [place] Office [place] Office [place] Office [address]ac[address] Marcial [address] [phone] F: [phone] F: [phone] F: [phone] F: [phone] Physical Therapy Discharge Report Diagnosis: Radiculopathy, lumbar region Date of Surgery: NA Date of Evaluation: 06/12/24 Date of Discharge: 08/14/24 Treatments to Date: 9 Cancellations to Date: 0 No Shows to Date: 0 Discharge Status: Improved Function Independent with HEP Discharge Summary: Brijesh attended 9 PT visits and has made some improvements with PT. He is independent with all HEP. He is therefore being d/c from PT. Electronically signed by: Raisa Rodríguez PT DPT Please sign and return to therapist. Thank you for your referral.
== END 2024-08-14 13:07 | disposition home or self-care (01) ==
LOC: HO.PT 15:31
PROVIDERS: PCP Internal Medicine; Visit Provider Internal Medicine
DX: M54.16 Radiculopathy, lumbar region (principal); M51.34 Other intervertebral disc degeneration, thoracic region
CPT/HCPCS: 97110; 97112; 97140; 97161; 97530

== ENCOUNTER 2024-11-13 07:21 | Outpatient (AMB) | payer OTHER, SELFPAY ==
[2024-11-13 07:39] VITALS: BP 122/80; BMI 21.4
--- NOTE | 2024-11-13 07:39 | A.OFFPC_ITS ---
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: No Accompanied by: Self / Same As Patient Allergies No Known Allergies [No Known Allergies*] Allergy (Verified 11/13/24 07:47) Medication List - Last Reconciled 11/13/24 by Rashmi Rivera MD amitriptyline 25 mg PO BEDTIME 90 days ibuprofen 800 mg PO Q8H PRN 30 days lidocaine 5% 1 patch topically; magnesium oxide 400 mg PO DAILY oxybutynin chloride ER 5 mg PO DAILY 90 days rizatriptan 10 mg PO .onset PRN MDD 20mg Tobacco use date assessed: 11/13/24 Dental Screening Dental Screen Date: 11/13/24 Did you have a dental visit in the last 12 months?: No Did you have a dental problem in the last 6 months where you did not have access to dental care?: No Was dental information given to patient?: Yes HPI HPI Comments History of Present Illness Details The patient is a 39-year-old male presenting with an annual physical examination, complaint of persistent back pain, and ear discomfort. He reports persistent chronic back pain localized to the thoracic region, managed with ibuprofen and lidocaine patches with limited success. The continuation of this pain has been notable, and the patient expresses concern over previous physical therapy not yielding satisfactory results. Previously submitted paperwork indicated the need for additional testing, with delayed follow-up communication. Ear discomfort is described as a headache localized to the ear, persisting for a week, accompanied by a lump. Despite using ear drops, symptoms persist. Additionally, the patient reports mild depression, with a PHQ-9 score of 5, managed historically with amitriptyline for associated insomnia. He reports urinary retention treated with oxybutynin. Recent management for migraines includes eryzatriptan, prescribed by a neurologist. Family history shows diabetes and hypertension prevalence, with personal habits including occasional alcohol consumption and infrequent smoking. - Tetanus vaccine last updated in 2018; next due in 2028. - Plans for laboratory testing in light of family history of diabetes. [facility] Medical History (Updated 11/13/24 @ 07:59 by Rashmi Rivera MD) Chronic migraine with aura Cervical dystonia Hematuria Hypercholesterolemia Nocturia Mild major depression Sacroiliac joint pain Muscle spasm Lumbosacral spondylosis Lumbar back pain with radiculopathy affecting left lower extremity Asthma Encounter for physical examination Family history of hypertension Migraines Surgical History No history of previous surgery Family History Mother Hypertension Diabetes mellitus Father Hypertension CAD (coronary artery disease) Diabetes mellitus Social History Housing: House Alcohol intake: current Alcohol intake frequency: a few times a week Alcohol type: beer Patient Tobacco Use Status: Current someday Tobacco user Tobacco use type: Cigarette Cigarettes Per Day: 5 e-Cigarette/Vaping Use: Never Used Second Hand Smoke Exposure: Yes service: No Current occupational status: employed Current occupational exposures/hazards: No Cognitive needs: No Hearing needs: No Vision needs: No Questionnaire PHQ-9 Over the last 2 weeks, how often have you been bothered by any of the following problems? 1. Little interest or pleasure in doing things: not at all 2. Feeling down, depressed, or hopeless: not at all 3. Trouble falling or staying asleep, or sleeping too much: nearly every day 4. Feeling tired or having little energy: several days 5. Poor appetite or overeating: several days 6. Feeling bad about yourself - or that you are a failure or have let yourself or your family down: not at all 7. Trouble concentrating on things, such as reading the newspaper or watching television: not at all 8. Moving or speaking so slowly that other people could have noticed. Or the opposite - being so fidgety or restless that you have been moving around a lot more than usual: not at all 9. Thoughts that you would be better off or of hurting yourself in some way: not at all Total score: 5 Depression Screening Interpretation: Positive Depression Screening Follow-up: Existing condition, In treatment, Community Mental Health Worker F/U and Follow- up Visit Requested Depression Screening Done: Yes 40866 - PHQ-9 Billing: Yes Source: Developed by Drs. Davidson Kingston, Amy Gerber, Jesus Salcido and colleagues, with an educational steve from [employer]. Thrive Questionnaire Date Thrive assessed: 11/13/24 I am a: Patient What is your living situation today?: I have a steady place to live Within the past 12 months, did the food you bought not last and you didn't have the money to get more?: I choose not to answer this question Within the past 12 months, did you worry whether your food would run out before you got money to buy more?: I choose not to answer this question Do you have trouble paying for medicines?: I choose not to answer this question Do you have trouble getting transportation to medical appointments?: I choose not to answer this question Do you have trouble paying your heating and electricity bill?: I choose not to answer this question Do you have trouble taking care of your child, family member or friend?: No Do you have trouble with day-to-day activities such as bathing, preparing meals, shopping, managing finances, etc.?: No Are you currently unemployed and looking for a job?: No Are you interested in more education?: No Please select the resources that you would like help with: None Currently or been in a relationship where the following occur: No concerns reported THRIVE Score: 0 AUDIT C Alcohol Use Questionnaire (AUDIT-C) 1. How often do you have a drink containing alcohol?: Monthly or less 2. How many drinks containing alcohol do you have on a typical day when you are drinking?: 1 or 2 3. How often do you have six or more drinks on one occasion?: Never Total Score: 1 Score Reviewed/Action Taken: No KATE-7 AMB Questionnaire KATE-7 Date KATE - 7 assessed: 11/13/24 Feeling nervous, anxious, or on edge: 0 = Not at all Not being able to stop or control worryin = Not at all Worrying too much about different things: 0 = Not at all Trouble relaxin = Not at all Being so restless that it is hard to sit still: 0 = Not at all Becoming easily annoyed or irritable: 0 = Not at all Feeling afraid as if something awful might happen: 0 = Not at all Total KATE-7 score (0-4 normal; 5-9 mild; 10-14 moderate; 15-21 severe): 0 Source: Developed by John Yanceyet B.W. Buzz, Jesus Salcido and colleagues, with an educational steve from [employer]. KATE-7 Assessment Billing KATE-7 Assessment Tool: KATE-7 Assessment 42631 Review of Systems Const All systems reviewed & are unremarkable except as noted in HPI and below Card Denies chest pain at rest, Denies chest pain with activity, Denies edema, Denies irregular heart rhythm, Denies claudication, Denies dyspnea, Denies dyspnea on exertion, Denies orthopnea, Denies paroxysmal nocturnal dyspnea and Denies slow heart rate Resp Denies cough, Denies dyspnea and Denies dyspnea on exertion GI Denies abdominal pain, Denies change in bowel habits, Denies excessive flatus, Denies nausea and Denies vomiting Denies urinary hesitancy, Denies urinary incontinence and Denies urinary urgency Musc Denies abnormal gait, Denies atrophy, Denies deformity and Denies limited range of motion Skin/Breast Denies bleeding lesions, Denies changing lesions and Denies rash Neuro Denies abnormal gait, Denies behavioral changes and Denies lack of coordination Psych Denies behavioral changes Physical exam (Primary Care) Vital Signs: Last Vital Signs BP 122/80 11/13/24 07:39 BMI result Body Mass Index 21.4 Tobacco/Smoking Status: Tobacco use Status Tobacco use date assessed 11/13/24 11/13/24 07:45 Patient Tobacco Use Status Current someday Tobacco 11/13/24 07:45 Tobacco use type Cigarette 11/13/24 07:45 e-Cigarette/Vaping Use Never Used 11/13/24 07:45 PHQ-9: PHQ-9 Score PHQ-9: Total score 5 11/13/24 07:45 Depression Screening Interpretation: Positive Depression Screening Follow-up: Existing condition, In treatment, Community Mental Health Worker F/U and Follow- up Visit Requested Thrive Assessment: Date of Thrive Assessment Date Thrive assessed 11/13/24 11/13/24 07:45 Currently or been in a relationship where the following occur: No concerns reported HENMT Other: Excessive ear wax on the left ear Head: Yes normal to inspection, Yes normocephalic and Yes atraumatic Ears: external ears normal Eyes General: appearance normal, both eyes and all related structures Eyelids: Yes eyelids normal Conjunctivae: conjunctivae normal Neck Neck: Yes normal visual inspection and Yes supple Resp Effort & Inspection: normal respiratory effort Auscultation: clear to auscultation bilaterally Cardio Jugular venous distension: no JVD Rate: regular rate Rhythm: regular rhythm Heart sounds: S1 normal heart sound present and S2 normal heart sound present GI Inspection: Yes normal to inspection Palpation (GI): Soft to palpation and nontender Auscultation: normal bowel sounds Skin Other: Callus in left foot General skin exam: no rashes or lesions noted Neuro General: no focal motor deficits Extrem General: Yes full ROM Psych Appearance: grossly normal Coding Level of Care Code Est Pt Level 3 (78106) Est Pt Prev Care 18-39y(14733) Diagnoses Physical exam Z00.00 Foot callus L84 Mild major depression F32.0 Low back pain M54.50 Additional Codes PHQ-9 - 12161 - PHQ-9 Billing: Yes ([id number]) KATE-7 Assessment Billing - KATE-7 Assessment Tool: KATE-7 Assessment 03299 ([id number]) Time Spent (min) 34 Assessment & Plan Assessment & Plan (1) Physical exam: Code(s): Z00.00 - Encounter for general adult medical examination without abnormal findings Category: Medical (2) Foot callus: Code(s): L84 - Corns and callosities Category: Medical (3) Mild major depression: Code(s): F32.0 - Major depressive disorder, single episode, mild Category: Medical (4) Low back pain: Code(s): M54.50 - Low back pain, unspecified Category: Medical Plan For chronic back pain, I recommend continued ibuprofen and lidocaine usage while encouraging timely neurologist follow-up due to a lack of response to prior therapy. For ear discomfort attributed to wax buildup, I suggest appropriate ear drops with a follow-up if symptoms persist. Current regimens for mild depression (with amitriptyline aiding insomnia), migraines (eryzatriptan), and urinary retention (oxybutynin) remain active. Health maintenance emphasized scheduling laboratory tests for diabetes risk in light of family history and confirmed tetanus shot timelines. Discussions highlighted moderating alcohol and tobacco use and encouraged overcoming challenges in timely follow-up and communication with specialists, particularly for mental health. Patient was informed and verbally consented to the use of an ambient scribe for clinic note documentation during this visit. We reviewed the patient's chronic back pain management strategy, reinforcing the need for further neurologist evaluation given persistent symptoms and inefficacy of current interventions. Ear discomfort symptomatic of cerumen impaction will be addressed with ear drops, emphasizing timely reevaluation if necessary. We discussed ongoing mild depression management with amitriptyline, with acknowledgments of its benefit for insomnia. The recent adjustment in migraine management with eryzatriptan was noted, and ongoing treatments for urinary retention with oxybutynin continue as previously managed. Lifestyle discussions focused on minimizing alcohol and tobacco use, with anticipation of diabetes risk laboratory tests informed by a significant family history. The patient seemed satisfied with the treatment plan once clarified and expressed interest in ensuring regular follow-ups with necessary specialists. Orders: Orders Lipid Panel Today Z00.00 - Encounter for general adult medical examination without abnormal findings Comprehensive [place]. Panel Fast Today G43.109 - Migraine with aura, not intractable, without status migrainosus Referrals Pain Management Referral M54.50 - Low back pain, unspecified Podiatry Referral L84 - Corns and callosities Medications: New cephalexin 500 mg PO BID 7 days 14 caps 0RF carbamide peroxide 6.5% (Debrox) 5 drps otic (ear) left DAILY 4 days 15 mL 0RF Patient Instructions: - Continue using ibuprofen and lidocaine patches for back pain. - Use ear drops as discussed; follow up if symptoms persist. - Maintain current regimen for depression and insomnia. - Use oxybutynin for urinary retention as prescribed. - Follow prescribed plan for migraine management with eryzatriptan. - Schedule necessary lab tests for diabetes risk assessment. - Limit alcohol to only a couple of times a week, and avoid smoking. - Continue to monitor for any new symptoms and call if they arise.
== END 2024-11-13 07:59 | disposition home or self-care (01) ==
LOC: HO.HMCH 07:22
PROVIDERS: PCP Internal Medicine; Visit Provider Internal Medicine
DX: Z00.00 Encounter for general adult medical examination without abnormal findings (principal); L84 Corns and callosities; F32.0 Major depressive disorder, single episode, mild; M54.50 Low back pain, unspecified

== ENCOUNTER → 2024-11-13 07:21 | Outpatient (BNVA) | payer OTHER, SELFPAY | PROVIDERS: PCP Internal Medicine; Visit Provider Internal Medicine | DX: Z00.00 Encounter for general adult medical examination without abnormal findings (principal); L84 Corns and callosities; F32.0 Major depressive disorder, single episode, mild; M54.50 Low back pain, unspecified; Z13.31 Encounter for screening for depression; Z13.30 Encounter for screening examination for mental health and behavioral disorders, unspecified; G43.E09 Chronic migraine with aura, not intractable, without status migrainosus; G24.3 Spasmodic torticollis; Z79.899 Other long term (current) drug therapy | CPT/HCPCS: 96127; 99212; 99395 ==

== ENCOUNTER 2024-11-13 14:17 | Outpatient (AMB) | payer OTHER, SELFPAY ==
[2024-11-13 14:31] VITALS: BP 124/80; PULSE 90; O2SAT 99; BMI 21.6
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
== END 2024-11-13 15:22 | disposition home or self-care (01) ==
LOC: HO.HSMS 14:17
PROVIDERS: PCP Internal Medicine; Visit Provider Physician Assistant Medical
DX: G43.E09 Chronic migraine with aura, not intractable, without status migrainosus (principal); G24.3 Spasmodic torticollis
CPT/HCPCS: 99214

== ENCOUNTER 2024-11-23 14:55 | Outpatient (AMB) | payer OTHER, SELFPAY ==
--- NOTE | 2024-11-23 15:00 | MHC.OFFVIS ---
Vital Signs 11/23/24 15:03 Height 5 ft 9 in Weight 144 lb 8 oz BMI 21.3 BP 137/84 Blood Pressure Location Lt brachial Position Sitting Pulse 91 Pulse Source Pulse Oximeter Pulse Oximetry (%) 100 Oxygen Delivery Method Room Air Intake Visit Reasons: FU Low back pain, unspecified Intake Note: Pain today 12/14 Deputy Building Guard Required: Yes Deputy Building Guard Language: Brazer Resistance Services: Deputy Building Guard Present Deputy Building Guard Name: Lay Information Interpreted: non-clinical & clinical Accompanied by: Self / Same As Patient Allergies No Known Allergies (No Known Allergies*) Allergy (Verified 11/23/24 15:03) HPI Comments Details: The patient is a 39-year-old male presenting with chronic low back pain with radiculopathy. The pain radiates to the left leg, causing numbness and tingling, and is exacerbated by bending. Physical therapy was attempted for two months with minimal relief, and current medications include ibuprofen and baclofen, which have limited effectiveness. The patient reports sleep disturbances due to pain and experiences heaviness and weakness in the left leg during activities. - Onset: Chronic, persistent pain - Quality: Sharp, shooting, radiating and throbbing pain - Location: Low back radiating to the left leg - Radiation: Left anterior and lateral lower leg - Exacerbating factors: Bending forward or backward, walking, prolonged standing, heavy lifting - Relieving factors: Minimal relief with rest, activity modifications, Baclofen, Ibuprofen, lidocaine patch, OTC topicals - Interference: Affects sleep and causes heaviness and weakness in the left leg - Affect: Pain impacts sleep and daily activities - Analgesia: Ibuprofen and baclofen used with limited relief - Adverse Effects: None reported - Activities of Daily Living: Pain causes heaviness and weakness in the left leg, affecting mobility - Aberrant Drug Related Behaviors: None reported PRIOR: Patient presents today for follow up for left sided radiculopathy. He was initially seen in November and was recommended to start PT prior to lumbar spine MRI per his insurance. Unfortunately, patient has not started formal PT within past 6 months. He was recently referred for PT by his PCP and Neurology for back and neck pain but has not started this yet. Back pain radiates into his left anterior and lateral lower leg with numbness, tingling and parasthesias in his lateral tabares and toes and left leg heaviness with prolonged walking or bending. Pain is slightly better at rest. Denies any recent cough, cold, infection, fever, bladder or bowel dysfunction, saddle anesthesia, or any significant changes in her medical history, medications or recent hospitalizations. PRIOR: Patient is a pleasant 38 years old Grenadian speaking male with history of migraines and depression, presents today for initial evaluation for low back pain with left-sided radicular symptoms. 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 Patient reports his back pain has been worsening with any heavy lifting, pulling, twisting or bending. He has tried Tylenol, NSAIDs, and [id number] topical applications with continued symptoms. Back pain is axial and also radiates to his left mid back in the left lower back, into his left sacral in the left lateral hip with radiation into his left anterior and lateral lower leg with numbness, tingling and cramping in his lateral tabares and toes. Patient reports left leg heaviness and paresthesias with prolonged walking or bending. Denies any previous finds injections or surgery. Pain affects his daily activities, functioning, sleep, and social interactions. Pain is rated at 8/10, constant and is worse in the mornings and evenings. Denies any fever, abdominal or groin pain, foot drop, weakness, bladder or bowel dysfunction or saddle anesthesia. Oswestry low back disability score=25 (severe disability) Location: Lower back radiates into left SIJ and LLE laterally and anteriorly Duration: Over one year after work related injury due to heavy lifting and pulling Characteristics of symptom or complaint: Radiating, dull, stabbing, tightness, sharp, numb, tingling, spasming Aggravating or associated factors: Movements, walking, bending, laying, heavy lifting, twisting, pulling Relieving factors: Walking, resting in curled up position, Tylenol, ice/heat, OTC topicals Treatment: PT in 2022 at [facility] Medical History Chronic migraine with aura Cervical dystonia Hematuria Hypercholesterolemia Nocturia Mild major depression Sacroiliac joint pain Muscle spasm Lumbosacral spondylosis Lumbar back pain with radiculopathy affecting left lower extremity Asthma Encounter for physical examination Family history of hypertension Migraines Surgical History No history of previous surgery Family History Mother Hypertension Diabetes mellitus Father Hypertension CAD (coronary artery disease) Diabetes mellitus Social History Housing: House Alcohol intake: current Alcohol intake frequency: a few times a week Alcohol type: beer Patient Tobacco Use Status: Current someday Tobacco user Tobacco use type: Cigarette Cigarettes Per Day: 5 e-Cigarette/Vaping Use: Never Used Second Hand Smoke Exposure: Yes service: No Current occupational status: employed Current occupational exposures/hazards: No Cognitive needs: No Hearing needs: No Vision needs: No Review of Systems Const Details: - Musculoskeletal: Reports chronic low back pain radiating to the left leg, numbness, and tingling - Neurological: Reports heaviness and weakness in the left leg - Sleep: Reports difficulty sleeping due to pain All systems reviewed & are unremarkable except as noted in HPI and below Physical Exam Vital Signs: Last Vital Signs Pulse 91 11/23/24 15:03 BP 137/84 11/23/24 15:03 Pulse Ox 100 11/23/24 15:03 Oxygen Delivery Method Room Air 11/23/24 15:03 BMI result Body Mass Index 21.3 General: Appears afebrile. Alert and oriented. Mood and affect appropriate. Follows and participates in conversation appropriately. Respiratory effort is unlabored. No cough. Able to transition from sit to stand unassisted. Ambulates with bilaterally normal heel strike and toe off, reports increased pain on the left with toe and heel standing. Neck Neck: Yes no lymphadenopathy, Yes supple, No anterior neck swelling and Yes no JVD General: Yes no CVA tenderness Back/Spine/Pelvis Other: Limited lumbar ROM due to pain. Mildly antalgic gait. No limping. Can flex forward to 70-75 degrees and extend to 5-10 degrees before experiencing lumbar pain, worse pain with bending and flexing forward. Demonstrates 5/5 right and 4/5 left strength of quadriceps bilaterally as well as flexion/dorsiflexion of bilateral feet against resistance. 2+ pedal pulses bilaterally. Straight leg rise with dorsiflexion positive on the left. +2 patellar and achilles reflexes bilaterally. Facet loading test positive bilaterally. Shana sign, Long?s, Pelvic compression and Stinchfield tests are positive bilaterally, left>right. No groin pain with I/E hip rotations. Significant paraspinals tenderness left side, mid and lower back. Valsalva maneuver negative. Back: no CVA tenderness and back tenderness (left lower lumbar paraspinals and midline) Cervical Spine: normal cervical lordosis, cervical muscular tenderness, pain with cervical ROM, cervical spasm, No Cervical spine tenderness and No step off deformity Thoracic/Lumbar Spine: thoracic and lumbar spine normal to inspection, Thoracic/lumbar spine scar(s), Lasegue's sign positive on the left and localized, pain with thoraco-lumbar ROM, paraspinal muscle tenderness on the left in the lower thoracic, in the upper thoracic and in the mid lumbar, thoraco-lumbar spasm on the left, No thoracic spinal tenderness and lumbar spinal tenderness (L3-S1) Pelvis: buttock tenderness on the left Sacroiliac joints: bilaterally tender to palpation Extrem General: Yes capillary refill normal, Yes no clubbing, cyanosis or edema and Yes no calf tenderness Results Reviewed Results Reviewed: XR LUMBOSACRAL SPINE 05/28/23 CLINICAL INFORMATION: Low back pain. COMPARISON: 05/27/2022 FINDINGS: There are five segmented vertebra of the lumbar spine. The lumbar vertebra have normal height and alignment. The disc spaces are maintained. 5 degrees of dextrocurvature is measured from the superior endplate of T12 to the inferior plate of L4. Sacrum and sacroiliac joints are normal. Soft tissues are unremarkable. No specific source of pain is identified. IMPRESSION: No evidence of degenerative disc disease, fracture or malalignment. There are no significant radiographic findings within the lumbar spine. XR SACROILIAC JOINTS 11/19/23 CLINICAL INFORMATION: Sacrococcygeal disorders COMPARISON: CT scan the abdomen and pelvis July 2023 FINDINGS: soft tissues are normal. No fracture. Alignment is anatomic. Sacroiliac joint spaces are well-maintained without erosions or surrounding sclerosis. Circular appearing sclerosis in the left femoral neck likely related to the femoral necks cyst measuring approximately 1 cm. This is unchanged compared with recent CT IMPRESSION: 1. Normal sacroiliac joints. 2. Stable benign-appearing sclerosis in the left femoral neck likely related to the femoral neck cyst better characterized on recent CT. Assessment & Plan Assessment & Plan (1) Low back pain: Code(s): M54.50 - Low back pain, unspecified Category: Medical (2) Sacroiliac joint pain: Code(s): M53.3 - Sacrococcygeal disorders, not elsewhere classified Category: Medical (3) Lumbosacral spondylosis: Code(s): M47.817 - Spondylosis without myelopathy or radiculopathy, lumbosacral region Category: Medical (4) Lumbar back pain with radiculopathy affecting left lower extremity: Code(s): M54.16 - Radiculopathy, lumbar region Category: Medical Plan The plan involves obtaining an MRI of the lumbar spine to assess the underlying cause of the chronic low back pain and radiculopathy. Current medications, ibuprofen and baclofen, will be continued until further diagnostic results are available. A follow-up appointment will be arranged post-MRI to review the results and modify the treatment plan as necessary. Patient was informed and verbally consented to the use of an ambient scribe for clinic note documentation during this visit. Orders: Orders MR lumbar spine wo con Today M47.817 - Spondylosis without myelopathy or radiculopathy, lumbosacral region, M54.16 - Radiculopathy, lumbar region, M54.50 - Low back pain, unspecified Coding Level of Care Code Est Pt Level 4 (91786) Complex EM visit Add On G2211 Diagnoses Low back pain M54.50 Sacroiliac joint pain M53.3 Lumbosacral spondylosis M47.817 Lumbar back pain with radiculopathy affecting left lower extremity M54.16
[2024-11-23 15:03] VITALS: BP 137/84; PULSE 91; O2SAT 100; BMI 21.3
== END 2024-11-23 15:31 | disposition home or self-care (01) ==
LOC: HO.PMC 14:55
PROVIDERS: PCP Internal Medicine; Referring Provider Internal Medicine; Visit Provider Nurse Practitioner Family
DX: M54.50 Low back pain, unspecified (principal); M53.3 Sacrococcygeal disorders, not elsewhere classified; M47.817 Spondylosis without myelopathy or radiculopathy, lumbosacral region; M54.16 Radiculopathy, lumbar region
CPT/HCPCS: 99214; G2211

== ENCOUNTER → 2024-11-23 14:55 | Outpatient (BNVA) | payer OTHER, SELFPAY | PROVIDERS: PCP Internal Medicine; Referring Provider Internal Medicine; Visit Provider Nurse Practitioner Family | DX: M54.50 Low back pain, unspecified (principal); M54.16 Radiculopathy, lumbar region; M53.3 Sacrococcygeal disorders, not elsewhere classified; M47.817 Spondylosis without myelopathy or radiculopathy, lumbosacral region | CPT/HCPCS: 99212 ==

== ENCOUNTER 2024-12-02 06:56 | Outpatient (REF) | payer OTHER, SELFPAY ==
--- NOTE | ~2024-12-02 | XR_ITS ---
CLINICAL HISTORY: R O METAL IN EYES MRI Screening XR PRE MRI SCREENING Comparison: None provided Findings: No acute fractures. Paranasal sinuses and mastoids are clear. No radiopaque foreign body. IMPRESSION: 1. No metallic foreign bodies in the orbits. This document has been electronically signed by: Mahin Garcia MD on 12/02/2024 08:13:15
--- OUTSIDE RECORDS SUMMARY | 2024-12-02 07:00 | XMS_ITS | Clinical Summary ---
Author Organization 175 [facility] Address [address] [place] [address] Phone Care Team Providers Care Coring Machine Operator Name Role Phone Rashmi Rivera MD Primary Care Provider [phone] Social History Tobacco Use Types Packs/Day Years Used Date Smoking Tobacco: Never Assessed Sex and Gender Information Value Date Recorded Sex Assigned at Not on file Legal Sex Male 9:28 AM EDT Gender Identity Not on file Sexual Orientation Not on file Plan of Treatment Upcoming Encounters Date Type Department Care Team ([facility] st Contact Info) Description 02/01/2025 8:30 AM EDT Consult Orthopedic Surgery - [place] [id number] [phone] Kp Grimaldo DPM [address] [phone] Health Maintenance Due Date Last Done Comments DTaP,Tdap,and Td Vaccines (1 - Tdap) 2004 Hepatitis B Vaccines (1 of 3 - 19+ 3-dose series) 2004 COVID-19 Vaccine ( - 2023-2 5 season) 2024 Cholesterol Screening (Lipid Panel) 11/14/2024 Depression Screening 11/14/2024 HIV Screening 11/14/2024 Hepatitis C Screening 11/14/2024 Social Influencers of Health Screening 11/14/2024 Influenza Vaccine (Season Ended) 2025 HIB Vaccines Aged Out No longer eligi ble based on patient's age to complete this topic HPV Vaccines Aged Out No longer eligi ble based on patient's age to complete this topic Hepatitis A Vaccines Aged Out No long er eligible based on patient's age to complete this topic IPV Vaccines Aged Out No longer eligi ble based on patient's age to complete this topic MMR Vaccines Aged Out No longer eligi ble based on patient's age to complete this topic Meningococcal ACWY Vaccine Aged Out N o longer eligible based on patient's age to complete this topic Meningococcal B Vaccine Aged Out No l onger eligible based on patient's age to complete this topic Pneumococcal Vaccine: Pediat rics (0 to 5 Years) and At-Risk Patients (6 to 64 Years) Aged Out No longer eligible b ased on patient's age to complete this topic RSV Immunization Patients Un lela 20 months Aged Out No longer eligible b ased on patient's age to complete this topic Varicella Vaccines Aged Out No longer eligible based on patient's age to complete this topic Insurance PLAN Care Teams Coring Machine Operator Relationship Specialty Start Date End Date Rashmi Rivera MD [address] [place] [address] , [address] [employer] [facility] D[facility]A: [facility] [place], [place] PCP - General Internal Medicine 11/14/24
[2024-12-02 07:26] LABS: Hematocrit 44.8 % (42.0-52.0); Hemoglobin 15.3 g/dl (14.0-18.0); Mean Corpuscular HGB Conc 34.2 g/dl (31.0-36.0); Mean Corpuscular Hemoglobin 28.8 pg (27.0-33.0); Mean Corpuscular Volume 84.2 fL (80.0-98.0); Mean Platelet Volume 9.7 fL (9.4-12.4); Platelet Count 217 X10*3/uL (160-400); Red Blood Count 5.32 X10*6/uL (4.60-5.80); Red Cell Distribution Width 12.4 % (11.0-16.0); White Blood Count 6.1 X10*3/uL (4.8-10.8)
[2024-12-02 07:48] LABS: Alanine Aminotransferase 18 U/L (0-40); Albumin Level 4.5 g/dL (3.5-5.0); Alkaline Phosphatase 70 U/L (39-117); Anion Gap 11 (12-20); Aspartate Amino Transferase 26 U/L (5-37); Bilirubin Total 0.3 mg/dL (0.0-1.0); Blood Urea Nitrogen 16 mg/dL (9-16); Calcium 8.8 mg/dL (8.4-10.2); Carbon Dioxide 26 mmol/L (22-29); Chloride 107 mmol/L (96-108); Estimated Glomerular Filt Rate > 60; Glucose Random 90 mg/dL (60-115); Magnesium 2.2 mg/dL (1.6-2.6); Potassium 4.4 mmol/L (3.3-5.1); Sodium 140 mmol/L (135-145); Total Protein 6.8 g/dL (6.5-8.0)
[2024-12-02 08:04] LABS: Ferritin 104 ng/mL (20-250); TSH reflex Free T4 2.04 uIU/mL (0.32-4.0); Vitamin D 25-OH Total 28.5 ng/mL (>30)
[2024-12-02 08:14] LABS: Folate 10.6 ng/mL (> or = 4.0); Vitamin B12 304 pg/mL (200-900)
[2024-12-04 15:44] LABS: Homocysteine 8.2 umol/L (< or = 13.5)
[2024-12-06 17:24] LABS: Methylmalonic Acid 160 nmol/L (55-335)
== END 2024-12-02 06:57 | disposition home or self-care (01) ==
LOC: HO.XRAY 06:56
PROVIDERS: Physician Assistant Medical; Absent Provider Radiology Diagnostic Radiology; PCP Internal Medicine; Visit Provider Internal Medicine
DX: G43.E09 Chronic migraine with aura, not intractable, without status migrainosus (principal); R53.83 Other fatigue; G47.9 Sleep disorder, unspecified
CPT/HCPCS: 36415; 80053; 82306; 82607; 82728; 82746; 83090; 83735; 83921; 84443; 85027

== ENCOUNTER 2024-12-09 08:09 | Outpatient (REF) | payer OTHER, SELFPAY ==
--- NOTE | ~2024-12-09 | MR_ITS ---
CLINICAL HISTORY: M47.817 - Spondylosis without myelopathy or radiculopathy, lumbosacral r... MR lumbar spine without gadolinium Comparison: CR/SR - XR LUMBAR SPINE 2-3V - 05/28/23 14:03 EST Findings: No scoliosis or spondylolisthesis. No acute fracture or pathologic bone lesion. Cauda equina and conus medullaris within normal limits. There is disc desiccation at the L4-5 level and mildly at the L5-S1 level. There is no significant loss of height. At L4-L5 there is a minimal left paracentral disc protrusion and annular tear. There is minimal deformity of the dural sac. There is no neural foraminal narrowing noted. Paraspinous musculature intact. A small right S1 perineural cyst is present. The rest of the discs are unremarkable. All neural foramina are patent. IMPRESSION: 1. Minimal left paracentral disc protrusion at L4-5 with annular tear. 2. Tiny right perineural cyst involving S1. This document has been electronically signed by: Patricio Johnson MD on 12/09/2024 09:30:57
== END 2024-12-09 08:10 | disposition home or self-care (01) ==
LOC: HO.MRI 08:09
PROVIDERS: PCP Internal Medicine; Visit Provider Nurse Practitioner Family
DX: M47.817 Spondylosis without myelopathy or radiculopathy, lumbosacral region (principal); M54.16 Radiculopathy, lumbar region; M54.50 Low back pain, unspecified
CPT/HCPCS: 72148

== ENCOUNTER → 2024-12-09 08:19 | Outpatient (BNV) | payer OTHER, SELFPAY | PROVIDERS: PCP Internal Medicine; Visit Provider Radiology Diagnostic Radiology | DX: M51.26 Other intervertebral disc displacement, lumbar region (principal) | CPT/HCPCS: 72148 ==

== ENCOUNTER 2025-01-05 06:55 | Outpatient (REF) | payer OTHER, SELFPAY ==
--- NOTE | ~2025-01-05 | CT_ITS ---
EXAMINATION: CT HEAD WITHOUT CONTRAST CLINICAL INFORMATION: G43.E09 - Chronic migraine with aura, not intractable, without status mi... COMPARISON: July 16, 2019 TECHNIQUE: Contiguous axial imaging was performed from the skull base to vertex without intravenous administration of contrast. This CT examination was performed using dose optimization techniques as appropriate, variously including the following: *Automated exposure control *Adjustment of mA and/or kV according to patient size (this includes techniques or standardized protocols for targeted exams where dose is matched to indication/reason for exam; i.e. extremities or head) *Use of iterative reconstruction technique DLP: 729 mGy-cm FINDINGS: No acute intracranial hemorrhage, mass effect, midline shift, hydrocephalus or herniation. Hill-white matter differentiation is normal. Sellar/suprasellar region demonstrated no gross masses. There is normal position of the cerebellar tonsils. Tympanic cavities and mastoid cells are aerated. Pneumatized petrous apices, congenital. No air-fluid levels in the paranasal sinuses. Small retention cyst posterior left ethmoid air cells. No gross masses or fluid collections in the intraconal or extraconal compartments of the orbits. CT/CT head/brain wo IV con IMPRESSION: No acute or structural brain abnormality by CT. Electronically signed by: Jamel Blunt MD 01/05/2025 08:14 AM EDT
--- OUTSIDE RECORDS SUMMARY | 2025-01-05 06:57 | XMS_ITS | Clinical Summary ---
Author Organization 175 [facility] Address [address] [place] [address] Phone Care Team Providers Care Music Cataloguer Name Role Phone Rashmi Rivera MD Primary Care Provider [phone] Social History Tobacco Use Types Packs/Day Years Used Date Smoking Tobacco: Never Assessed Sex and Gender Information Value Date Recorded Sex Assigned at Not on file Legal Sex Male 9:28 AM EDT Gender Identity Not on file Sexual Orientation Not on file Plan of Treatment Upcoming Encounters Date Type Department Care Team ([facility] st Contact Info) Description 02/01/2025 8:30 AM EDT Consult Orthopedic Surgery - [place] [id number] [phone] Kp Grimaldo DPM [address] [phone] Health Maintenance Due Date Last Done Comments DTaP,Tdap,and Td Vaccines (1 - Tdap) 2004 Hepatitis B Vaccines (1 of 3 - 19+ 3-dose series) 2004 COVID-19 Vaccine ( - 2023-2 5 season) 2024 Depression Screening 06/07/2024 Cholesterol Screening (Lipid Panel) 11/14/2024 HIV Screening 11/14/2024 Hepatitis C Screening 11/14/2024 Social Influencers of Health Screening 11/14/2024 Influenza Vaccine (#1) 2025 HIB Vaccines Aged Out No longer [...] 5 Years) and At-Risk Patients (6 to 49 Years) Aged Out No longer eligible b ased on patient's age to complete this topic RSV Immunization Patients Un lela 20 months Aged Out No longer eligible b ased on patient's age to complete this topic Varicella Vaccines Aged Out No longer eligible based on patient's age to complete this [place] [address] Care Teams Music Cataloguer Relationship Specialty Start Date End Date Rashmi Rivera MD [address] [place] [address] , [address] [facility] D/B/A: [facility] [place], [place] PCP - General Internal Medicine 11/14/24
== END 2025-01-05 06:56 | disposition home or self-care (01) ==
LOC: HO.CT 06:55
PROVIDERS: PCP Internal Medicine; Visit Provider Physician Assistant Medical
DX: G43.E09 Chronic migraine with aura, not intractable, without status migrainosus (principal)
CPT/HCPCS: 70450

== ENCOUNTER → 2025-01-05 06:57 | Outpatient (BNV) | payer OTHER, SELFPAY | PROVIDERS: PCP Internal Medicine; Visit Provider Radiology Diagnostic Radiology | DX: G43.E09 Chronic migraine with aura, not intractable, without status migrainosus (principal) | CPT/HCPCS: 70450 ==

== ENCOUNTER 2025-01-11 08:40 | Outpatient (AMB) | payer OTHER, SELFPAY ==
--- NOTE | 2025-01-11 08:42 | MHC.OFFVIS ---
Vital Signs 01/11/25 08:46 Height 5 ft 9 in Weight 144 lb 6 oz BMI 21.3 BP 132/56 L Blood Pressure Location Rt brachial Position Sitting Pulse 80 Pulse Source Pulse Oximeter Pulse Oximetry (%) 99 Oxygen Delivery Method Room Air Intake Visit Reasons: MRI follow up Intake Note: Pain today 11/14 Hydroelectric Plant Operator Required: Yes Hydroelectric Plant Operator Language: Junior Project Manager Services: Hydroelectric Plant Operator Present Hydroelectric Plant Operator Name: Jenise # [id number] Information Interpreted: non-clinical & clinical Accompanied by: Self / Same As Patient Allergies No Known Allergies (No Known Allergies*) Allergy (Verified 01/11/25 08:48) HPI Comments Details: The patient is a 39-year-old male presenting for follow up and discuss recent lumbar spine MRI results. Patient continues to endorse persistent low back pain that radiates to the left leg, which worsens with bending over and when lying down or getting up. The pain is associated with a small disc herniation at left L4-L5 level, as confirmed by MRI results, noted below. The patient has not received injections before and is currently taking ibuprofen and baclofen for pain management with minimal and temporary relief. Physical therapy has been attempted but was not effective in alleviating symptoms. 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 Denies any recent cough, cold, infection, fever or any significant changes in medical history since last office visit. PRIOR: The patient is a 39-year-old male presenting with chronic low back pain with radiculopathy. The pain radiates to the left leg, causing numbness and tingling, and is exacerbated by bending. Physical therapy was attempted for two months with minimal relief, and current medications include ibuprofen and baclofen, which have limited effectiveness. The patient reports sleep disturbances due to pain and experiences heaviness and weakness in the left leg during activities. - Onset: Chronic, persistent pain - Quality: Sharp, shooting, radiating and throbbing pain - Location: Low back radiating to the left leg - Radiation: Left anterior and lateral lower leg - Exacerbating factors: Bending forward or backward, walking, prolonged standing, heavy lifting - Relieving factors: Minimal relief with rest, activity modifications, Baclofen, Ibuprofen, lidocaine patch, OTC topicals - Interference: Affects sleep and causes heaviness and weakness in the left leg - Affect: Pain impacts sleep and daily activities - Analgesia: Ibuprofen and baclofen used with limited relief - Adverse Effects: None reported - Activities of Daily Living: Pain causes heaviness and weakness in the left leg, affecting mobility - Aberrant Drug Related Behaviors: None reported PRIOR: Patient presents today for follow up for left sided radiculopathy. He was initially seen in November and was recommended to start PT prior to lumbar spine MRI per his insurance. Unfortunately, patient has not started formal PT within past 6 months. He was recently referred for PT by his PCP and Neurology for back and neck pain but has not started this yet. Back pain radiates into his left anterior and lateral lower leg with numbness, tingling and parasthesias in his lateral tabares and toes and left leg heaviness with prolonged walking or bending. Pain is slightly better at rest. Denies any recent cough, cold, infection, fever, bladder or bowel dysfunction, saddle anesthesia, or any significant changes in her medical history, medications or recent hospitalizations. PRIOR: Patient is a pleasant 38 years old Sinhala speaking male with history of migraines and depression, presents today for initial evaluation for low back pain with left-sided radicular symptoms. 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 Patient reports his back pain has been worsening with any heavy lifting, pulling, twisting or bending. He has tried Tylenol, NSAIDs, and [id number] topical applications with continued symptoms. Back pain is axial and also radiates to his left mid back in the left lower back, into his left sacral in the left lateral hip with radiation into his left anterior and lateral lower leg with numbness, tingling and cramping in his lateral tabares and toes. Patient reports left leg heaviness and paresthesias with prolonged walking or bending. Denies any previous finds injections or surgery. Pain affects his daily activities, functioning, sleep, and social interactions. Pain is rated at 8/10, constant and is worse in the mornings and evenings. Denies any fever, abdominal or groin pain, foot drop, weakness, bladder or bowel dysfunction or saddle anesthesia. Oswestry low back disability score=25 (severe disability) Location: Lower back radiates into left SIJ and LLE laterally and anteriorly Duration: Over one year after work related injury due to heavy lifting and pulling Characteristics of symptom or complaint: Radiating, dull, stabbing, tightness, sharp, numb, tingling, spasming Aggravating or associated factors: Movements, walking, bending, laying, heavy lifting, twisting, pulling Relieving factors: Walking, resting in curled up position, Tylenol, ice/heat, OTC topicals [facility] Medical History Chronic migraine with aura Cervical dystonia Hematuria Hypercholesterolemia Nocturia Mild major depression Sacroiliac joint pain Muscle spasm Lumbosacral spondylosis Lumbar back pain with radiculopathy affecting left lower extremity Asthma Encounter for physical examination Family history of hypertension Migraines Surgical History No history of previous surgery Family History Mother Hypertension Diabetes mellitus Father Hypertension CAD (coronary artery disease) Diabetes mellitus Social History Housing: House Alcohol intake: current Alcohol intake frequency: a few times a week Alcohol type: beer Patient Tobacco Use Status: Current someday Tobacco user Tobacco use type: Cigarette Cigarettes Per Day: 5 e-Cigarette/Vaping Use: Never Used Second Hand Smoke Exposure: Yes service: No Current occupational status: employed Current occupational exposures/hazards: No Cognitive needs: No Hearing needs: No Vision needs: No Review of Systems Const Details: - Musculoskeletal: Reports back pain radiating to the left leg, worsens with bending and positional changes - Neurological: Denies bladder or bowel dysfunction, weakness, or saddle anesthesia. All systems reviewed & are unremarkable except as noted in HPI and below Physical Exam Vital Signs: Last Vital Signs Pulse 80 01/11/25 08:46 BP 132/56 L 01/11/25 08:46 Pulse Ox 99 01/11/25 08:46 Oxygen Delivery Method Room Air 01/11/25 08:46 BMI result Body Mass Index 21.3 General: Appears afebrile. Alert and oriented. Mood and affect appropriate. Follows and participates in conversation appropriately. Respiratory effort is unlabored. No cough. Able to transition from sit to stand unassisted. Ambulates with bilaterally normal heel strike and toe off, reports increased pain on the left with heel standing. Neck Neck: Yes no lymphadenopathy, Yes supple, No anterior neck swelling and Yes no JVD General: Yes no CVA tenderness Back/Spine/Pelvis Other: Limited lumbar ROM due to pain. Mildly antalgic gait without limping. Lumbar flexion, bending forward reproduces moderate to severe pain, lumbar extension and axial rotations reproduce mild to moderate pain. Demonstrates 5/5 right and 4/5 left strength of quadriceps bilaterally as well as flexion/dorsiflexion of bilateral feet against resistance. 2+ pedal pulses bilaterally. Straight leg rise with dorsiflexion positive on the left. +2 patellar and achilles reflexes bilaterally. Facet loading test positive bilaterally. Shana sign, Long?s, Pelvic compression and Stinchfield tests are positive bilaterally, left>right. No groin pain with I/E hip rotations. Back: no CVA tenderness and back tenderness (left lower lumbar paraspinals and midline) Cervical Spine: normal cervical lordosis, cervical muscular tenderness, pain with cervical ROM, cervical spasm, No Cervical spine tenderness and No step off deformity Thoracic/Lumbar Spine: thoracic and lumbar spine normal to inspection, Thoracic/lumbar spine scar(s), Lasegue's sign positive on the left and localized, pain with thoraco-lumbar ROM, paraspinal muscle tenderness on the left in the lower thoracic, in the upper thoracic and in the mid lumbar, thoraco-lumbar spasm on the left, No thoracic spinal tenderness and lumbar spinal tenderness (L3-S1) Pelvis: buttock tenderness on the left Sacroiliac joints: bilaterally tender to palpation Extrem General: Yes capillary refill normal, Yes no clubbing, cyanosis or edema and Yes no calf tenderness Results Reviewed Results Reviewed: XR LUMBOSACRAL SPINE 05/28/23 CLINICAL INFORMATION: Low back pain. COMPARISON: 05/27/2022 FINDINGS: There are five segmented vertebra of the lumbar spine. The lumbar vertebra have normal height and alignment. The disc spaces are maintained. 5 degrees of dextrocurvature is measured from the superior endplate of T12 to the inferior plate of L4. Sacrum and sacroiliac joints are normal. Soft tissues are unremarkable. No specific source of pain is identified. IMPRESSION: No evidence of degenerative disc disease, fracture or malalignment. There are no significant radiographic findings within the lumbar spine. XR SACROILIAC JOINTS 11/19/23 CLINICAL INFORMATION: Sacrococcygeal disorders COMPARISON: CT scan the abdomen and pelvis July 2023 FINDINGS: soft tissues are normal. No fracture. Alignment is anatomic. Sacroiliac joint spaces are well-maintained without erosions or surrounding sclerosis. Circular appearing sclerosis in the left femoral neck likely related to the femoral necks cyst measuring approximately 1 cm. This is unchanged compared with recent CT IMPRESSION: 1. Normal sacroiliac joints. 2. Stable benign-appearing sclerosis in the left femoral neck likely related to the femoral neck cyst better characterized on recent CT. MR lumbar spine wo con 12/09/24 Comparison: CR/SR - XR LUMBAR SPINE 2-3V - 05/28/23 14:03 EST Findings: No scoliosis or spondylolisthesis. No acute fracture or pathologic bone lesion. Cauda equina and conus medullaris within normal limits. There is disc desiccation at the L4-5 level and mildly at the L5-S1 level. There is no significant loss of height. At L4-L5 there is a minimal left paracentral disc protrusion and annular tear. There is minimal deformity of the dural sac. There is no neural foraminal narrowing noted. Paraspinous musculature intact. A small right S1 perineural cyst is present. The rest of the discs are unremarkable. All neural foramina are patent. IMPRESSION: 1. Minimal left paracentral disc protrusion at L4-5 with annular tear. 2. Tiny right perineural cyst involving S1. Assessment & Plan Assessment & Plan (1) Low back pain: Code(s): M54.50 - Low back pain, unspecified Category: Medical (2) Sacroiliac joint pain: Code(s): M53.3 - Sacrococcygeal disorders, not elsewhere classified Category: Medical (3) Lumbosacral spondylosis: Code(s): M47.817 - Spondylosis without myelopathy or radiculopathy, lumbosacral region Category: Medical (4) Lumbar back pain with radiculopathy affecting left lower extremity: Code(s): M54.16 - Radiculopathy, lumbar region Category: Medical Plan Lumbar spine MRI results were discussed with patient today. Schedule Left L4-L5 TFESI with local, oral Ativan and fluoroscopy to provide symptomatic relief for the lumbar disc herniation and radicular symptoms. Expectations, risks and benefits were reviewed. Patient is aware he will be contacted to schedule this procedure. All questions and concerns have been answered and patient agreed with the plan. Follow up after injection and sooner as needed. Patient was informed and verbally consented to the use of an ambient scribe for clinic note documentation during this visit. Coding Level of Care Code Est Pt Level 4 (84877) Complex EM visit Add On G2211 Diagnoses Low back pain M54.50 Sacroiliac joint pain M53.3 Lumbosacral spondylosis M47.817 Lumbar back pain with radiculopathy affecting left lower extremity M54.16
[2025-01-11 08:46] VITALS: BP 132/56; PULSE 80; O2SAT 99; BMI 21.3
--- OUTSIDE RECORDS SUMMARY | 2025-01-11 08:54 | XMS_ITS | Clinical Summary ---
Author Organization [address] [facility] Address [address] [place] [address] Phone Care Team Providers Care Cook Railroad Name Role Phone Rashmi Rivera MD Primary Care Provider [phone] Social History Tobacco Use Types Packs/Day Years Used Date Smoking Tobacco: Never Assessed Sex and Gender Information Value Date Recorded Sex Assigned at Not on file Legal Sex Male 9:28 AM EDT Gender Identity Not on file Sexual Orientation Not on file Plan of Treatment Upcoming Encounters Date Type Department Care Team ([facility] st Contact Info) Description 02/01/2025 8:30 AM EDT Consult Orthopedic Surgery - [place] [id number] [phone] Kp Grimaldo DPM [address] [address] Health Maintenance Due Date Last Done Comments [...] complete this topic Insurance PLAN Care Teams Cook Railroad Relationship Specialty Start Date End Date Rashmi Rivera MD [address] [place] [address] , [address] [facility] D/B/A: [facility] [place], [place] PCP - General Internal Medicine 11/14/24
== END 2025-01-11 09:09 | disposition home or self-care (01) ==
LOC: HO.PMC 08:40
PROVIDERS: PCP Internal Medicine; Visit Provider Nurse Practitioner Family
DX: M54.50 Low back pain, unspecified (principal); M53.3 Sacrococcygeal disorders, not elsewhere classified; M47.817 Spondylosis without myelopathy or radiculopathy, lumbosacral region; M54.16 Radiculopathy, lumbar region
CPT/HCPCS: 99214

== ENCOUNTER → 2025-01-11 08:40 | Outpatient (BNVA) | payer OTHER, SELFPAY | PROVIDERS: PCP Internal Medicine; Visit Provider Nurse Practitioner Family | DX: Z71.2 Person consulting for explanation of examination or test findings (principal); M54.50 Low back pain, unspecified; M53.3 Sacrococcygeal disorders, not elsewhere classified; M47.816 Spondylosis without myelopathy or radiculopathy, lumbar region; M54.16 Radiculopathy, lumbar region | CPT/HCPCS: 99212 ==

== ENCOUNTER 2025-01-15 08:10 | Outpatient (AMB) | payer OTHER, SELFPAY ==
--- NOTE | 2025-01-15 08:14 | MHC.OFFVIS ---
Intake Visit Reasons: 6 month follow up/ PVR Intake Note: Patient presents today for 6m follow up/PVR Urology Medications: Oxybutynin Blood Thinner: none PVR:50ml Auditor Required: Yes Auditor Services: Auditor Present Auditor Name: Estelle [id number] Accompanied by: Self / Same As Patient Allergies No Known Allergies (No Known Allergies*) Allergy (Verified 01/15/25 08:50) Medication List - Last Reconciled 01/15/25 by BHAVANA Jacobson alpha lipoic acid 100 mg PO DAILY 3 months MDD 100mg amitriptyline 50 mg (2 x 25 mg) PO BEDTIME 90 days MDD 50mg baclofen 5 mg PO BEDTIME 3 months MDD 5mg cholecalciferol (vitamin D3) 125 mcg PO DAILY 3 months MDD 125mcg ibuprofen 800 mg PO Q8H PRN 30 days lidocaine 5% 1 patch topically; magnesium oxide 400 mg PO DAILY oxybutynin chloride ER 5 mg PO DAILY 90 days rizatriptan 10 mg PO .onset PRN MDD 20mg HPI Comments Details: Brijesh is a very pleasant 38-year-old Korean-speaking male patient of Dr. Price. He has a past medical history of migraines. He presents to the office today for follow-up of his lower urinary tract symptoms. In discussion with the patient today he reports to be doing and feeling well. He denies having had any bothersome urinary issues or concerns since his last office visit here. He reports compliance with oxybutynin as prescribed in discusses feeling this has been helpful in episodes of nocturia. He has previously trialed terazosin and Flomax with minimal improvement. Previous workup has included an in office cystoscopy with Dr. Adamson 05/30 that was normal. Previous workup has also included a home sleep study noted no sleep apnea. However, moderate/severe snoring was noted. CT urogram 07/31 that noted bilateral kidneys are normal in size, shape, and attenuation. No hydronephrosis, hydroureter, or calculi seen. At the interpolar aspect of the left kidney a 9 mm benign simple cyst is seen which requires no imaging follow-up per radiology report. The bladder is unremarkable. Bladder ultrasound 09/28 notes the bladder is well distended and normal. Bilateral ureteral jets are demonstrated. Pre void bladder volume is approximately 400 mL. Postvoid bladder volume is approximately 5 mL. Prostate volume is approximately 22 mL. Unremarkable bladder ultrasound. In office urinalysis results reviewed with the patient today. PVR 71ml's. When asked he denies any bothersome urinary issues. He denies urinary urgency, urinary frequency, incontinence, nocturia, hematuria, dysuria, foul smelling urine, changes to urinary stream, flank pain, fever, and or chills. He is happy with his current voiding parameters. He otherwise offers no other issues or concerns at this time. [facility] Medical History Chronic migraine with aura Cervical dystonia Hematuria Hypercholesterolemia Nocturia Mild major depression Sacroiliac joint pain Muscle spasm Lumbosacral spondylosis Lumbar back pain with radiculopathy affecting left lower extremity Asthma Encounter for physical examination Family history of hypertension Migraines Surgical History No history of previous surgery Family History Mother Hypertension Diabetes mellitus Father Hypertension CAD (coronary artery disease) Diabetes mellitus Social History Housing: House Alcohol intake: current Alcohol intake frequency: a few times a week Alcohol type: beer Patient Tobacco Use Status: Current someday Tobacco user Tobacco use type: Cigarette Cigarettes Per Day: 5 e-Cigarette/Vaping Use: Never Used Second Hand Smoke Exposure: Yes service: No Current occupational status: employed Current occupational exposures/hazards: No Cognitive needs: No Hearing needs: No Vision needs: No Review of Systems Const All systems reviewed & are unremarkable except as noted in HPI and below Reports no additional complaints Eyes Reports no additional complaints ENT Reports no additional complaints Card Reports no additional complaints Resp Reports no additional complaints GI Reports no additional complaints Reports as per HPI Musc Reports no additional complaints Neuro Reports as per HPI Psych Reports no additional complaints Endo Reports no additional complaints Ezra/Lymph Reports no additional complaints Aller/Immun Reports no additional complaints Physical Exam Const General: cooperative, healthy appearing, comfortable, no acute distress, well developed, alert and awake Orientation/consciousness: patient oriented x3 Limitations: language barrier HEENT Head: Yes normal to inspection, Yes normocephalic and Yes atraumatic Ears: hearing grossly normal bilaterally Eyes General: appearance normal, both eyes and all related structures Neck Neck: Yes normal visual inspection and Yes trachea midline Chest Chest palpation & inspection: normal inspection of the chest Resp Effort & Inspection: normal respiratory effort and able to speak in complete sentences Cardio Rate: regular rate GI Inspection: Yes normal to inspection General: Yes no CVA tenderness Back/Spine/Pelvis Back: no CVA tenderness Skin General skin exam: no rashes or lesions noted Neuro General: patient oriented x3 Extrem General: Yes normal to inspection Psych Appearance: grossly normal and well kempt Mental Status: mental status grossly normal Speech and movement: Normal speech and movement present and Clear speech present Affect: normal affect Attitude: cooperative Thought process: Normal thought process present Thought content: Normal thought content present Insight: Fair insight present (Psych) Judgement: Fair judgement present (Psych) Office Procedures Post Void Residual Post Residual Void Post Void Residual (PVR): 71 [id number] Void Residual by ultrasound Results AMB Urinalysis, Automated UA Leukoctes 0 Edwin/uL Last Edit by Yamel Tineo on 01/15/25 14:40 UA Nitrite Negative Last Edit by Yamel Tineo on 01/15/25 14:40 UA Urobilinogen 17 mg/dL Last Edit by Yamel Tineo on 01/15/25 14:40 UA Protein 0 mg/dL Last Edit by Yamel Tineo on 01/15/25 14:40 UA pH 6.0 Last Edit by Yamel Tineo on 01/15/25 14:40 UA Blood 0 Ed/uL Last Edit by Yamel Tineo on 01/15/25 14:40 UA Specific Commerce 1.010 Last Edit by Yamel Tineo on 01/15/25 14:40 UA Ketone Negative Last Edit by Yamel Tineo on 01/15/25 14:40 UA Bilirubin 0 mg/dL Last Edit by Yamel Tineo on 01/15/25 14:40 UA Glucose 0 mg/dL Last Edit by Yamel Tineo on 01/15/25 14:40 Results Reviewed Results Reviewed: Laboratory Last Values Urine pH (Auto) 6.0 01/15/25 12:48 Specific Commerce (Auto) 1.010 01/15/25 12:48 Urine Protein (Auto) 0 mg/dL 01/15/25 12:48 Glucose (UA)(Auto) 0 mg/dL 01/15/25 12:48 Urine Ketones (Auto) Negative 01/15/25 12:48 Urine Blood (Auto) 0 Ed/uL 01/15/25 12:48 Urine Nitrite (Auto) Negative 01/15/25 12:48 Urine Bilirubin (Auto) 0 mg/dL 01/15/25 12:48 Urine Urobilinogen (Auto) 17 mg/dL 01/15/25 12:48 Leukocyte Esterase (Auto) 0 Edwin/uL 01/15/25 12:48 Assessment & Plan Assessment & Plan (1) Urinary frequency: Code(s): R35.0 - Frequency of micturition Category: Medical (2) Nocturia: Code(s): R35.1 - Nocturia Category: Medical Plan In office urinalysis results reviewed with the patient today; as noted above. PVR 71 mL. We discussed continuation of limiting fluids 2-3 hours prior to bed to assist with decreasing episodes of nocturia. Continue oxybutynin as discussed and prescribed; refill provided. Patient reports be happy with current voiding parameters. We discussed bladder triggers/irritants. He denies any bothersome urinary issues or concerns Follow-up in 6 months with PSA and PVR; or sooner with any issues, concerns, and or questions. Orders: Orders AMB Urinalysis Automated 01/15/25 R35.0 - Frequency of micturition, R35.1 - Nocturia AMB Post Void Residual by ultrasound 01/15/25 R35.0 - Frequency of micturition, R35.1 - Nocturia Medications: Refilled oxybutynin chloride ER 5 mg PO DAILY 90 tabs 3RF 90 days Patient Instructions: The patient had an opportunity to ask questions regarding the treatment plan. All questions were answered. Physical exam, labs, and imaging were discussed and reviewed in detail. As well as risks, benefits, and discussion of treatment choices. No major barriers to understanding were identified. The patient expressed understanding and agreement with the above treatment plan. The patient was made aware they should contact our office by phone for worsening of their current condition, the appearance of new symptoms, or with any questions or concerns. Compliance is encouraged with any medications and follow up testing that is ordered. It is a privilege to be allowed the opportunity to participate in? your urological care.? Again, if you have any questions or concerns If you have any questions or concerns please do not hesitate to contact me. The office is [phone]. This note is constructed using voice recognition software. While every effort has been made to ensure accuracy instrument and control technician errors may have been included. Yours sincerely, NEMESIO Jacobson-MOLLY Coding Level of Care Code Est Pt Level 3 (30739) Diagnoses Urinary frequency R35.0 Nocturia R35.1 CPT Codes Post Residual Void - PVR CPT Code: [id number] Void Residual by ultrasound ([id number])
--- OUTSIDE RECORDS SUMMARY | 2025-01-15 08:23 | XMS_ITS | Clinical Summary ---
Author Organization 175 [facility] Address [address] [place] [address] Phone Care Team Providers Care Credit Administration Manager Name Role Phone Rashmi Rivera MD Primary Care Provider [phone] Social History Tobacco Use Types Packs/Day Years Used Date Smoking Tobacco: Never Assessed Sex and Gender Information Value Date Recorded Sex Assigned at Not on file Legal Sex Male 9:28 AM EDT Gender Identity Not on file Sexual Orientation Not on file Plan of Treatment Upcoming Encounters Date Type Department Care Team ([facility] st Contact Info) Description 02/01/2025 8:30 AM EDT Consult Orthopedic Surgery - [place] [address] [phone] Kp Grimaldo DPM [address] [address] Health Maintenance Due Date Last Done Comments [...] complete this topic Insurance PLAN Care Teams Credit Administration Manager Relationship Specialty Start Date End Date Rashmi Rivera MD [address] [place] [address] , [address] [facility] D/B/A: [facility] [place], [place] PCP - General Internal Medicine 11/14/24
== END 2025-01-15 08:49 | disposition home or self-care (01) ==
LOC: HO.HUSH 08:11
PROVIDERS: PCP Internal Medicine; Visit Provider Nurse Practitioner Family
DX: R35.0 Frequency of micturition (principal); R35.1 Nocturia
CPT/HCPCS: 99213

== ENCOUNTER → 2025-01-15 08:10 | Outpatient (BNVA) | payer OTHER, SELFPAY | PROVIDERS: PCP Internal Medicine; Visit Provider Nurse Practitioner Family | DX: R35.0 Frequency of micturition (principal); R35.1 Nocturia | CPT/HCPCS: 51798; 81003; 99212 ==

== ENCOUNTER 2025-02-08 06:27 | Outpatient (REF) | payer OTHER, SELFPAY ==
--- NOTE | ~2025-02-08 | FL_ITS ---
EXAMINATION: XR FLUOROSCOPY WITH IMAGES CLINICAL INFORMATION: Lumbar pain management. COMPARISON: MR lumbar 12/09/2024. TECHNIQUE: Fluoroscopy provided to: Dr. Hagan Fluoroscopy time: 0.2 minutes DAP: 0.0147 mGycm2 Images: 3 FINDINGS: 3 fluoroscopic spot images obtained during lumbar pain management procedure. Please refer to the full operative report for details. FL/FL guidance in treatment room IMPRESSION: Fluoroscopic guidance. Electronically signed by: Indra Solorio MD 02/08/2025 02:01 PM EDT
--- OUTSIDE RECORDS SUMMARY | 2025-02-08 06:30 | XMS_ITS | Clinical Summary ---
Author Organization [address] [place] [address] Address [address] [place] [address] Phone Care Team Providers Care Novelty Maker Name Role Phone Rashmi Rivera MD Primary Care Provider [phone] Allergies No known active allergies Encounters Date Type Department Care Team Description 02/01/2025 8:30 AM EDT Consult Orthopedic [place] [id number] [phone] Kp Grimaldo DPM Hammertoes of both feet (Primary Dx); Pain in toes of both feet; Eccrine poroma of foot, right; Corns and callosities from Last 3 Months Social History Tobacco Use Types Packs/Day Years Used Date Smoking Tobacco: Never Assessed Sex and Gender Information Value Date Recorded Sex Assigned at Not on file Legal Sex Male 9:28 AM EDT Gender Identity Not on file Sexual Orientation Not on file Plan of Treatment Upcoming Encounters Date Type Department Care Team ([facility] st Contact Info) Description 03/29/2025 8:30 AM EDT Office Visit Orthopedic [place] [id number] [phone] Kp Grimaldo DPM [address] [address] Health Maintenance Due Date Last Done Comments Hepatitis B Vaccines (1 of 3 - 19+ 3-dose series) 2004 Depression Screening 06/07/2024 Cholesterol Screening (Lipid Panel) 11/14/2024 HIV Screening 11/14/2024 Hepatitis C Screening 11/14/2024 Social Influencers of Health Screening 11/14/2024 COVID-19 Vaccine (3 - 2024-2 6 season) 2025 09/24/2021, 06/05/2021 Influenza Vaccine (#1) 2025 3, 03/19/2017, 05/15/2015 DTaP,Tdap,and Td Vaccines (2 - Td or Tdap) 01/30/2029 01/30/2019 HIB Vaccines Aged Out No longer eligi [...] age to complete this topic Pneumococcal Vaccine: Pediatrics (0 to 5 Years) and At-Risk Patients (6 to 49 Years) Aged Out No longer eligible b ased on patient's age to complete this topic RSV Immunization Patients Under 20 months Aged Out No longer eligible b ased on patient's age to complete this topic Varicella Vaccines Aged Out No longer eligible based on patient's age to complete this topic Insurance MEDICAID - [place] Care Teams Novelty Maker Relationship Specialty Start Date End Date Rashmi Rivera MD [address] [place] [address] , [address] [facility] D/B/A: [facility] [place], [place] PCP - General Internal Medicine 11/14/24
== END 2025-02-08 06:28 | disposition home or self-care (01) ==
LOC: CF 06:27
PROVIDERS: Visit Provider Internal Medicine
DX: M54.16 Radiculopathy, lumbar region (principal)
CPT/HCPCS: 64483; J1100; J2003; Q9967

== ENCOUNTER 2025-02-08 10:04 | Outpatient (AMB) | payer OTHER, SELFPAY ==
--- NOTE | 2025-02-08 10:21 | A.OFFVIS_ITS ---
Vital Signs 02/08/25 10:22 02/08/25 11:24 BP 112/78 118/84 Blood Pressure Location Lt brachial Lt brachial Position Sitting Sitting Respiration 16 16 Pulse 83 85 Pulse Source Pulse Oximeter Pulse Oximeter Pulse Oximetry (%) 98 99 Oxygen Delivery Method Room Air Room Air Intake Visit Reasons: Left L4-L5 TFESI/ Ativan Hand Packer/Packager Required: Yes Hand Packer/Packager Services: Hand Packer/Packager Present Hand Packer/Packager Name: Darin [id number] Allergies No Known Allergies (No Known Allergies*) Allergy (Verified 02/08/25 10:22) Medication List - Last Reconciled 02/08/25 by Precious Brown LPN alpha lipoic acid 100 mg PO DAILY 3 months MDD 100mg amitriptyline 50 mg (2 x 25 mg) PO BEDTIME 90 days MDD 50mg baclofen 5 mg PO BEDTIME 3 months MDD 5mg cholecalciferol (vitamin D3) 125 mcg PO DAILY 3 months MDD 125mcg ibuprofen 800 mg PO Q8H PRN 30 days lidocaine 5% 1 patch topically; lorazepam (Ativan) 1 mg PO ONCE magnesium oxide 400 mg PO DAILY oxybutynin chloride ER 5 mg PO DAILY 90 days rizatriptan 10 mg PO .onset PRN MDD 20mg HPI HPI Left L4-L5 TFESI/ Ativan: Details: Patient presents for scheduled procedure. Denies any recent cough, cold, infection, fever or other significant changes in medical history since last office visit. [facility] Medical History Chronic migraine with aura Cervical dystonia Hematuria Hypercholesterolemia Nocturia Mild major depression Sacroiliac joint pain Muscle spasm Lumbosacral spondylosis Lumbar back pain with radiculopathy affecting left lower extremity Asthma Encounter for physical examination Family history of hypertension Migraines Surgical History No history of previous surgery Family History Mother Hypertension Diabetes mellitus Father Hypertension CAD (coronary artery disease) Diabetes mellitus Social History Housing: House Alcohol intake: current Alcohol intake frequency: a few times a week Alcohol type: beer Patient Tobacco Use Status: Current someday Tobacco user Tobacco use type: Cigarette Cigarettes Per Day: 5 e-Cigarette/Vaping Use: Never Used Second Hand Smoke Exposure: Yes service: No Current occupational status: employed Current occupational exposures/hazards: No Cognitive needs: No Hearing needs: No Vision needs: No Physical Exam Vital Signs: Last Vital Signs Pulse 85 02/08/25 11:24 Resp 16 02/08/25 11:24 BP 118/84 02/08/25 11:24 Pulse Ox 99 02/08/25 11:24 Oxygen Delivery Method Room Air 02/08/25 11:24 Office Procedures Details: Transforaminal epidural steroid injection, Left L4/5 After obtaining written consent, pre-procedure blood pressure and heart rate were stable and recorded in the nursing record. The patient was placed in the prone position on the fluoroscopy table. The lumbosacral area was prepped with chloraprep, allowed to dry and draped in sterile fashion. Using fluoroscopy, the skin overlying our target was anesthetized with 0.5% lidocaine. A 22 gauge 3.5 inch spinal needle was advanced to the safe triangle in the upper pole of the left L4 foramen. No paresthesias were elicited with needle placement and aspiration was negative for blood and CSF. Correct needle position was confirmed with approximately 1 ml contrast dye (Omnipaque 180 mg/ml) injected under real-time fluoroscopy. No evidence of vascular or intrathecal uptake was seen and there was both epidural and peripheral spread of the contrast agent. 10 mg dexamethasone plus 1 ml containing 0.5% lidocaine was slowly injected. The needle was flushed and removed. The skin was cleansed and a sterile bandages were applied. The patient tolerated the procedure well and no complications were encountered. Following the procedure the patient's vital signs were stable. The patient was discharged home in good condition with post-procedural instructions. Time Out: Immediately prior to the procedure, the following was verbally confirmed that there is a signed consent form and that the correct patient, planned procedure, site and side are consistent with documentation and that necessary equipment and/or blood products are available prior to the start of the case. Complications: none EBL: <5 cc 76209 - Lumbar/Sacral Procedure code (CPT) selection complete Assessment & Plan Assessment & Plan (1) Lumbar back pain with radiculopathy affecting left lower extremity: Code(s): M54.16 - Radiculopathy, lumbar region Category: Medical Plan Patient is status post left L4 TFESI. Patient tolerated procedure well and was discharged home in stable condition with discharge instructions. All questions were answered. We will follow-up via telephone or in clinic to assess response to therapy. A follow-up appointment was made during today's visit. Orders: Orders FL guidance in treatment room Today Leelee Fairchild APRN, INVESTIGATIONS CHIEF M54.16 - Radiculopathy, lumbar region AMB Transforaminal Epidural Steroid Injection Today Samuel Hagan MD M54.16 - Radiculopathy, lumbar region Medications: New lorazepam (Ativan) Take 30 minutes prior to arrival to procedure 1 mg PO ONCE 1 tab 0RF anxiety Leelee Fairchild APRN, INVESTIGATIONS CHIEF Coding Level of Care Code Procedure Only Diagnoses Lumbar back pain with radiculopathy affecting left lower extremity M54.16 CPT Codes Transforaminal Epidural Steroid Inj - TESI 3: 75320 - Lumbar/Sacral ([id number])
[2025-02-08 10:22] VITALS: BP 112/78; PULSE 83; RESP 16; O2SAT 98
[2025-02-08 11:24] VITALS: BP 118/84; PULSE 85; RESP 16; O2SAT 99
== END 2025-02-08 11:27 | disposition home or self-care (01) ==
LOC: HO.PMCPRC 10:04
PROVIDERS: PCP Internal Medicine; Visit Provider Internal Medicine
DX: M54.16 Radiculopathy, lumbar region (principal)
CPT/HCPCS: 64483

== ENCOUNTER 2025-02-22 08:44 | Outpatient (AMB) | payer OTHER, SELFPAY ==
[2025-02-22 09:06] VITALS: BP 116/82; PULSE 86; O2SAT 99; BMI 21.8
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
== END 2025-02-22 09:53 | disposition home or self-care (01) ==
LOC: HO.HSMS 08:45
PROVIDERS: PCP Internal Medicine; Visit Provider Physician Assistant Medical
DX: G47.19 Other hypersomnia (principal); G43.E09 Chronic migraine with aura, not intractable, without status migrainosus; G24.3 Spasmodic torticollis
CPT/HCPCS: 99214

== ENCOUNTER → 2025-02-22 08:44 | Outpatient (BNVA) | payer OTHER, SELFPAY | PROVIDERS: PCP Internal Medicine; Visit Provider Physician Assistant Medical | DX: G47.19 Other hypersomnia (principal); G43.E09 Chronic migraine with aura, not intractable, without status migrainosus; G24.3 Spasmodic torticollis | CPT/HCPCS: 99212 ==

== ENCOUNTER 2025-03-09 11:08 | Outpatient (AMB) | payer OTHER, SELFPAY ==
--- NOTE | 2025-03-09 11:25 | MHC.OFFVIS ---
Vital Signs 03/09/25 11:39 Height 5 ft 9 in Weight 147 lb BMI 21.7 BP 106/86 Blood Pressure Location Lt brachial Position Sitting Respiration 16 Pulse 65 Pulse Source Pulse Oximeter Pulse Oximetry (%) 99 Oxygen Delivery Method Room Air Intake Visit Reasons: S/P Left L4-L5 TFESI Office Technology Professor Required: Yes Office Technology Professor Services: Office Technology Professor Present Office Technology Professor Name: Mili Allergies No Known Allergies (No Known Allergies*) Allergy (Verified 03/09/25 11:40) Medication List - Last Reconciled 03/09/25 by Precious Brown LPN alpha lipoic acid 100 mg PO DAILY 3 months MDD 100mg amitriptyline 50 mg (2 x 25 mg) PO BEDTIME 90 days MDD 50mg baclofen 5 mg PO BEDTIME 3 months MDD 5mg cholecalciferol (vitamin D3) 250 mcg PO QWEEK 3 months MDD 1250mcg ibuprofen 800 mg PO Q8H PRN 30 days lidocaine 5% 1 patch topically; magnesium oxide 400 mg PO DAILY oxybutynin chloride ER 5 mg PO DAILY 90 days rizatriptan 10 mg PO .onset PRN MDD 20mg HPI HPI S/P Left L4-L5 TFESI: Details: History of Present Illness The patient is a 39-year-old male presenting for follow-up after a left L4 transforaminal epidural steroid injection. The patient reports that the injection did not alleviate his pain and instead exacerbated it, causing more discomfort. He continues to experience pain radiating down the back of his leg, indicating persistent left lumbar radicular symptoms. Post-injection, the patient experienced a fever, although it was noted that the injection should not cause fever, suggesting it might be coincidental. 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 He is cautious about lifting heavy objects and has adjusted his lifting techniques to mitigate strain on his back. Pain Description - Onset and Timing: Pain persists post-injection, exacerbated rather than relieved. - Quality and Character: Pain radiates down the back of the leg, consistent with radicular symptoms. - Primary Location: Left lumbar region with radiation to the leg. - Exacerbating Factors: Injection increased pain. - Relieving Factors: Adjusted lifting techniques to reduce strain. Physical Exam - Appears afebrile. - Alert and oriented. - Mood and affect appropriate. - Follows and participates in conversation appropriately. - Respiratory effort is unlabored. Pain Management - Affect: Pain impacts daily activities and work. - Analgesia: Previous injection did not provide relief; considering alternative approaches. - Adverse Effects: Fever post-injection, though not directly linked to the procedure. - Activities of Daily Living: Limited ability to lift heavy objects; advised to lift no more than 20 pounds. [facility] Medical History Chronic migraine with aura Cervical dystonia Hematuria Hypercholesterolemia Nocturia Mild major depression Sacroiliac joint pain Muscle spasm Lumbosacral spondylosis Lumbar back pain with radiculopathy affecting left lower extremity Asthma Encounter for physical examination Family history of hypertension Migraines Surgical History No history of previous surgery Family History Mother Hypertension Diabetes mellitus Father Hypertension CAD (coronary artery disease) Diabetes mellitus Social History Housing: House Alcohol intake: current Alcohol intake frequency: a few times a week Alcohol type: beer Patient Tobacco Use Status: Current someday Tobacco user Tobacco use type: Cigarette Cigarettes Per Day: 5 e-Cigarette/Vaping Use: Never Used Second Hand Smoke Exposure: Yes service: No Current occupational status: employed Current occupational exposures/hazards: No Cognitive needs: No Hearing needs: No Vision needs: No Physical Exam Vital Signs: Last Vital Signs Pulse 65 03/09/25 11:39 Resp 16 03/09/25 11:39 BP 106/86 03/09/25 11:39 Pulse Ox 99 03/09/25 11:39 Oxygen Delivery Method Room Air 03/09/25 11:39 BMI result Body Mass Index 21.7 Assessment & Plan Assessment & Plan (1) Lumbar back pain with radiculopathy affecting left lower extremity: Code(s): M54.16 - Radiculopathy, lumbar region Category: Medical Plan Plan Patient was informed and verbally consented to the use of an ambient scribe for clinic note documentation during this visit. 1. Left Lumbar Radicular Pain - Plan to attempt another epidural steroid injection with a different approach, specifically a left parasagittal interlaminar L4-5 TACOS. - If the new injection does not provide relief, consider surgical options for lumbar disc degeneration. - Provided a work accommodation note limiting lifting to 20 pounds. Discussion Notes I discussed with the patient the lack of relief from the previous injection and proposed trying a different approach with a left parasagittal interlaminar L4-5 TACOS. I explained that if this does not help, surgical options may be considered for lumbar disc degeneration. The patient was informed about the importance of proper lifting techniques and was provided with a work accommodation note limiting lifting to 20 pounds. Patient Instructions - Follow up with the clinic after the next injection to assess its effectiveness. - Limit lifting to no more than 20 pounds to prevent exacerbating back pain. - Monitor for any unusual symptoms post-injection and report them to the clinic. Coding Level of Care Code Est Pt Level 3 (69247) Diagnoses Lumbar back pain with radiculopathy affecting left lower extremity M54.16
[2025-03-09 11:39] VITALS: BP 106/86; PULSE 65; RESP 16; O2SAT 99; BMI 21.7
--- OUTSIDE RECORDS SUMMARY | 2025-03-09 12:24 | XMS_ITS | Clinical Summary ---
Author Organization [address] [place] [address] Address [address] [place] [address] Phone Care Team Providers Care Fiberglass Boat Builder Name Role Phone Rashmi Rivera MD Primary Care Provider [phone] Allergies No known active allergies Encounters Date Type Department Care Team Description 02/01/2025 8:30 AM EDT Consult Orthopedic [place] [address] [phone] Kp Grimaldo DPM Hammertoes of both feet [...] Upcoming Encounters Date Type Department Care Team ([facility] st Contact Info) Description 03/29/2025 8:30 AM EDT Office Visit Orthopedic [place] [address] [phone] Kp Grimaldo DPM [address] [address] Health Maintenance Due Date Last Done Comments [...] (2 - Td or Tdap) 01/30/2029 01/30/2019 RSV Immunization Adult Patients (1 - 1-dose 75+ series) 2060 HIB Vaccines Aged Out No longer eligi [...] topic Insurance MEDICAID - [place] Care Teams Fiberglass Boat Builder Relationship Specialty Start Date End Date Rashmi Rivera MD [address] [place] [address] , [address] [facility] D/B/A: [facility] JUAN CARLOS Rogers PCP - General Internal Medicine 11/14/24
== END 2025-03-09 12:03 | disposition home or self-care (01) ==
LOC: HO.PMC 11:09
PROVIDERS: PCP Internal Medicine; Visit Provider Internal Medicine
DX: M54.16 Radiculopathy, lumbar region (principal)
CPT/HCPCS: 99213

== ENCOUNTER → 2025-03-09 11:08 | Outpatient (BNVA) | payer OTHER, SELFPAY | PROVIDERS: PCP Internal Medicine; Visit Provider Internal Medicine | DX: M54.16 Radiculopathy, lumbar region (principal) | CPT/HCPCS: 99212 ==

== ENCOUNTER → 2025-03-22 20:30 | Outpatient (REF) | payer OTHER, SELFPAY | LOC: HO.SL 20:30 | PROVIDERS: PCP Internal Medicine; Visit Provider Physician Assistant Medical | DX: G47.19 Other hypersomnia (principal) | CPT/HCPCS: 95810 ==

== ENCOUNTER → 2025-03-22 21:24 | Outpatient (BNV) | payer OTHER, SELFPAY | PROVIDERS: PCP Internal Medicine; Visit Provider Psychiatry & Neurology Neurology | DX: R40.0 Somnolence (principal) | CPT/HCPCS: 95810 ==

== ENCOUNTER 2025-05-16 07:36 | Outpatient (AMB) | payer OTHER, SELFPAY ==
[2025-05-16 07:51] VITALS: BP 118/72; PULSE 76; O2SAT 98; BMI 22.4
--- NOTE | 2025-05-16 07:51 | MHC.PC.OV ---
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: No Accompanied by: Self / Same As Patient Allergies No Known Allergies (No Known Allergies*) Allergy (Verified 05/16/25 08:02) Medication List - Last Reconciled 05/16/25 by Rashmi Rivera MD alpha lipoic acid 100 mg PO DAILY 3 months MDD 100mg amitriptyline 50 mg (2 x 25 mg) PO BEDTIME 90 days MDD 50mg baclofen 5 mg PO BEDTIME 3 months MDD 5mg cholecalciferol (vitamin D3) 250 mcg PO QWEEK 3 months MDD 1250mcg ibuprofen 800 mg PO Q8H PRN 30 days lidocaine 5% 1 patch topically; magnesium oxide 400 mg PO DAILY oxybutynin chloride ER 5 mg PO DAILY 90 days rizatriptan 10 mg PO .onset PRN MDD 20mg Tobacco use date assessed: 11/13/24 Dental Screening Dental Screen Date: 11/13/24 HPI HPI Comments History of Present Illness Details The patient is a 39-year-old male presenting for management of his chronic conditions. He has a history of migraines, which are reportedly more or less controlled and for which he sees a neurologist. His medications for migraines include amitriptyline at night and rizatriptan, which he reports are working. Mild major depression is well controlled with amitriptyline. The patient is managed by a paint grinder for back pain and is scheduled for another injection tomorrow. A lumbar spine MRI showed minimal disc protrusion. Past medical history also includes urinary incontinence, which is being managed. A prior sleep apnea study was negative. He smokes about 5 cigarettes per day and drinks beer a couple of times a week. The patient is not allergic to any medications. His current medications include alpha-lipoic acid, amitriptyline, baclofen, and rizatriptan. [facility] Medical History (Updated 05/16/25 @ 08:14 by Rashmi Rivera MD) Mild major depression Chronic migraine with aura Cervical dystonia Hematuria Hypercholesterolemia Nocturia Sacroiliac joint pain Muscle spasm Lumbosacral spondylosis Lumbar back pain with radiculopathy affecting left lower extremity Asthma Encounter for physical examination Family history of hypertension Migraines Surgical History No history of previous surgery Family History Mother Hypertension Diabetes mellitus Father Hypertension CAD (coronary artery disease) Diabetes mellitus Social History (Updated 05/16/25 @ 08:08 by Rashmi Rivera MD) Housing: House Alcohol intake: current Alcohol intake frequency: a few times a week Alcohol type: beer Patient Tobacco Use Status: Current someday Tobacco user Tobacco use type: Cigarette Cigarettes Per Day: 3 e-Cigarette/Vaping Use: Never Used Second Hand Smoke Exposure: Yes service: No Current occupational status: employed Current occupational exposures/hazards: No Cognitive needs: No Hearing needs: No Vision needs: No Questionnaire Thrive Questionnaire Date Thrive assessed: 11/13/24 I am a: Patient What is your living situation today?: I have a steady place to live Within the past 12 months, did the food you bought not last and you didn't have the money to get more?: I choose not to answer this question Within the past 12 months, did you worry whether your food would run out before you got money to buy more?: I choose not to answer this question Do you have trouble paying for medicines?: I choose not to answer this question Do you have trouble getting transportation to medical appointments?: I choose not to answer this question Do you have trouble paying your heating and electricity bill?: I choose not to answer this question Do you have trouble taking care of your child, family member or friend?: No Do you have trouble with day-to-day activities such as bathing, preparing meals, shopping, managing finances, etc.?: No Are you currently unemployed and looking for a job?: No Are you interested in more education?: No Please select the resources that you would like help with: None Currently or been in a relationship where the following occur: No concerns reported THRIVE Score: 0 KATE-7 AMB Questionnaire KATE-7 Date KATE - 7 assessed: 11/13/24 Source: Developed by Drs. Davidson Kingston, Amy Gerber, Jesus Salcido and colleagues, with an educational steve from [employer]. Review of Systems Const All systems reviewed & are unremarkable except as noted in HPI and below Card Denies chest pain at rest, Denies chest pain with activity, Denies edema, Denies irregular heart rhythm, Denies claudication, Denies dyspnea, Denies dyspnea on exertion, Denies orthopnea, Denies paroxysmal nocturnal dyspnea and Denies slow heart rate Resp Denies cough, Denies dyspnea and Denies dyspnea on exertion Physical exam (Primary Care) Vital Signs: Last Vital Signs Pulse 76 05/16/25 07:51 BP 118/72 05/16/25 07:51 Pulse Ox 98 05/16/25 07:51 Oxygen Delivery Method Room Air 05/16/25 07:51 BMI result Body Mass Index 22.4 Tobacco/Smoking Status: Tobacco use Status Tobacco use date assessed 11/13/24 05/16/25 07:54 Patient Tobacco Use Status Current someday Tobacco 05/16/25 07:54 Tobacco use type Cigarette 05/16/25 07:54 e-Cigarette/Vaping Use Never Used 05/16/25 07:54 Are you ready to quit: Yes Tobacco cessation counseling provided: No Relapse Prevention: discussed the importance of a supportive environment, discussed extending NRT, discussed negative mood or depression after quitting, weight gain after smoking is common and discussed dietary, exercise and/or lifestyle changes Number of minutes spent counselin CPT code: 01113 - 4-10 Minutes Thrive Assessment: Date of Thrive Assessment Date Thrive assessed 11/13/24 05/16/25 07:54 Currently or been in a relationship where the following occur: No concerns reported Resp Effort & Inspection: normal respiratory effort Auscultation: clear to auscultation bilaterally Cardio Jugular venous distension: no JVD Rate: regular rate Rhythm: regular rhythm Heart sounds: S1 normal heart sound present and S2 normal heart sound present Extrem General: Yes full ROM Coding Level of Care Code Complex visit Add On G2211 Diagnoses Chronic migraine with aura without status migrainosus, not intractable G43.E09 Status migrainosus presence: without status migrainosus Intractability: not intractable Lumbar back pain with radiculopathy affecting left lower extremity M54.16 Urinary frequency R35.0 Mild major depression F32.0 Additional Codes Vital Signs *Quality* - CPT code: 52127 - 4-10 Minutes ([id number]) Time Spent (min) 24 Assessment & Plan Assessment & Plan (1) Chronic migraine with aura: Comment: 01/14 he is interested in Botox Code(s): G43.E09 - Chronic migraine with aura, not intractable, without status migrainosus Category: Medical Qualifiers: Status migrainosus presence: without status migrainosus Intractability: not intractable Qualified Code(s): G43.E09 - Chronic migraine with aura, not intractable, without status migrainosus (2) Lumbar back pain with radiculopathy affecting left lower extremity: Code(s): M54.16 - Radiculopathy, lumbar region Category: Medical (3) Urinary frequency: Code(s): R35.0 - Frequency of micturition Category: Medical (4) Mild major depression: Code(s): F32.0 - Major depressive disorder, single episode, mild Category: Medical Plan Plan 1. Migraine The patient reports his migraines are more or less controlled with his current regimen. He continues to use rizatriptan, which is working effectively. He has a follow-up appointment with his neurologist scheduled for June 08. 2. Back Pain The patient is being followed by pain management for his back pain. He is scheduled to receive another injection tomorrow. He was advised to mention his ongoing issues to the paint grinder at his appointment. 3. Urinary Incontinence The patient's urinary incontinence is reported to be managed. Continue current management. 4. Tobacco Use The patient smokes about 5 cigarettes per day and reports he is ready to quit. He was counseled that quitting is not easy and may be associated with moodiness and some weight gain. The importance of having a supportive environment was discussed. He was advised to look up 'quit works' and was informed about options like nicotine patches. 5, Depression In remission Orders: Orders Comprehensive [place]. Panel Fast 6 Months M54.16 - Radiculopathy, lumbar region Lipid Panel 6 Months E78.5 - Hyperlipidemia, unspecified Medications: Refilled rizatriptan take 1 tab at onset of headache; if no relief may repeat 1 tab after at least 2 hrs; max = 3 tabs/24 hr orally PRN; 10 mg every 2 to 4 hours 10 mg PO .onset PRN 12 tabs 2RF migraine headache MDD 20mg G43.E09 - Chronic migraine with aura, not intractable, without status migrainosus
== END 2025-05-16 08:13 | disposition home or self-care (01) ==
LOC: HO.HMCH 07:37
PROVIDERS: PCP Internal Medicine; Visit Provider Internal Medicine
DX: G43.E09 Chronic migraine with aura, not intractable, without status migrainosus (principal); M54.16 Radiculopathy, lumbar region; R35.0 Frequency of micturition; F32.0 Major depressive disorder, single episode, mild

== ENCOUNTER → 2025-05-16 07:36 | Outpatient (BNVA) | payer OTHER, SELFPAY | PROVIDERS: PCP Internal Medicine; Visit Provider Internal Medicine | DX: G43.E09 Chronic migraine with aura, not intractable, without status migrainosus (principal); M54.16 Radiculopathy, lumbar region; R35.0 Frequency of micturition; F32.0 Major depressive disorder, single episode, mild | CPT/HCPCS: 99212 ==

== ENCOUNTER 2025-05-17 06:30 | Outpatient (REF) | payer OTHER, SELFPAY ==
--- NOTE | ~2025-05-17 | FL_ITS ---
EXAMINATION: FL GUIDANCE ONLY HISTORY: M54.16 - Radiculopathy, lumbar region COMPARISON: None available. TECHNIQUE: Fluoroscopy time: 8 seconds. Cumulative Dose: 1.30 mGy. DAP: 175.70 mGycm2 Images: 3. FINDINGS: Fluoroscopic spot films of the lumbar spine demonstrate a needle in place and a small amount of intrathecal contrast material. FL/FL guidance in treatment room IMPRESSION: Fluoroscopy during procedure. Please see procedure report for additional information. Electronically signed by: Davidson Hooker MD 05/17/2025 02:24 PM [facility]
--- OUTSIDE RECORDS SUMMARY | 2025-05-17 06:33 | XMS_ITS | Clinical Summary ---
Author Organization [facility] Address [address] [place] [address] Phone Care Team Providers Care Back Order Clerk Name Role Phone Rashmi Rivera MD Primary Care Provider [phone] Allergies No known active allergies Social History Tobacco Use Types Packs/Day Years Used Date Smoking Tobacco: Never Assessed Sex and Gender Information Value Date Recorded Sex Assigned at Not on file Legal Sex Male 9:28 AM EDT Gender Identity Not on file Sexual Orientation Not on file Plan of Treatment Health Maintenance Due Date Last Done Comments Hepatitis B Vaccines (1 of 3 - 19+ 3-dose series) 2004 HPV Vaccines (1 - 3-dose SCD M series) 2012 Depression Screening 06/07/2024 Cholesterol Screening (Lipid Panel) 11/14/2024 HIV Screening 11/14/2024 Hepatitis C Screening 11/14/2024 Social Influencers of Health Screening 11/14/2024 COVID-19 Vaccine (3 - 2024-2 6 season) 2025 09/24/2021, 06/05/2021 Influenza Vaccine (#1) 2025 , 03/19/2017, 05/15/2015 DTaP,Tdap,and Td Vaccines (2 - [...] topic Insurance MEDICAID - [place] Care Teams Back Order Clerk Relationship Specialty Start Date End Date Rashmi Rivera MD [address] [place] [address] , [facility] [address] [facility]A: [facility] [place] PCP - General Internal Medicine 11/14/24
== END 2025-05-17 06:31 | disposition home or self-care (01) ==
LOC: CF 06:30
PROVIDERS: Visit Provider Internal Medicine
DX: M54.16 Radiculopathy, lumbar region (principal)
CPT/HCPCS: 62323; J2003; J3301; Q9967

== ENCOUNTER 2025-05-17 10:07 | Outpatient (AMB) | payer OTHER, SELFPAY ==
[2025-05-17 10:11] VITALS: BP 110/72; PULSE 87; RESP 16; O2SAT 98
--- NOTE | 2025-05-17 10:11 | MHC.OFFVIS ---
Vital Signs 05/17/25 10:11 05/17/25 10:57 BP 110/72 138/80 Blood Pressure Location Lt brachial Lt brachial Position Sitting Sitting Respiration 16 16 Pulse 87 78 Pulse Source Pulse Oximeter Pulse Oximeter Pulse Oximetry (%) 98 98 Oxygen Delivery Method Room Air Room Air Intake Visit Reasons: (L) Parasagittal Interlaminar L4-L5 TACOS Allergies No Known Allergies (No Known Allergies*) Allergy (Verified 05/17/25 10:12) Medication List - Last Reconciled 05/17/25 by Precious Brown LPN alpha lipoic acid 100 mg PO DAILY 3 months MDD 100mg amitriptyline 50 mg (2 x 25 mg) PO BEDTIME 90 days MDD 50mg baclofen 5 mg PO BEDTIME 3 months MDD 5mg cholecalciferol (vitamin D3) 250 mcg PO QWEEK 3 months MDD 1250mcg ibuprofen 800 mg PO Q8H PRN 30 days lidocaine 5% 1 patch topically; magnesium oxide 400 mg PO DAILY oxybutynin chloride ER 5 mg PO DAILY 90 days rizatriptan 10 mg PO .onset PRN MDD 20mg HPI HPI (L) Parasagittal Interlaminar L4-L5 TACOS: Details: Patient presents for scheduled procedure. Denies any recent cough, cold, infection, fever or other significant changes in medical history since last office visit. [facility] Medical History (Updated 05/16/25 @ 08:14 by Rashmi Rivera MD) Mild major depression Chronic migraine with aura Cervical dystonia Hematuria Hypercholesterolemia Nocturia Sacroiliac joint pain Muscle spasm Lumbosacral spondylosis Lumbar back pain with radiculopathy affecting left lower extremity Asthma Encounter for physical examination Family history of hypertension Migraines Surgical History No history of previous surgery Family History Mother Hypertension Diabetes mellitus Father Hypertension CAD (coronary artery disease) Diabetes mellitus Social History (Updated 05/16/25 @ 08:08 by Rashmi Rivera MD) Housing: House Alcohol intake: current Alcohol intake frequency: a few times a week Alcohol type: beer Patient Tobacco Use Status: Current someday Tobacco user Tobacco use type: Cigarette Cigarettes Per Day: 3 e-Cigarette/Vaping Use: Never Used Second Hand Smoke Exposure: Yes service: No Current occupational status: employed Current occupational exposures/hazards: No Cognitive needs: No Hearing needs: No Vision needs: No Physical Exam Vital Signs: Last Vital Signs Pulse 87 05/17/25 10:11 Resp 16 05/17/25 10:11 BP 110/72 05/17/25 10:11 Pulse Ox 98 05/17/25 10:11 Oxygen Delivery Method Room Air 05/17/25 10:11 Office Procedures AMB Joint Injection/Aspiration Joint Injection/Aspiration Details: Interlaminar epidural steroid injection, L4/5, Left parasaggital After obtaining written consent, pre-procedure blood pressure and heart rate were stable and recorded in the nursing record. The patient was placed in the prone position. The lumbar area was widely prepped with chloraprep and draped in sterile fashion. Fluoroscopic guidance was used to identify the desired interlaminar space and for needle placement. Subcutaneous 0.5% lidocaine was used to anesthetize the skin overlying the target. A 20-gauge Bob needle was advanced to the epidural space using loss of resistance to contrast technique under fluoroscopic AP and contralateral oblique views. There was no evidence of heme or CSF and no paresthesias were elicited with needle placement. Confirmation of epidural needle placement was performed with 1cc of omnipaque 180. Next 3 ml 0.5% lidocaine mixed with 80 mg triamcinilone was administered epidurally with no pain elicited on injection. The needle tract tubing was then cleared with 1 ml of 0.5% lidocaine. The needle was removed, skin cleansed and a sterile bandage was applied. The patient tolerated the procedure well and no complications were encountered. Following the procedure the patient's vital signs were stable. The patient was discharged home in good condition with post-procedural instructions. Time Out: Immediately prior to the procedure, the following was verbally confirmed that there is a signed consent form and that the correct patient, planned procedure, site and side are consistent with documentation and that necessary equipment and/or blood products are available prior to the start of the case. Complications: none EBL: <2 cc Coding 23592 - Caudal/Lumbar Epidural/Interlaminar with fluoroscopy Procedure code (CPT) selection complete Assessment & Plan Assessment & Plan (1) Lumbar back pain with radiculopathy affecting left lower extremity: Code(s): M54.16 - Radiculopathy, lumbar region Category: Medical Plan Patient is status post left L4-5 interlaminar TACOS. Patient tolerated procedure well and was discharged home in stable condition with discharge instructions. All questions were answered. We will follow-up via telephone or in clinic to assess response to therapy. A follow-up appointment was made during today's visit. Orders: Orders FL guidance in treatment room Today M54.16 - Radiculopathy, lumbar region Coding Level of Care Code Procedure Only Diagnoses Lumbar back pain with radiculopathy affecting left lower extremity M54.16 CPT Codes Coding - Joint 11: 51613 - Caudal/Lumbar Epidural/Interlaminar with fluoroscopy ([id number])
[2025-05-17 10:57] VITALS: BP 138/80; PULSE 78; RESP 16; O2SAT 98
== END 2025-05-17 12:12 | disposition home or self-care (01) ==
LOC: HO.PMCPRC 10:07
PROVIDERS: PCP Internal Medicine; Visit Provider Internal Medicine
DX: M54.16 Radiculopathy, lumbar region (principal)
CPT/HCPCS: 62323